=== PATIENT | female | born 1950 | race Caucasian/White ===

== ENCOUNTER → 2018-09-24 | Outpatient (CLI) | payer MEDICARE ==
--- NOTE | 2018-09-24 14:13 | XR ---
EXAMINATION TYPE: XR chest 2V DATE OF EXAM: 09/24/2018 COMPARISON: NONE HISTORY: Shortness of breath TECHNIQUE: Frontal and lateral views of the chest are obtained. FINDINGS: Scattered senescent parenchymal changes noted. Hyperinflation compatible with COPD. Patchy density within the region of the lingula may reflect underlying infiltrate. Correlate clinical ly and progress studies are recommended. Heart size is stable. Mediastinal structures are stable and grossly unremarkable. No evidence for hilar prominence. Degenerative changes dorsal spine. IMPRESSION: 1. Patchy density within the region of the lingula may reflect underlying infiltrate. Correlate clini kenan and progress studies are recommended.
== END | disposition home or self-care (01) ==
LOC: RADXRYALE 13:54
PROVIDERS: ATTEND Physician Assistant Medical
DX: J98.4 Other disorders of lung (principal)
CPT/HCPCS: 71046

== ENCOUNTER 2019-03-27 16:18 | Inpatient (IN) | payer MEDICARE ==
[2019-03-27] MEDS ORDERED: VANCOMYCIN IV PER PHARMACY 1 EACH MISC MISCELLANE PRN (16:27)
[2019-03-27] MEDS ORDERED: CEFEPIME 2 GM in SODIUM CHLORIDE 0.9% 100 ML IVPB STA (16:29)
[2019-03-27] MEDS ORDERED: IPRATROPIUM-ALBUTEROL 3 ML NEB INHALATION STA (16:31)
--- NOTE | 2019-03-27 16:35 | ED ---
General Adult HPI - General Chief complaint: Fever Stated complaint: sepsis Time Seen by Provider: 03/27/19 16:20 - History of Present Illness Initial comments: Patient is a 69-year-old female with a history of dementia who presents with a chief complaint of fever, weakness, and a fall at home. The patient is unable to offer history, history obtained by EMS. They stated that they were called after the patient had a fall while trying to get up from the commode. The patient did not fall completely to the floor as her family was there and caught her. They state that the patient has been gradually weaker over the last 3 day s. They cannot identify an inciting incident. There are no aggravating or alleviating factors. Patient currently is nonverbal, it is reported by EMS of the patient is DO NOT RESUSCITATE DO NOT INTUBATE. Per EMS, patient was febrile at 102.9 with an axillary temperature, 91% on room air, hypotensive initially but responsive to IV fluid. 6:08 PM Family bedside, they state that over the last 3 days, the patient has become weaker and less coherent. She has been frequently urinating, and they note a strong odor to the urine - Related Data Home Medications Medication Instructions Recorded Confirmed Multivitamins, Thera [Multivitamin 1 tab PO DAILY 11/21/15 03/27/19 (formulary)] Clopidogrel Bisulfate [Plavix] 75 mg PO DAILY 03/27/19 03/27/19 Donepezil [Aricept] 10 mg PO DAILY 03/27/19 03/27/19 Memantine [Namenda] 10 mg PO DAILY 03/27/19 03/27/19 risperiDONE [RisperDAL] 1 mg PO HS 03/27/19 03/27/19 traZODone HCL 150 mg PO HS 03/27/19 03/27/19 Previous Rx's Medication Instructions Recorded Acetaminophen Tab [Tylenol] 650 mg PO Q6HR PRN #0 tab 11/28/15 Aspirin EC [Ecotrin] 325 mg PO DAILY #0 tablet. 11/28/15 Atorvastatin [Lipitor] 80 mg PO HS #30 tab 11/28/15 Metoprolol Tartrate [Lopressor] 50 mg PO BID #60 tab 11/28/15 Nitroglycerin Sl Tabs [Nitrostat] 0.4 mg SUBLINGUAL Q5M PRN #30 tab 11/28/15 Allergies Allergy/AdvReac Type Severity Reaction Status Date / Time No Known Allergies Allergy Verified 04/14/16 11:50 Review of Systems ROS Statement: Those systems with pertinent positive or pertinent negative responses have been documented in the HPI. ROS Other: All systems not noted in ROS Statement are negative. Limitations: ROS unobtainable due to patients medical condition Past Medical History Past Medical History: Coronary Artery Disease (CAD), COPD, Hypertension History of Any Multi-Drug Resistant Organisms: None Reported Additional Past Surgical History / Comment(s): ANKLE SURGERY Past Anesthesia/Blood Transfusion Reactions: No Reported Reaction Additional Past Anesthesia/Blood Transfusion Reaction / Comment(s): NEVER RECEIVED BLOOD Past Psychological History: Anxiety, Depression Smoking Status: Current every day smoker Past Alcohol Use History: None Reported Past Drug Use History: None Reported - Past Family History Mother History Unknown: Yes Additional Family Medical History / Comment(s): PATIENT ADOPTED Father History Unknown: Yes Additional Family Medical History / Comment(s): PATIENT ADOPTED. General Exam Limitations: altered mental status, physical limitation General appearance: alert, in distress Head exam: Present: atraumatic, normocephalic Eye exam: Present: normal appearance ENT exam: Present: mucous membranes dry Neck exam: Present: normal inspection, other (No JVD) Respiratory exam: Present: respiratory distress, wheezes Cardiovascular Exam: Present: normal rhythm, tachycardia GI/Abdominal exam: Present: soft. Absent: distended, tenderness Rectal exam: Present: deferred External exam: Present: normal external exam Extremities exam: Present: other (Distal pulses are thready, kneecaps appear to be mildly mottled) Back exam: Present: normal inspection Neurological exam: Present: altered Psychiatric exam: Present: anxious Skin exam: Present: dry, intact, mottled Course Vital Signs 03/27/19 03/27/19 03/27/19 16:27 16:34 16:53 Temperature 103.0 F H Pulse Rate 120 H 114 H 120 H Pulse Rate [ Bilateral Radial] Respiratory 45 H 36 H 33 H Rate Blood Pressure 114/80 O2 Sat by Pulse 92 L Oximetry 03/27/19 03/27/19 03/27/19 17:30 18:30 19:51 Temperature Pulse Rate 108 H 105 H 114 H Pulse Rate [ Bilateral Radial] Respiratory 30 H 30 H 45 H Rate Blood Pressure 98/62 97/63 152/85 O2 Sat by Pulse 95 95 92 L Oximetry 03/27/19 03/27/19 03/27/19 20:04 20:07 20:48 Temperature 99.5 F 100.2 F H Pulse Rate 115 H Pulse Rate [ 116 H Bilateral Radial] Respiratory 32 H 24 Rate Blood Pressure 111/80 O2 Sat by Pulse 92 L Oximetry 03/27/19 20:52 Temperature Pulse Rate 120 H Pulse Rate [ Bilateral Radial] Respiratory 28 H Rate Blood Pressure 131/86 O2 Sat by Pulse 91 L Oximetry Procedures - Central Line Placement Right IJ Consent Obtained: verbal consent, written consent Patient Placed on Monitor/Pulse Ox: Yes Prep: mask, gown, gloves Central Line Prep: Chlorhexidine scrub Local Anesthesia Used: Lidocaine 1% Amount of Anesthesia Used (mls): 3 Ultrasound Used for Placement: Yes Central Line Lumen Inserted: triple Bloods Obtained for Lab: Yes Central Line Position: good blood return, all ports aspirated, flushed, capped, sutured in place with nylon Dressing Applied: Tegaderm Post Procedure X-Ray: tip of catheter in good position Patient Tolerated Procedure: well Complications: none Medical Decision Making - Medical Decision Making Patient presents with a chief complaint of weakness and fever. On initial evaluation, patient is febrile, hypoxic on room air, and hypotensive. She appears septic, at this time source unknown. 2 IVs established, patient given 30 mL per KG of IV fluid, cultures and lactic drawn. We'll get a straight cath urine. Patient started on vancomycin and cefepime empirically for sepsis. We'll evaluate with a chest x-ray, computed tomography scan of the abdomen and pelvis, computed tomography scan of the head. Patient left including cardiac enzymes and venous blood gas were obtained. 6:08 PM Vital evaluation of this patient shows white blood cells of 4.0, hemoglobin stable at 12.2. Like acid is 3.5, alk phos of 1.35. Urinalysis shows evidence of urinary tract infection. Culture sent. A multiple re-evaluations, patient's vital signs continue to improve. She is currently at computed tomography scan. We'll repeat lactic after fluid boluses. 7:[address] shows right sided hydronephrosis and a distal 5mm ureteral calculus. patient persistently hypotensive. I discussed the results with the family, they are agreeable to central line. Case discussed with Dr. Beltrán. family agreeable to urologic procedure if needed. Case discussed with Dr. Camejo who accepts admission. Page placed to Dr. Castillo for ICU admission. CXR shows slight worsening of lung infiltrates, will hold on further fluid boluses. line tip in SVC, ok to use. 8:50 PM Case discussed with Dr. Walker. He is aware of the patient. repeat lactic is 1.3, VBG shows a PH of 7.35. - Lab Data Result diagrams: 03/28/19 05:10 03/28/19 05:10 Lab Results 03/27/19 03/27/19 03/27/19 Range/Units 16:22 16:22 16:22 WBC 4.0 (3.8-10.6) k/uL RBC 4.70 (3.80-5.40) m/uL Hgb 12.2 (11.4-16.0) gm/dL Hct 38.8 (34.0-46.0) % MCV 82.6 (80.0-100.0) fL MCH 26.0 (25.0-35.0) pg MCHC 31.4 (31.0-37.0) g/dL RDW 17.1 H (11.5-15.5) % Plt Count 254 (150-450) k/uL Neutrophils % 91 % Lymphocytes % 3 % Monocytes % 1 % Eosinophils % 1 % Basophils % 1 % Neutrophils # 3.6 (1.3-7.7) k/uL Lymphocytes # 0.1 L (1.0-4.8) k/uL Monocytes # 0.1 (0-1.0) k/uL Eosinophils # 0.1 (0-0.7) k/uL Basophils # 0.0 (0-0.2) k/uL Manual Slide Review Performed Anisocytosis Slight PT (9.0-12.0) sec INR (<1.2) VBG pH (7.31-7.41) VBG pCO2 (37-51) mmHg VBG HCO3 (24-28) mmol/L Sodium 142 (137-145) mmol/L Potassium 3.5 (3.5-5.1) mmol/L Chloride 106 (98-107) mmol/L Carbon Dioxide 23 (22-30) mmol/L Anion Gap 13 mmol/L BUN 22 H (7-17) mg/dL Creatinine 0.71 (0.52-1.04) mg/dL Est GFR (CKD-EPI)AfAm >90 (>60 ml/min/1.73 sqM) Est GFR (CKD-EPI)NonAf 87 (>60 ml/min/1.73 sqM) Glucose 196 H (74-99) mg/dL Lactic Ac Sepsis Rflx Plasma Lactic Acid Duncan 3.5 H* (0.7-2.0) mmol/L Calcium 8.7 (8.4-10.2) mg/dL Total Bilirubin 0.4 (0.2-1.3) mg/dL AST 87 H (14-36) U/L ALT 26 (9-52) U/L Alkaline Phosphatase 135 H (38-126) U/L Troponin I (0.000-0.034) ng/mL Total Protein 6.6 (6.3-8.2) g/dL Albumin 3.3 L (3.5-5.0) g/dL Urine Color Urine Appearance (Clear) Urine pH (5.0-8.0) Ur Specific Cook (1.001-1.035) Urine Protein (Negative) Urine Glucose (UA) (Negative) Urine Ketones (Negative) Urine Blood (Negative) Urine Nitrite (Negative) Urine Bilirubin (Negative) Urine Urobilinogen (<2.0) mg/dL Ur Leukocyte Esterase (Negative) Urine RBC (0-5) /hpf Urine WBC (0-5) /hpf Urine WBC Clumps (None) /hpf Ur Squamous Epith Cells (0-4) /hpf Hyaline Casts (0-2) /lpf Urine Mucus (None) /hpf 03/27/19 03/27/19 03/27/19 Range/Units 16:22 16:22 16:22 WBC (3.8-10.6) k/uL RBC (3.80-5.40) m/uL Hgb (11.4-16.0) gm/dL Hct (34.0-46.0) % MCV (80.0-100.0) fL MCH (25.0-35.0) pg MCHC (31.0-37.0) g/dL RDW (11.5-15.5) % Plt Count (150-450) k/uL Neutrophils % % Lymphocytes % % Monocytes % % Eosinophils % % Basophils % % Neutrophils # (1.3-7.7) k/uL Lymphocytes # (1.0-4.8) k/uL Monocytes # (0-1.0) k/uL Eosinophils # (0-0.7) k/uL Basophils # (0-0.2) k/uL Manual Slide Review Anisocytosis PT 11.0 (9.0-12.0) sec INR 1.0 (<1.2) VBG pH (7.31-7.41) VBG pCO2 (37-51) mmHg VBG HCO3 (24-28) mmol/L Sodium (137-145) mmol/L Potassium (3.5-5.1) mmol/L Chloride (98-107) mmol/L Carbon Dioxide (22-30) mmol/L Anion Gap mmol/L BUN (7-17) mg/dL Creatinine (0.52-1.04) mg/dL Est GFR (CKD-EPI)AfAm (>60 ml/min/1.73 sqM) Est GFR (CKD-EPI)NonAf (>60 ml/min/1.73 sqM) Glucose (74-99) mg/dL Lactic Ac Sepsis Rflx Plasma Lactic Acid Duncan (0.7-2.0) mmol/L Calcium (8.4-10.2) mg/dL Total Bilirubin (0.2-1.3) mg/dL AST (14-36) U/L ALT (9-52) U/L Alkaline Phosphatase (38-126) U/L Troponin I 0.083 H* (0.000-0.034) ng/mL Total Protein (6.3-8.2) g/dL Albumin (3.5-5.0) g/dL Urine Color Yellow Urine Appearance Cloudy H (Clear) Urine pH 6.0 (5.0-8.0) Ur Specific Cook 1.011 (1.001-1.035) Urine Protein 1+ H (Negative) Urine Glucose (UA) Negative (Negative) Urine Ketones Negative (Negative) Urine Blood Small H (Negative) Urine Nitrite Negative (Negative) Urine Bilirubin Negative (Negative) Urine Urobilinogen <2.0 (<2.0) mg/dL Ur Leukocyte Esterase Large H (Negative) Urine RBC 5 (0-5) /hpf Urine WBC 168 H (0-5) /hpf Urine WBC Clumps Moderate H (None) /hpf Ur Squamous Epith Cells 1 (0-4) /hpf Hyaline Casts 13 H (0-2) /lpf Urine Mucus Rare H (None) /hpf 03/27/19 03/27/19 03/27/19 Range/Units 16:22 17:06 19:33 WBC (3.8-10.6) k/uL RBC (3.80-5.40) m/uL Hgb (11.4-16.0) gm/dL Hct (34.0-46.0) % MCV (80.0-100.0) fL MCH (25.0-35.0) pg MCHC (31.0-37.0) g/dL RDW (11.5-15.5) % Plt Count (150-450) k/uL Neutrophils % % Lymphocytes % % Monocytes % % Eosinophils % % Basophils % % Neutrophils # (1.3-7.7) k/uL Lymphocytes # (1.0-4.8) k/uL Monocytes # (0-1.0) k/uL Eosinophils # (0-0.7) k/uL Basophils # (0-0.2) k/uL Manual Slide Review Anisocytosis PT (9.0-12.0) sec INR (<1.2) VBG pH 7.35 (7.31-7.41) VBG pCO2 42 (37-51) mmHg VBG HCO3 23 L (24-28) mmol/L Sodium (137-145) mmol/L Potassium (3.5-5.1) mmol/L Chloride (98-107) mmol/L Carbon Dioxide (22-30) mmol/L Anion Gap mmol/L BUN (7-17) mg/dL Creatinine (0.52-1.04) mg/dL Est GFR (CKD-EPI)AfAm (>60 ml/min/1.73 sqM) Est GFR (CKD-EPI)NonAf (>60 ml/min/1.73 sqM) Glucose (74-99) mg/dL Lactic Ac Sepsis Rflx Y Plasma Lactic Acid Duncan 1.3 (0.7-2.0) mmol/L Calcium (8.4-10.2) mg/dL Total Bilirubin (0.2-1.3) mg/dL AST (14-36) U/L ALT (9-52) U/L Alkaline Phosphatase (38-126) U/L Troponin I (0.000-0.034) ng/mL Total Protein (6.3-8.2) g/dL Albumin (3.5-5.0) g/dL Urine Color Urine Appearance (Clear) Urine pH (5.0-8.0) Ur Specific Cook (1.001-1.035) Urine Protein (Negative) Urine Glucose (UA) (Negative) Urine Ketones (Negative) Urine Blood (Negative) Urine Nitrite (Negative) Urine Bilirubin (Negative) Urine Urobilinogen (<2.0) mg/dL Ur Leukocyte Esterase (Negative) Urine RBC (0-5) /hpf Urine WBC (0-5) /hpf Urine WBC Clumps (None) /hpf Ur Squamous Epith Cells (0-4) /hpf Hyaline Casts (0-2) /lpf Urine Mucus (None) /hpf Critical Care Time Critical Care Time: Yes Total Critical Care Time: 31 (minutes) Critical Care Time: Due to a high probability of clinically significant, life threatening deterioration, the patient required my highest level of preparedness to intervene emergently and I personally spent this critical care time directly and personally managing the patient. This critical care time included obtaining a history; examining the patient; pulse oximetry; ordering and review of studies; arranging urgent treatment with development of a management plan; evaluation of patient's response to treatment; frequent reassessment; and, discussions with other providers. Disposition Clinical Impression: Urinary tract infection, Sepsis, Altered mental status, Lactic acidosis, Respiratory failure, Ureteral stone, Pneumonia Disposition: ADMITTED IP TO THIS [facility] Condition: Critical Decision to Admit Reason: Admit from EC - Out of Hospital Transfer - Req. Specs Out of Hospital Transfer - Requested Specifics: Intensive Care Unit
[2019-03-27 16:46] LABS: Anisocytosis Slight; Basophils % (A) 1 %; Eosinophils # (A) 0.1 k/uL (0-0.7); Eosinophils % (A) 1 %; HCT 38.8 % (34.0-46.0); HGB 12.2 gm/dL (11.4-16.0); Lymphocytes # (A) 0.1 k/uL (1.0-4.8); Lymphocytes % (A) 3 %; MCHC 31.4 g/dL (31.0-37.0); MCV 82.6 fL (80.0-100.0); Mean Platelet Volume 7.3; Monocytes # (A) 0.1 k/uL (0-1.0); Monocytes % (A) 1 %; Neutrophils # (A) 3.6 k/uL (1.3-7.7); Neutrophils % (A) 91 %; Platelet Count 254 k/uL (150-450); RDW 17.1 % (11.5-15.5)
[2019-03-27 16:49] LABS: Appearance,Urine Cloudy (Clear); Bilirubin,Urine Negative (Negative); Blood,Urine Small (Negative); Color,Urine Yellow; Glucose,Urine (UA) Negative (Negative); Hyaline Casts,Urine 13 /lpf (0-2); Ketones,Urine Negative (Negative); Leukocyte Esterase,Urine Large (Negative); Mucus,Urine Rare /hpf; Nitrite,Urine Negative (Negative); Protein,Urine 1+ (Negative); RBC,Urine 5 /hpf (0-5); Specific Gravity,Urine 1.011 (1.001-1.035); Squamous Epithelial Cell,Urine 1 /hpf (0-4); Urobilinogen,Urine <2.0 mg/dL (<2.0); WBC,Urine 168 /hpf (0-5)
[2019-03-27] MEDS: SODIUM CHLORIDE 0.9% 500 ML 500 ML IV SCH ×2 (16:50→16:51)
[2019-03-27] MEDS ORDERED: VANCOMYCIN 1,500 MG in SODIUM CHLORIDE 0.9% 250 ML IVPB STA (16:54)
[2019-03-27 16:56] LABS: ALT 26 U/L (9-52); AST 87 U/L (14-36); African American GFR (CKD) >90 (>60 ml/min/1.73 sqM); Albumin 3.3 g/dL (3.5-5.0); Alkaline Phosphatase 135 U/L (38-126); Anion Gap 13 mmol/L; Blood Urea Nitrogen 22 mg/dL (7-17); Calcium 8.7 mg/dL (8.4-10.2); Carbon Dioxide 23 mmol/L (22-30); Chloride 106 mmol/L (98-107); Glucose 196 mg/dL (74-99); Potassium 3.5 mmol/L (3.5-5.1); Sodium 142 mmol/L (137-145); Total Bilirubin 0.4 mg/dL (0.2-1.3); Total Protein 6.6 g/dL (6.3-8.2)
--- NOTE | 2019-03-27 17:01 | XR ---
EXAMINATION TYPE: XR chest 1V portable DATE OF EXAM: 03/27/2019 COMPARISON: 09/24/2018 HISTORY: Altered mental status. Sepsis. Fever. TECHNIQUE: Single frontal view of the chest is obtained. FINDINGS: There is coarsening of the interstitial pulmonary markings. There is no gross heart failur e. Thoracic aorta is atheromatous. There is no pleural effusion. There are chest leads. IMPRESSION: Pulmonary interstitial fibrosis and COPD. No significant change. Normal heart.
--- NOTE | 2019-03-27 18:42 | CT ---
EXAMINATION TYPE: CT abdomen pelvis w con DATE OF EXAM: 03/27/2019 COMPARISON: None HISTORY: Fever. CT DLP: 579.9 mGycm Automated exposure control for dose reduction was used. TECHNIQUE: Helical acquisition of images was performed from the lung bases through the pelvis. CONTRAST: Performed without Oral Contrast and with IV Contrast, patient injected with 100ml mL of Isovue 300. FINDINGS: There is some patchy airspace infiltrate in both lower lobes and more on the right side. Heart size i s normal. There is no pericardial effusion. There is noncalcified 12 mm somewhat spiculated nodule in the lingula left upper lobe. Liver shows no focal defect. Gallbladder appears normal. There is no evidence of splenic mass. There is small hiatal hernia. Bile ducts are not dilated. There is no evidence of pancreatic mass. There is no adrenal mass. There are multiple large . calcifications in the right kidney. these measur e up to 1.6 cm. There is right-sided hydronephrosis and hydroureter. There is possible 5 mm calcul us in the distal right ureter. There is Stapleton catheter in the urinary bladder. There is retained fecal material in the large bowel. There is no free fluid in the abdomen and pelvis . There is no sign of free air. There is no mesenteric edema. There is small calcification in the left kidney that measure up to 4 mm that are probably vascular. The lumbar vertebra have normal alignment. There is 20% depression superior endplate of T11 vertebra. The bony pelvis is intact. IMPRESSION: MULTIPLE RENAL CALCULI AND MUCH LARGER ON THE RIGHT SIDE. OBSTRUCTION OF THE RIGHT UPPER COLLECTING S YSTEM PROBABLY DUE TO STONE IN THE DISTAL RIGHT URETER. NO DEFINITE OBSTRUCTION SEEN ON THE LEFT SIDE . HETEROGENEOUS CORTICAL ENHANCEMENT OF THE RIGHT KIDNEY COMPARED TO THE LEFT IS SUGGESTIVE OF PYELON EPHRITIS. BILATERAL LOWER LOBE PATCHY AIRSPACE PNEUMONIA THAT IS WORSE ON THE RIGHT SIDE. SPICULATED DENSITY LINGULA LEFT UPPER LOBE. FOLLOW-UP RECOMMENDED. THIS APPEARS NEW COMPARED TO OLD C HEST CT SCAN OF 11/21/2015. TUMOR IS POSSIBLE. LOWER LOBE PULMONARY INFILTRATES ALSO PRESENT ON OLD CT SCAN AND SLIGHTLY INCREASED.
--- NOTE | 2019-03-27 18:44 | CT ---
EXAMINATION TYPE: CT brain wo con DATE OF EXAM: 03/27/2019 COMPARISON: 11/25/2015 HISTORY: Fever. CT DLP: 1086.6 mGycm Automated exposure control for dose reduction was used. FINDINGS: There is cerebral cortical atrophy. There is no mass effect nor midline shift. There is no sign of in tracranial hemorrhage. The calvarium is intact. There is some debris in the external auditory canals bilaterally. IMPRESSION: CEREBRAL ATROPHY. NO ACUTE INTRACRANIAL ABNORMALITY. NO CHANGE.
[2019-03-27 19:05] LABS: VBG PH 7.35 (7.31-7.41)
[2019-03-27] MEDS ORDERED: NOREPINEPHRINE 4 MG in SODIUM CHLORIDE 0.9% 250 ML IV ONE (19:10)
--- NOTE | 2019-03-27 19:58 | XR ---
EXAMINATION TYPE: XR chest 1V DATE OF EXAM: 03/27/2019 COMPARISON: 03/27/2019 HISTORY: Central line placement TECHNIQUE: Single frontal view of the chest is obtained. FINDINGS: There is right jugular catheter with the tip in the superior vena cava. There is coarse in terstitial pulmonary edema. Thoracic aorta is atheromatous. There are chest leads. IMPRESSION: No pneumothorax. Pulmonary interstitial edema increased slightly compared to recent exam today. This could relate to acute heart failure.
[2019-03-27] MEDS ORDERED: NALOXONE 0.4 MG/ML 1 ML VIAL IV PRN (20:23)
[2019-03-27] MEDS ORDERED: MIDAZOLAM 2 MG/2 ML VIAL ONE (21:29)
[2019-03-27] MEDS ORDERED: PHENYLEPHRINE-0.9% NACL SYG 1 MG/10 ML SYRINGE ONE (21:29)
[2019-03-27] MEDS ORDERED: fentaNYL (PF) 50 MCG/ML 2 ML AMP ONE (21:29)
[2019-03-27] MEDS ORDERED: ROCURONIUM BROMIDE 10 MG/ML 10 ML VIAL IV ONE (21:29)
[2019-03-27] MEDS ORDERED: PROPOFOL 10 MG/ML 20 ML VIAL IV ONE (21:29)
[2019-03-27] MEDS ORDERED: SUCCINYLCHOLINE CHLORIDE 100 MG/5 ML SYR IV ONE (21:29)
--- NOTE | 2019-03-27 21:31 | P.GSCN ---
History of Present Illness Consult date: 03/27/19 Reason for Consult: UTI with sepsis Requesting physician: Yuni Camejo History of present illness: The patient is a 69-year-old white female with no prior history of urolithiasis. She awoke this morning feeling normal. However, in the late morning she experienced difficulty voiding and was noted to be very weak. She was brought to the emergency room, at which time she was noted to have a fever. She exhibited signs of sepsis. A computed tomography scan shows evidence of right hydroureteronephrosis due to a 5 mm right distal ureteral calculus. She also has multiple large right renal calculi, as well as a small left renal calculus. Review of Systems - Constitutional Reports fever, Reports weakness - Genitourinary Genitourinary: Reports kidney stones Past Medical History Past Medical History: Coronary Artery Disease (CAD), COPD, Hypertension History of Any Multi-Drug Resistant Organisms: None Reported Additional Past Surgical History / Comment(s): ANKLE SURGERY Past Anesthesia/Blood Transfusion Reactions: No Reported Reaction Additional Past Anesthesia/Blood Transfusion Reaction / Comm: NEVER RECEIVED BLOOD Past Psychological History: Anxiety, Depression Smoking Status: Current every day smoker Past Alcohol Use History: None Reported Past Drug Use History: None Reported - Past Family History Mother History Unknown: Yes Additional Family Medical History / Comment(s): PATIENT ADOPTED Father History Unknown: Yes Additional Family Medical History / Comment(s): PATIENT ADOPTED. Medications and Allergies Home Medications Medication Instructions Recorded Confirmed Type Multivitamins, Thera [Multivitamin 1 tab PO DAILY 11/21/15 03/27/19 History (formulary)] Acetaminophen Tab [Tylenol] 650 mg PO Q6HR PRN #0 tab 11/28/15 03/27/19 Rx Aspirin EC [Ecotrin] 325 mg PO DAILY #0 tablet. 11/28/15 03/27/19 Rx Atorvastatin [Lipitor] 80 mg PO HS #30 tab 11/28/15 03/27/19 Rx Metoprolol Tartrate [Lopressor] 50 mg PO BID #60 tab 11/28/15 03/27/19 Rx Nitroglycerin Sl Tabs [Nitrostat] 0.4 mg SUBLINGUAL Q5M PRN #30 tab 11/28/15 03/27/19 Rx Clopidogrel Bisulfate [Plavix] 75 mg PO DAILY 03/27/19 03/27/19 History Donepezil [Aricept] 10 mg PO DAILY 03/27/19 03/27/19 History Memantine [Namenda] 10 mg PO DAILY 03/27/19 03/27/19 History risperiDONE [RisperDAL] 1 mg PO HS 03/27/19 03/27/19 History traZODone HCL 150 mg PO HS 03/27/19 03/27/19 History Allergies Allergy/AdvReac Type Severity Reaction Status Date / Time No Known Allergies Allergy Verified 04/14/16 11:50 Surgical - Exam Vital Signs Temp Pulse Resp BP Pulse Ox 103.0 F H 120 H 40 H 114/80 92 L 03/27/19 16:27 03/27/19 16:27 03/27/19 16:27 03/27/19 16:27 03/27/19 16:27 - General well developed, well nourished, moderate distress - Abdomen Abdomen: soft, non tender, no guarding, no rigid, no rebound Results - Labs 03/27/19 16:22 03/27/19 16:22 Abnormal Lab Results - Last 24 Hours (Table) 03/27/19 03/27/19 03/27/19 Range/Units 16:22 16:22 16:22 RDW 17.1 H (11.5-15.5) % Lymphocytes # 0.1 L (1.0-4.8) k/uL VBG HCO3 (24-28) mmol/L BUN 22 H (7-17) mg/dL Glucose 196 H (74-99) mg/dL Plasma Lactic Acid Duncan 3.5 H* (0.7-2.0) mmol/L AST 87 H (14-36) U/L Alkaline Phosphatase 135 H (38-126) U/L Troponin I (0.000-0.034) ng/mL Albumin 3.3 L (3.5-5.0) g/dL Urine Appearance (Clear) Urine Protein (Negative) Urine Blood (Negative) Ur Leukocyte Esterase (Negative) Urine WBC (0-5) /hpf Urine WBC Clumps (None) /hpf Hyaline Casts (0-2) /lpf Urine Mucus (None) /hpf 03/27/19 03/27/19 03/27/19 Range/Units 16:22 16:22 16:22 RDW (11.5-15.5) % Lymphocytes # (1.0-4.8) k/uL VBG HCO3 23 L (24-28) mmol/L BUN (7-17) mg/dL Glucose (74-99) mg/dL Plasma Lactic Acid Duncan (0.7-2.0) mmol/L AST (14-36) U/L Alkaline Phosphatase (38-126) U/L Troponin I 0.083 H* (0.000-0.034) ng/mL Albumin (3.5-5.0) g/dL Urine Appearance Cloudy H (Clear) Urine Protein 1+ H (Negative) Urine Blood Small H (Negative) Ur Leukocyte Esterase Large H (Negative) Urine WBC 168 H (0-5) /hpf Urine WBC Clumps Moderate H (None) /hpf Hyaline Casts 13 H (0-2) /lpf Urine Mucus Rare H (None) /hpf Diabetes panel 03/27/19 Range/Units 16:22 Sodium 142 (137-145) mmol/L Potassium 3.5 (3.5-5.1) mmol/L Chloride 106 (98-107) mmol/L Carbon Dioxide 23 (22-30) mmol/L BUN 22 H (7-17) mg/dL Creatinine 0.71 (0.52-1.04) mg/dL Glucose 196 H (74-99) mg/dL Calcium 8.7 (8.4-10.2) mg/dL AST 87 H (14-36) U/L ALT 26 (9-52) U/L Alkaline Phosphatase 135 H (38-126) U/L Total Protein 6.6 (6.3-8.2) g/dL Albumin 3.3 L (3.5-5.0) g/dL Calcium panel 03/27/19 Range/Units 16:22 Calcium 8.7 (8.4-10.2) mg/dL Albumin 3.3 L (3.5-5.0) g/dL Pituitary panel 03/27/19 Range/Units 16:22 Sodium 142 (137-145) mmol/L Potassium 3.5 (3.5-5.1) mmol/L Chloride 106 (98-107) mmol/L Carbon Dioxide 23 (22-30) mmol/L BUN 22 H (7-17) mg/dL Creatinine 0.71 (0.52-1.04) mg/dL Glucose 196 H (74-99) mg/dL Calcium 8.7 (8.4-10.2) mg/dL Adrenal panel 03/27/19 Range/Units 16:22 Sodium 142 (137-145) mmol/L Potassium 3.5 (3.5-5.1) mmol/L Chloride 106 (98-107) mmol/L Carbon Dioxide 23 (22-30) mmol/L BUN 22 H (7-17) mg/dL Creatinine 0.71 (0.52-1.04) mg/dL Glucose 196 H (74-99) mg/dL Calcium 8.7 (8.4-10.2) mg/dL Total Bilirubin 0.4 (0.2-1.3) mg/dL AST 87 H (14-36) U/L ALT 26 (9-52) U/L Alkaline Phosphatase 135 H (38-126) U/L Total Protein 6.6 (6.3-8.2) g/dL Albumin 3.3 L (3.5-5.0) g/dL - Imaging CT scan - abdomen: report reviewed, image reviewed Assessment and Plan (1) Calculus of kidney Current Visit: Yes Status: Acute Code(s): N20.0 - CALCULUS OF KIDNEY SNOMED Code(s): 81945466 (2) Hydronephrosis with renal and ureteral calculous obstruction Current Visit: Yes Status: Acute Code(s): N13.2 - HYDRONEPHROSIS WITH RENAL AND URETERAL CALCULOUS OBSTRUCTION SNOMED Code(s): 914727153 (3) Ureteral stone Current Visit: Yes Status: Acute Code(s): N20.1 - CALCULUS OF URETER SNOMED Code(s): 04168086 (4) Acute pyelonephritis Current Visit: Yes Status: Acute Code(s): N10 - ACUTE PYELONEPHRITIS SNOME D Code(s): 94196490 Plan: The patient has received IV antibiotics. I have discussed her condition with her daughter. I have suggested she undergo cystoscopy with right ureteral stent insertion. The rationale for this was discussed. Also discussed were po tential risks, which include anesthesia, ureteral injury, and inability to successfully place a stent. The possible need for a nephrostomy tube was discussed. Also discussed was the fact that she will require definitive management of her urinary calculi after her infection has resolved. Time with Patient: Greater than 30
[2019-03-27] MEDS ORDERED: SODIUM CHLORIDE 0.9% 1,000 ML IV ONE (21:35)
[2019-03-27 22:44] LABS: Glucose,Whole Blood 224 mg/dL (75-99)
--- NOTE | 2019-03-27 22:45 | P.OP ---
Date of Procedure: 03/27/19 Preoperative Diagnosis: Acute right pyelonephritis, right hydronephrosis secondary to right ureteral calculus Postoperative Diagnosis: Same Procedure(s) Performed: Cystoscopy, right ureteral stent insertion Anesthesia: AMIRA Surgeon: Johnson Gaona Estimated Blood Loss (ml): 0 IV fluids (ml): 600 Pathology: none sent Condition: stable Disposition: PACU Indications for Procedure: The patient is a 69-year-old white female with no prior history of urolithiasis. She awoke this morning feeling normal. However, in the late morning she experienced difficulty voiding and was noted to be very weak. She was brought to the emergency room, at which time she was noted to have a fever. She exhibited signs of sepsis. A computed tomography scan shows evidence of right hydroureteronephrosis due to a 5 mm right distal ureteral calculus. She also has multiple large right renal calculi, as well as a small left renal calculus. She now comes for cystoscopy with right ureteral stent insertion. Operative Findings: Obstructing right distal ureteral calculus. Purulent urine drained from right kidney. Description of Procedure: The patient was taken to the operating room and placed in the dorsolithotomy pos ition, with legs supported in Cheng stirrups. The external genitalia was prepped and draped sterilely. The 30 lens was used to introduce the 22-Sammarinese Stortz cystoscopic sheath through the urethra and into the bladder under direct vision. The bladder was examined in its entirety. The left ureteral orifice appeared normal. The right ureteral orifice was edematous. No tumors or foreign bodies were seen. An angle-tip 0.035 inch Glidewire was passed through the cystoscope. The right ureteral orifice was cannulated, and the Glidewire was slowly advanced. Obstruction from the calculus was met. As the Glidewire removed the calculus, paste-like material drained from the right ureteral orifice. However, the Glidewire could not be advanced beyond the calculus. Contrast was seen within the ureter, which was noted to be dilated and tortuous. A 10-Sammarinese cone-tipped catheter was used to cannulate the right ureteral orifice, and normal saline was injected in a retrograde fashion to dislodge the calculus. The Glidewire once again was passed through the cystoscope, and into the right ureter. With some manipulation, it was possible to advance the Glidewire beyond the calculus and up to the right renal pelvis, where it coiled. It should be noted that the ureter appeared to be somewhat tortuous as the Glidewire was advanced. A 26 cm, 6-Sammarinese double-J ureteral stent was placed o josé miguel the wire. Proper stent positioning was verified fluoroscopically and endoscopically. Purulent urine drained through the stent. With the beak of the cystoscope immediately adjacent to the distal end of the stent, a specimen of urine was obtained and sent for culture and sensitivity. The cystoscope was removed, and a Stapleton catheter was inserted into the bladder. The patient tolerated the procedure well was transferred directly to the ICU.
[2019-03-27 23:21] LABS: ABG Base Excess -5.7 mmol/L; ABG HCO3 21 mmol/L (21-25); ABG Oxygen Saturation 99.3 % (94-97); ABG PCO2 46 mmHg (35-45); ABG PH 7.27 (7.35-7.45); ABG PO2 303 mmHg (83-108); ABG TCO2 23 mmol/L (19-24); Allen Test Performed? Yes
--- NOTE | 2019-03-27 23:45 | XR ---
EXAM: XR Chest, 1 View CLINICAL HISTORY: Endotracheal tube TECHNIQUE: Frontal view of the chest. COMPARISON: No relevant prior studies available. FINDINGS: Lungs: Diffuse airspace opacities which may represent pulmonary edema versus an infectious process. Pleural space: Unremarkable. No pneumothorax. Heart: Unremarkable. No cardiomegaly. Mediastinum: Unremarkable. Bones/joints: Degenerative changes of the osseous structures. Tubes, lines and devices: Endotracheal tube terminates 3 cm above the antonette. Right IJ central venous catheter with tip in the distal SVC. Enteric tube is seen with tip in the gastric body. Recommend advancement by 5 cm. IMPRESSION: 1. Endotracheal tube terminates 3 cm above the antonette. 2. Right IJ central venous catheter with tip in the distal SVC. 3. Enteric tube is seen with tip in the gastric body. Recommend advancement by 5 cm. 4. Diffuse airspace opacities which may represent pulmonary edema versus an infectious process.
[2019-03-28] MEDS: PANTOPRAZOLE 40 MG/10 ML VIAL IVP SCH ×2 (00:31→08:03)
[2019-03-28] MEDS: SODIUM CHLORIDE 0.9% 1,000 ML IV SCH ×2 (00:45→23:50)
[2019-03-28 01:28] LABS: Glucose,Whole Blood 219 mg/dL (75-99)
[2019-03-28] MEDS: PROPOFOL 1,000 MG in EMPTY BAG 1 BAG IV SCH ×3 (01:50→20:01)
[2019-03-28] MEDS: INSULIN ASPART (NovoLOG) 100 UNIT/ML VIAL SQ SCH ×4 (01:59→17:22)
[2019-03-28] MEDS: HEPARIN SODIUM,PORCINE 5,000 UNIT/ML 1 ML VIAL SQ SCH ×3 (02:00→15:14)
--- NOTE | 2019-03-28 03:21 | XR ---
EXAM: XR Chest, 1 View CLINICAL HISTORY: OG tube placement TECHNIQUE: Frontal view of the chest. COMPARISON: X-ray dated 03/27/2019 FINDINGS: Lungs: Diffuse airspace opacities. Pleural space: Probable bilateral pleural effusions, left greater than right. No pneumothorax. Heart: Unchanged. Mediastinum: Unremarkable. Bones/joints: Unchanged. Tubes, lines and devices: Enteric tube is seen coursing of the stomach with the tip not visualized. Right IJ central venous catheter tip at the cavoatrial junction. Endotracheal tube within the thoracic inlet terminating 2 cm above the antonette. IMPRESSION: 1. Enteric tube is seen coursing of the stomach with the tip not visualized. 2. Right IJ central venous catheter tip at the cavoatrial junction. 3. Endotracheal tube within the thoracic inlet terminating 2 cm above the antonette. 4. Diffuse airspace opacities. 5. Probable bilateral pleural effusions, left greater than right.
[2019-03-28] MEDS: NOREPINEPHRINE 8 MG in SODIUM CHLORIDE 0.9% 250 ML IV SCH ×2 (05:07→15:10)
[2019-03-28 05:13] LABS: Glucose,Whole Blood 197 mg/dL (75-99)
[2019-03-28] MEDS: VANCOMYCIN 1,250 MG in SODIUM CHLORIDE 0.9% 250 ML IVPB SCH ×2 (05:23→17:23)
[2019-03-28 05:48] LABS: ALT 30 U/L (9-52); AST 65 U/L (14-36); African American GFR (CKD) >90 (>60 ml/min/1.73 sqM); Albumin 2.7 g/dL (3.5-5.0); Alkaline Phosphatase 87 U/L (38-126); Anion Gap 8 mmol/L; Blood Urea Nitrogen 14 mg/dL (7-17); Calcium 7.3 mg/dL (8.4-10.2); Carbon Dioxide 24 mmol/L (22-30); Chloride 111 mmol/L (98-107); Glucose 190 mg/dL (74-99); Magnesium 1.2 mg/dL (1.6-2.3); Phosphorus 3.9 mg/dL (2.5-4.5); Potassium 3.1 mmol/L (3.5-5.1); Sodium 143 mmol/L (137-145); Total Bilirubin 0.6 mg/dL (0.2-1.3); Total Protein 5.8 g/dL (6.3-8.2)
[2019-03-28 05:57] LABS: Anisocytosis Slight; HCT 32.8 % (34.0-46.0); HGB 10.4 gm/dL (11.4-16.0); Hypochromasia Moderate; MCHC 31.7 g/dL (31.0-37.0); MCV 85.2 fL (80.0-100.0); Mean Platelet Volume 7.1; Platelet Count 225 k/uL (150-450); RBC 3.85 m/uL (3.80-5.40); RDW 16.8 % (11.5-15.5); WBC 20.2 k/uL (3.8-10.6)
--- NOTE | 2019-03-28 06:10 | FL ---
FLUOROSCOPY 60 seconds of fluoroscopy time were utilized during placement of a right ureteral stent. 2 images doc ument the procedure.
[2019-03-28] MEDS ORDERED: Potassium Replacement Protocol 1 EACH MISC MISCELLANE PRN (06:26)
[2019-03-28] MEDS ORDERED: Magnesium Replacement Protocol 1 EACH MISC MISCELLANE PRN (06:26)
[2019-03-28] MEDS: MAGNESIUM SULFATE-D5W PMX 1 GM in DEXTROSE/WATER 1 100ML.BAG IVPB SCH ×3 (06:50→10:40)
[2019-03-28] MEDS: POTASSIUM BICARBONATE/CIT AC 20 MEQ TABLET.EFF NG-TUBE SCH ×2 (06:50→07:13)
[2019-03-28 06:52] LABS: ABG HCO3 24 mmol/L (21-25); ABG Oxygen Saturation 97.7 % (94-97); ABG PCO2 48 mmHg (35-45); ABG PO2 111 mmHg (83-108); ABG TCO2 25 mmol/L (19-24)
[2019-03-28 06:54] LABS: Band Neutrophils % 39 %; Metamyelocytes % 2 %; Neutrophils % (M) 55 %; Nucleated Red Blood Cells 0 /100 WBC (0-0); Total Cells Counted 100
[2019-03-28] MEDS: IPRATROPIUM-ALBUTEROL 3 ML NEB INHALATION PRN ×4 (07:39→19:12)
[2019-03-28] MEDS: CEFEPIME 2 GM in SODIUM CHLORIDE 0.9% 100 ML IVPB SCH ×3 (08:03→23:50)
--- NOTE | 2019-03-28 11:19 | P.CNPUL ---
History of Present Illness Consult date: 03/28/19 Reason for consult: other (septic shock) Chief complaint: difficulty voiding, weakness, and fever. History of present illness: this is a 69-year-old female with history of multiple medical problems including dementia,coronary artery disease, chronic obstructive pulmonary disease, hypertension, depression, generalized anxiety disorder,patient presented to the ER mostly with 1 day history of weakness, fever, and apparently falling at home. Upon arrival to the ER, patient was confused, and she had altered mental stat us. Family has been noticing generalized weakness for the last 3 days. And upon arrival she had a temp of 102.9. And her O2 saturations was 91% on room air. Her blood pressure was noted to be low upon presentation.patient was also complaining of difficulty voiding, her urinalysiswas consistent with urinary tract infection,lactic acid was 3.5, hence the patient was felt to be septic. Responded initially to fluid boluses, however she was later placed on norepinephrine, and a central line was placed.CT of the abdomen and pelvis showed right-sided hydronephrosis and hydroureter. Also raise the possibility of a 5 mm calculus in the distal right ureter.but also raised the possibility of a spiculated density in the lingula left upper lobe, was not present on a previous CT of the chest from 2016, and the radiologist raised the possibility of malignancy involving the left lung. Patchy basilar infiltrates were noted. Patient was seen by urology on consultation,she underwent cystoscopy, right ureteral stent insertion, this was done under general anesthesia, patient came back on mechanical ventilation, and on norepinephrine presently at 0.15 mcg/kg/m. Patient also received 2 L of fluid boluses prior to norepinephrine. Patient is now in the ICU, he is mechanically ventilated, sedated, and her vent settings are assist control rate of 18 tidal volume of 455-45% PEEP of 5. She is also on propofol at 55 mcg/kg/m.today's labs showed improvement in her lactic acid down to 1.3 WBC count is 20.2 hemoglobin is 10.4.ABG showed a pO2 of 111 pCO2 of 48 pH of 7.30 hence her rate was increased from 16-18.chest x-ray showed adequate placement of the endotracheal tube, it also showed right IJ central line in place, and diffuse airspace opacities with small bilateral pleural effusions left greater than right.blood cultures are showing gram-negative bacilli. Final report is pending. Review of Systems ROS unobtainable: due to endotracheal tube Past Medical History Past Medical History: Coronary Artery Disease (CAD), COPD, Hypertension History of Any Multi-Drug Resistant Organisms: None Reported Additional Past Surgical History / Comment(s): ANKLE SURGERY Past Anesthesia/Blood Transfusion Reactions: No Reported Reaction Additional Past Anesthesia/Blood Transfusion Reaction / Comment(s): NEVER RECEIVED BLOOD Past Psychological History: Anxiety, Depression Smoking Status: Current every day smoker Past Alcohol Use History: None Reported Past Drug Use History: None Reported - Past Family History Mother History Unknown: Yes Additional Family Medical History / Comment(s): PATIENT ADOPTED Father History Unknown: Yes Additional Family Medical History / Comment(s): PATIENT ADOPTED. Medications and Allergies Home Medications Medication Instructions Recorded Confirmed Type Multivitamins, Thera [Multivitamin 1 tab PO DAILY 11/21/15 03/27/19 History (formulary)] Acetaminophen Tab [Tylenol] 650 mg PO Q6HR PRN #0 tab 11/28/15 03/27/19 Rx Aspirin EC [Ecotrin] 325 mg PO DAILY #0 tablet. 11/28/15 03/27/19 Rx Atorvastatin [Lipitor] 80 mg PO HS #30 tab 11/28/15 03/27/19 Rx Metoprolol Tartrate [Lopressor] 50 mg PO BID #60 tab 11/28/15 03/27/19 Rx Nitroglycerin Sl Tabs [Nitrostat] 0.4 mg SUBLINGUAL Q5M PRN #30 tab 11/28/15 03/27/19 Rx Clopidogrel Bisulfate [Plavix] 75 mg PO DAILY 03/27/19 03/27/19 History Donepezil [Aricept] 10 mg PO DAILY 03/27/19 03/27/19 History Memantine [Namenda] 10 mg PO DAILY 03/27/19 03/27/19 History risperiDONE [RisperDAL] 1 mg PO HS 03/27/19 03/27/19 History traZODone HCL 150 mg PO HS 03/27/19 03/27/19 History Allergies Allergy/AdvReac Type Severity Reaction Status Date / Time No Known Allergies Allergy Verified 04/14/16 11:50 Physical Exam Vitals: Vital Signs Temp Pulse Pulse Resp BP Pulse Ox 03/28/19 07:57 76 16 06/23/19 07:39 71 16 03/28/19 06:00 73 16 93 L 03/28/19 05:45 73 16 93 L 03/28/19 05:30 74 16 93 L 03/28/19 05:15 67 22 93 L 03/28/19 05:00 70 19 93 L 03/28/19 04:45 79 30 H 92 L 03/28/19 04:30 77 27 H 92 L 03/28/19 04:15 80 35 H 92 L 03/28/19 04:00 98.4 F 79 24 91 L 03/28/19 03:45 80 17 95 03/28/19 03:30 80 17 94 L 03/28/19 03:15 85 17 94 L 03/28/19 03:00 88 18 94 L 03/28/19 02:45 97 18 92 L 03/28/19 02:30 84 27 H 92 L 03/28/19 02:15 87 27 H 93 L 03/28/19 02:00 85 21 92 L 03/28/19 01:45 94 25 H 87 L 03/28/19 01:30 96 20 90 L 03/28/19 01:15 97 21 88 L 03/28/19 01:00 94 32 H 91 L 03/28/19 00:45 93 20 96 03/28/19 00:30 95 15 96 03/28/19 00:26 96 19 96 03/28/19 00:15 98 19 96 03/28/19 00:00 104 H 17 92/65 96 03/27/19 23:45 112 H 17 96 03/27/19 23:30 116 H 28 H 96 03/27/19 23:15 116 H 16 97 03/27/19 23:00 112 H 45 H 98 03/27/19 22:45 112 H 30 H 97 03/27/19 20:52 120 H 28 H 131/86 91 L 03/27/19 20:48 100.2 F H 116 H 24 03/27/19 20:07 99.5 F 03/27/19 20:04 115 H 32 H 111/80 92 L 03/27/19 19:51 114 H 45 H 152/85 92 L 03/27/19 18:30 105 H 30 H 97/63 95 03/27/19 17:30 108 H 30 H 98/62 95 03/27/19 16:53 120 H 33 H 03/27/19 16:34 114 H 36 H 03/27/19 16:27 103.0 F H 120 H 45 H 114/80 92 L Intake and Output 03/27/19 03/28/19 03/28/19 22:59 06:59 14:59 Intake Total 600 310.133 Output Total 0 935 Balance 600 -624.867 Intake: IV 600 245 Sodium Chloride 0.9% 1, 120 000 ml @ 20 mls/hr IV . Q24H [facility] Rx#:[id number] Vancomycin 1,250 mg In 125 Sodium Chloride 0.9% 250 ml @ 125 mls/hr IVPB Q12H [facility] Rx#:[id number] Intake, IV Titration 65.133 Amount Norepinephrine 4 mg In 31.323 Sodium Chloride 0.9% 250 ml @ 0.05 MCG/KG/MIN 12. 961 mls/hr IV .[id number] [facility] Rx#:[id number] Propofol 1,000 mg In 33.810 Empty Bag 1 bag @ Titrate IV .Q0M [facility] Rx#: [id number] Output: Urine 935 Estimated Blood Loss 0 Other: Voiding Method Indwelling Catheter Weight 68.039 kg 58.8 kg ABP, PAP, CO, CI - Last 8 Hours Arterial Blood Pressure 107/56 Arterial Blood Pressure 99/55 Arterial Blood Pressure 110/57 Arterial Blood Pressure 93/47 Arterial Blood Pressure 140/66 Arterial Blood Pressure 93/55 Arterial Blood Pressure 105/56 Arterial Blood Pressure 109/58 Arterial Blood Pressure 96/52 Arterial Blood Pressure 112/57 Arterial Blood Pressure 106/58 Arterial Blood Pressure 99/54 Arterial Blood Pressure 95/54 Physical Exam: Revealed a 69-year-old female in no distress, on mechanical ventilation. Head: Atraumatic normocephalic, endotracheal tube is intact. Orogastric tube is intact. HEENT:[Neck is supple.] [No neck masses.] [No thyromegaly.] [No JVD.]dry mucous membranes be Chest: [minimal fine crackles at the bases bilaterally, no rhonchi no wheezes..] Cardiac Exam: [Normal S1 and S2, no S3 gallop, no murmur.] Abdomen: [Soft, nontender, no megaly, no rebound, no guarding, normal bowel sounds.] Extremities: [No clubbing, no edema, no cyanosis.] Neurological Exam: cannot be assessed, patient is sedated, presently on propofol. Psychiatric: Cannot be assessed. Lymphatics: No lymphadenopathy. Skin: No rashes.slightly mottled lower extremities noted. Skin is dry. Results - Laboratory Findings CBC and BMP: 03/28/19 05:10 03/28/19 05:10 ABG ABG pH 7.30 (7.35-7.45) L 03/28/19 06:48 ABG pCO2 48 mmHg (35-45) H 03/28/19 06:48 ABG pO2 111 mmHg (83-108) H 03/28/19 06:48 ABG O2 Saturation 97.7 % (94-97) H 03/28/19 06:48 PT/INR, D-dimer PT 11.0 sec (9.0-12.0) 03/27/19 16:22 INR 1.0 (<1.2) 03/27/19 16:22 Abnormal lab findings: Abnormal Labs 03/27/19 03/27/19 03/27/19 16:22 16:22 16:22 WBC Hgb Hct RDW 17.1 H Neutrophils # (Manual) Lymphocytes # 0.1 L Lymphocytes # (Manual) Metamyelocytes # (Man) ABG pH ABG pCO2 ABG pO2 ABG Total CO2 ABG O2 Saturation VBG HCO3 Potassium Chloride BUN 22 H Glucose 196 H POC Glucose (mg/dL) Plasma Lactic Acid Duncan 3.5 H* Calcium Magnesium AST 87 H Alkaline Phosphatase 135 H Troponin I Total Protein Albumin 3.3 L Urine Appearance Urine Protein Urine Blood Ur Leukocyte Esterase Urine WBC Urine WBC Clumps Hyaline Casts Urine Mucus 03/27/19 03/27/19 03/27/19 16:22 16:22 16:22 WBC Hgb Hct RDW Neutrophils # (Manual) Lymphocytes # Lymphocytes # (Manual) Metamyelocytes # (Man) ABG pH ABG pCO2 ABG pO2 ABG Total CO2 ABG O2 Saturation VBG HCO3 23 L Potassium Chloride BUN Glucose POC Glucose (mg/dL) Plasma Lactic Acid Duncan Calcium Magnesium AST Alkaline Phosphatase Troponin I 0.083 H* Total Protein Albumin Urine Appearance Cloudy H Urine Protein 1+ H Urine Blood Small H Ur Leukocyte Esterase Large H Urine WBC 168 H Urine WBC Clumps Moderate H Hyaline Casts 13 H Urine Mucus Rare H 03/27/19 03/27/19 03/28/19 22:42 23:16 01:27 WBC Hgb Hct RDW Neutrophils # (Manual) Lymphocytes # Lymphocytes # (Manual) Metamyelocytes # (Man) ABG pH 7.27 L ABG pCO2 46 H ABG pO2 303 H ABG Total CO2 ABG O2 Saturation 99.3 H VBG HCO3 Potassium Chloride BUN Glucose POC Glucose (mg/dL) 224 H 219 H Plasma Lactic Acid Duncan Calcium Magnesium AST Alkaline Phosphatase Troponin I Total Protein Albumin Urine Appearance Urine Protein Urine Blood Ur Leukocyte Esterase Urine WBC Urine WBC Clumps Hyaline Casts Urine Mucus 03/28/19 03/28/19 03/28/19 05:10 05:10 05:11 WBC 20.2 H Hgb 10.4 L Hct 32.8 L RDW 16.8 H Neutrophils # (Manual) 18.90 H Lymphocytes # Lymphocytes # (Manual) 0.40 L Metamyelocytes # (Man) 0.40 H ABG pH ABG pCO2 ABG pO2 ABG Total CO2 ABG O2 Saturation VBG HCO3 Potassium 3.1 L Chloride 111 H BUN Glucose 190 H POC Glucose (mg/dL) 197 H Plasma Lactic Acid Duncan Calcium 7.3 L Magnesium 1.2 L AST 65 H Alkaline Phosphatase Troponin I Total Protein 5.8 L Albumin 2.7 L Urine Appearance Urine Protein Urine Blood Ur Leukocyte Esterase Urine WBC Urine WBC Clumps Hyaline Casts Urine Mucus 03/28/19 06:48 WBC Hgb Hct RDW Neutrophils # (Manual) Lymphocytes # Lymphocytes # (Manual) Metamyelocytes # (Man) ABG pH 7.30 L ABG pCO2 48 H ABG pO2 111 H ABG Total CO2 25 H ABG O2 Saturation 97.7 H VBG HCO3 Potassium Chloride BUN Glucose POC Glucose (mg/dL) Plasma Lactic Acid Duncan Calcium Magnesium AST Alkaline Phosphatase Troponin I Total Protein Albumin Urine Appearance Urine Protein Urine Blood Ur Leukocyte Esterase Urine WBC Urine WBC Clumps Hyaline Casts Urine Mucus - Diagnostic Findings Chest x-ray: image reviewed (as noted in HPI.) Additional studies: CT of abdomen and pelvis as noted in HPI. Assessment and Plan Assessment: impression: 1 acute hypoxic respiratory failure secondary to gram-negative sepsis and septic shock. 2 acute urinary tract infection and hydronephrosis secondary to ureterolithiasis status post cystoscopy and stent placement. 3 acute gram-negative bacteremia, source is the urine unless for otherwise. 4 suspect some component of mild interstitial edema noted on the chest x-ray, possibility of evolving ARDS is not entirely ruled out.the findings could be related to the fluid boluses that the patient was given. 5 spiculated the left hilar nodule, will eventually need outpatient follow-up and dedicated CT of the chest which could be done on outpatient basis, however obviously the patient is not the greatest candidate for any pulmonary surgical intervention. 6 multiple comorbidities including history of dementia, hypertension, degenerative joint disease,coronary artery disease,dyslipidemia,previous evaluation for CABG, however the patient was felt to be a poor candidate for myocardial revascularization, and she was managed conservatively. Recommendation: Continue ventilatory support, nutritional support, GI and DVT pr ophylaxis, antibiotics, bronchodilators, patient is not ready for any form of weaning at this point, plan to keep the patient on mechanical ventilation, continue norepinephrine,/hemodynamic support, adjust antibiotics accordingly after the final culture and sensitivity is available, blood cultures are showing preliminary gram-negative bacilli, and again the most likely source is the urine. We will continue to follow. Prognosis is relatively guarded. Patient is critically ill, we will follow closely. Time with Patient: Greater than 30
[2019-03-28 11:24] LABS: Glucose,Whole Blood 202 mg/dL (75-99)
--- NOTE | 2019-03-28 14:42 | P.PN ---
Progress Note - Text Progress Note Date: 03/28/19 The patient remains on the ventilator for respiratory failure. She is also requiring the use of vasopressors. The Stapleton catheter is draining clear yellow urine. Her cultures of shown Proteus species, which strongly suggests not only a urinary tract source but that her stones are likely infected. In view of this, she will likely be advised to undergo an elective right percutaneous nephrolithotomy at some point in the future. For now, would continue Stapleton catheter drainage and broad-spectrum antibiotics.
[2019-03-28 17:18] LABS: Glucose,Whole Blood 177 mg/dL (75-99)
--- NOTE | 2019-03-28 18:34 | P.HPIM ---
History of Present Illness H&P Date: 03/28/19 Chief Complaint: Fever, weakness and fall at home Mr. Patiño is a 69-year-old female with a past medical history of dementia, coronary artery disease, COPD, hypertension brought in via EMS for having a fall at home while trying to get up from the commode. Patient is intubated and in the ICU currently. So most of the history is obtained from the ED notes and nursing staff report. The patient has been weak and was not herself for the past 3 days, family thought that this was because of her dementia. But she became gradually weaker to the extent that she had a fall while trying to get up from the commode. Family reported that she has been having increased frequency of urination and also strong odor to the urine. At the time of admission patient was suppressed hypoxic and hypotensive. Patient was given 2 L of IV normal saline bolus and started on maintenance f luids. She also received a dose of vancomycin and cefepime empirically. Urine analysis was positive for large leukocyte esterase. CAT scan of the abdomen and pelvis was showing right-sided hydronephrosis and the distal 5 mm ureteral calculus. Urology Dr. Salgado was consulted. Last night patient had removal of the stone and a ureteral stent was placed. Patient's blood cultures were positive for Proteus. So vancomycin has been discontinued and cefepime is continued. Patient has history of COPD, so after the procedure the patient could not be extubated. Patient's medications have been reviewed. Active Medications Albuterol/Ipratropium (Duoneb 0.5 Mg-3 Mg/3 Ml Soln) 3 ml INHALATION RT-Q4H PRN PRN Reason: Shortness Of Breath Or Wheezing Last Admin: 03/28/19 15:26 Dose: 3 ml Documented by: Heparin Sodium (Porcine) (Heparin) 5,000 unit SQ Q8HR CHELITA Last Admin: 03/28/19 15:14 Dose: 5,000 unit Documented by: Vancomycin HCl 1,250 mg/ (Sodium Chloride) 250 mls @ 125 mls/hr IVPB Q12H CHELITA Last Admin: 03/28/19 17:23 Dose: 125 mls/hr Documented by: Sodium Chloride (Saline 0.9%) 1,000 mls @ 20 mls/hr IV .Q24H CHELITA Last Admin: 03/28/19 00:45 Dose: 20 mls/hr Documented by: Propofol 1,000 mg/ IV Solution 100 mls @ 0 mls/hr IV .Q0M [facility]; Protocol Last Admin: 03/28/19 04:00 Dose: 55 mcg/kg/min, 19.404 mls/hr Documented by: Norepinephrine Bitartrate 8 mg (/ Sodium Chloride) 258 mls @ 5.689 mls/hr IV .Q24H [facility]; Protocol Last Admin: 03/28/19 05:07 Dose: 0.35 mcg/kg/min, 39.822 mls/hr Documented by: Cefepime HCl 2 gm/ Sodium (Chloride) 100 mls @ 200 mls/hr IVPB Q8HR [facility] Last Admin: 03/28/19 15:14 Dose: 200 mls/hr Documented by: Insulin Aspart (Novolog) 0 unit SQ 0000,0600,1200,1800 [facility]; Protocol Last Admin: 03/28/19 17:22 Dose: 2 unit Documented by: Miscellaneous Information (Magnesium Per Protocol) 1 each MISCELLANE DAILY PRN; Protocol PRN Reason: Per Protocol Miscellaneous Information (Potassium Per Protocol) 1 each MISCELLANE DAILY PRN; Protocol PRN Reason: Per Protocol Morphine Sulfate (Morphine Sulfate (Inj)) 2 mg IV Q2HR PRN PRN Reason: Pain Scale 4 to 5 Naloxone HCl (Narcan) 0.2 mg IV Q2M PRN PRN Reason: Opioid Reversal Pantoprazole Sodium (Protonix) 40 mg IVP DAILY [facility] Last Admin: 03/28/19 08:03 Dose: 40 mg Documented by: Review of Systems Review of systems could not be done as the patient is intubated and sedated Past Medical History Past Medical History: Coronary Artery Disease (CAD), COPD, Hypertension History of Any Multi-Drug Resistant Organisms: None Reported Additional Past Surgical History / Comment(s): ANKLE SURGERY Past Anesthesia/Blood Transfusion Reactions: No Reported Reaction Additional Past Anesthesia/Blood Transfusion Reaction / Comment(s): NEVER RECEIVED BLOOD Past Psychological History: Anxiety, Depression Smoking Status: Current every day smoker Past Alcohol Use History: None Reported Past Drug Use History: None Reported - Past Family History Mother History Unknown: Yes Additional Family Medical History / Comment(s): PATIENT ADOPTED Father History Unknown: Yes Additional Family Medical History / Comment(s): PATIENT ADOPTED. Medications and Allergies Home Medications Medication Instructions Recorded Confirmed Type Multivitamins, Thera [Multivitamin 1 tab PO DAILY 11/21/15 03/27/19 History (formulary)] Acetaminophen Tab [Tylenol] 650 mg PO Q6HR PRN #0 tab 11/28/15 03/27/19 Rx Aspirin EC [Ecotrin] 325 mg PO DAILY #0 tablet. 11/28/15 03/27/19 Rx Atorvastatin [Lipitor] 80 mg PO HS #30 tab 11/28/15 03/27/19 Rx Metoprolol Tartrate [Lopressor] 50 mg PO BID #60 tab 11/28/15 03/27/19 Rx Nitroglycerin Sl Tabs [Nitrostat] 0.4 mg SUBLINGUAL Q5M PRN #30 tab 11/28/15 03/27/19 Rx Clopidogrel Bisulfate [Plavix] 75 mg PO DAILY 03/27/19 03/27/19 History Donepezil [Aricept] 10 mg PO DAILY 03/27/19 03/27/19 History Memantine [Namenda] 10 mg PO DAILY 03/27/19 03/27/19 History risperiDONE [RisperDAL] 1 mg PO HS 03/27/19 03/27/19 History traZODone HCL 150 mg PO HS 03/27/19 03/27/19 History Allergies Allergy/AdvReac Type Severity Reaction Status Date / Time No Known Allergies Allergy Verified 04/14/16 11:50 Physical Exam Vitals: Vital Signs Temp Pulse Pulse Resp BP Pulse Ox 03/28/19 17:15 90 25 H 82/61 92 L 03/28/19 17:00 83 21 82/61 91 L 03/28/19 16:45 87 22 82/61 92 L 03/28/19 16:30 75 18 82/61 92 L 03/28/19 16:15 82 18 82/61 89 L 03/28/19 16:00 98.5 F 84 20 82/61 91 L 03/28/19 15:45 82 14 82/61 91 L 03/28/19 15:39 84 03/28/19 15:30 85 18 82/61 87 L 03/28/19 15:26 84 03/28/19 15:15 73 18 82/61 94 L 03/28/19 15:00 80 18 82/61 92 L 03/28/19 14:45 82 22 82/61 93 L 03/28/19 14:30 77 18 82/61 92 L 03/28/19 14:15 79 18 82/61 93 L 03/28/19 14:00 79 18 82/61 92 L 03/28/19 13:45 80 18 82/61 92 L 03/28/19 13:30 79 18 82/61 94 L 03/28/19 13:15 82 22 82/61 95 03/28/19 13:00 77 14 82/61 94 L 03/28/19 12:45 77 18 82/61 95 03/28/19 12:30 75 18 95 03/28/19 12:15 69 18 82/61 94 L 03/28/19 12:00 97.5 F L 68 18 82/61 94 L 03/28/19 11:49 62 18 03/28/19 11:45 69 18 82/61 94 L 03/28/19 11:30 58 L 18 82/61 95 03/28/19 11:15 71 18 82/61 95 03/28/19 11:13 73 23 03/28/19 11:00 74 18 82/61 94 L 03/28/19 10:45 71 18 82/61 96 03/28/19 10:30 72 18 82/61 96 03/28/19 10:15 75 18 82/61 96 03/28/19 10:00 76 18 82/61 94 L 03/28/19 09:45 75 18 82/61 94 L 03/28/19 09:30 88 18 92/65 94 L 03/28/19 09:15 90 16 93 L 03/28/19 09:00 89 16 95 03/28/19 08:45 86 16 92/65 94 L 03/28/19 08:30 95 16 92/65 95 03/28/19 08:15 72 16 92/65 95 03/28/19 08:00 97.9 F 76 16 92/65 93 L 03/28/19 07:57 76 16 03/28/19 07:45 66 16 92/65 94 L 03/28/19 07:39 71 16 03/28/19 07:30 73 16 92/65 93 L 03/28/19 07:15 73 16 92/65 93 L 03/28/19 07:00 70 16 92/65 93 L 03/28/19 06:00 73 16 93 L 03/28/19 05:45 73 16 93 L 03/28/19 05:30 74 16 93 L 03/28/19 05:15 67 22 93 L 03/28/19 05:00 70 19 93 L 03/28/19 04:45 79 30 H 92 L 03/28/19 04:30 77 27 H 92 L 03/28/19 04:15 80 35 H 92 L 03/28/19 04:00 98.4 F 79 24 91 L 03/28/19 03:45 80 17 95 03/28/19 03:30 80 17 94 L 03/28/19 03:15 85 17 94 L 03/28/19 03:00 88 18 94 L 03/28/19 02:45 97 18 92 L 03/28/19 02:30 84 27 H 92 L 03/28/19 02:15 87 27 H 93 L 03/28/19 02:00 85 21 92 L 03/28/19 01:45 94 25 H 87 L 03/28/19 01:30 96 20 90 L 03/28/19 01:15 97 21 88 L 03/28/19 01:00 94 32 H 91 L 03/28/19 00:45 93 20 96 03/28/19 00:30 95 15 96 03/28/19 00:26 96 19 96 03/28/19 00:15 98 19 96 03/28/19 00:00 104 H 17 92/65 96 03/27/19 23:45 112 H 17 96 03/27/19 23:30 116 H 28 H 96 03/27/19 23:15 116 H 16 97 03/27/19 23:00 112 H 45 H 98 03/27/19 22:45 112 H 30 H 97 03/27/19 20:52 120 H 28 H 131/86 91 L 03/27/19 20:48 100.2 F H 116 H 24 03/27/19 20:07 99.5 F 03/27/19 20:04 115 H 32 H 111/80 92 L 03/27/19 19:51 114 H 45 H 152/85 92 L 03/27/19 18:30 105 H 30 H 97/63 95 Intake and Output 03/28/19 03/28/19 03/28/19 06:59 14:59 22:59 Intake Total 310.133 335 140 Output Total 935 605 380 Balance -624.867 -270 -240 Intake: IV 245 275 80 Sodium Chloride 0.9% 1, 120 150 80 000 ml @ 20 mls/hr IV . Q24H [facility] Rx#:[id number] Vancomycin 1,250 mg In 125 125 Sodium Chloride 0.9% 250 ml @ 125 mls/hr IVPB Q12H [facility] Rx#:[id number] Intake, IV Titration 65.133 Amount Norepinephrine 4 mg In 31.323 Sodium Chloride 0.9% 250 ml @ 0.05 MCG/KG/MIN 12. 961 mls/hr IV .[id number] [facility] Rx#:[id number] Propofol 1,000 mg In 33.810 Empty Bag 1 bag @ Titrate IV .Q0M [facility] Rx#: [id number] Tube Feeding 30 60 Other 30 Output: Urine 935 605 380 Uretheral (Stapleton) 90 40 Other: Voiding Method Indwelling Catheter Indwelling Catheter Indwelling Catheter # Bowel Movements 1 Weight 58.8 kg 58.8 kg ABP, PAP, CO, CI - Last 8 Hours Arterial Blood Pressure 113/54 Arterial Blood Pressure 103/51 Arterial Blood Pressure 101/52 Arterial Blood Pressure 103/50 Arterial Blood Pressure 105/52 Arterial Blood Pressure 105/52 Arterial Blood Pressure 99/48 Arterial Blood Pressure 99/52 Arterial Blood Pressure 99/49 Arterial Blood Pressure 103/51 Arterial Blood Pressure 105/52 Arterial Blood Pressure 105/52 Arterial Blood Pressure 93/52 Arterial Blood Pressure 92/50 Arterial Blood Pressure 94/49 Arterial Blood Pressure 98/49 Arterial Blood Pressure 104/54 Arterial Blood Pressure 98/50 Arterial Blood Pressure 100/51 Arterial Blood Pressure 104/51 Arterial Blood Pressure 102/50 Arterial Blood Pressure 107/51 Arterial Blood Pressure 130/62 Arterial Blood Pressure 112/52 Arterial Blood Pressure 111/55 Arterial Blood Pressure 123/59 Arterial Blood Pressure 105/53 Arterial Blood Pressure 111/57 Arterial Blood Pressure 101/52 GEN. APPEARANCE: Patient is mechanically ventilated and sedated HEAD EXAM: atraumatic, normocephalic, normal inspection. ENT EXAM: OG-tube in place NECK EXAM: No masses felt RESPIRATORY EXAM: Coarse breath sounds positive. Dry crackles at the lower lung bases. No wheezes CARDIOVASCULAR EXAM: S1-S2 heard no additional sounds GI/ABDOMINAL EXAM: soft, normal bowel sounds. EXTREMITIES EXAM: No pedal edema. BACK EXAM: normal inspection NEUROLOGICAL EXAM: sedated SKIN EXAM: warm, dry, intact, normal color. Absent: rash Results CBC & Chem 7: 03/28/19 05:10 03/28/19 05:10 Labs: Abnormal Lab Results - Last 24 Hours (Table) 03/27/19 03/27/19 03/27/19 Range/Units 16:22 16:22 22:42 WBC (3.8-10.6) k/uL Hgb (11.4-16.0) gm/dL Hct (34.0-46.0) % RDW (11.5-15.5) % Neutrophils # (Manual) (1.3-7.7) k/uL Lymphocytes # (Manual) (1.0-4.8) k/uL Metamyelocytes # (Man) (0) k/uL ABG pH (7.35-7.45) ABG pCO2 (35-45) mmHg ABG pO2 (83-108) mmHg ABG Total CO2 (19-24) mmol/L ABG O2 Saturation (94-97) % VBG HCO3 23 L (24-28) mmol/L Potassium (3.5-5.1) mmol/L Chloride (98-107) mmol/L Glucose (74-99) mg/dL POC Glucose (mg/dL) 224 H (75-99) mg/dL Calcium (8.4-10.2) mg/dL Magnesium (1.6-2.3) mg/dL AST (14-36) U/L Troponin I 0.083 H* (0.000-0.034) ng/mL Total Protein (6.3-8.2) g/dL Albumin (3.5-5.0) g/dL 03/27/19 03/28/19 03/28/19 Range/Units 23:16 01:27 05:10 WBC 20.2 H (3.8-10.6) k/uL Hgb 10.4 L (11.4-16.0) gm/dL Hct 32.8 L (34.0-46.0) % RDW 16.8 H (11.5-15.5) % Neutrophils # (Manual) 18.90 H (1.3-7.7) k/uL Lymphocytes # (Manual) 0.40 L (1.0-4.8) k/uL Metamyelocytes # (Man) 0.40 H (0) k/uL ABG pH 7.27 L (7.35-7.45) ABG pCO2 46 H (35-45) mmHg ABG pO2 303 H (83-108) mmHg ABG Total CO2 (19-24) mmol/L ABG O2 Saturation 99.3 H (94-97) % VBG HCO3 (24-28) mmol/L Potassium (3.5-5.1) mmol/L Chloride (98-107) mmol/L Glucose (74-99) mg/dL POC Glucose (mg/dL) 219 H (75-99) mg/dL Calcium (8.4-10.2) mg/dL Magnesium (1.6-2.3) mg/dL AST (14-36) U/L Troponin I (0.000-0.034) ng/mL Total Protein (6.3-8.2) g/dL Albumin (3.5-5.0) g/dL 03/28/19 03/28/19 03/28/19 Range/Units 05:10 05:11 06:48 WBC (3.8-10.6) k/uL Hgb (11.4-16.0) gm/dL Hct (34.0-46.0) % RDW (11.5-15.5) % Neutrophils # (Manual) (1.3-7.7) k/uL Lymphocytes # (Manual) (1.0-4.8) k/uL Metamyelocytes # (Man) (0) k/uL ABG pH 7.30 L (7.35-7.45) ABG pCO2 48 H (35-45) mmHg ABG pO2 111 H (83-108) mmHg ABG Total CO2 25 H (19-24) mmol/L ABG O2 Saturation 97.7 H (94-97) % VBG HCO3 (24-28) mmol/L Potassium 3.1 L (3.5-5.1) mmol/L Chloride 111 H (98-107) mmol/L Glucose 190 H (74-99) mg/dL POC Glucose (mg/dL) 197 H (75-99) mg/dL Calcium 7.3 L (8.4-10.2) mg/dL Magnesium 1.2 L (1.6-2.3) mg/dL AST 65 H (14-36) U/L Troponin I (0.000-0.034) ng/mL Total Protein 5.8 L (6.3-8.2) g/dL Albumin 2.7 L (3.5-5.0) g/dL 03/28/19 03/28/19 Range/Units 11:12 17:16 WBC (3.8-10.6) k/uL Hgb (11.4-16.0) gm/dL Hct (34.0-46.0) % RDW (11.5-15.5) % Neutrophils # (Manual) (1.3-7.7) k/uL Lymphocytes # (Manual) (1.0-4.8) k/uL Metamyelocytes # (Man) (0) k/uL ABG pH (7.35-7.45) ABG pCO2 (35-45) mmHg ABG pO2 (83-108) mmHg ABG Total CO2 (19-24) mmol/L ABG O2 Saturation (94-97) % VBG HCO3 (24-28) mmol/L Potassium (3.5-5.1) mmol/L Chloride (98-107) mmol/L Glucose (74-99) mg/dL POC Glucose (mg/dL) 202 H 177 H (75-99) mg/dL Calcium (8.4-10.2) mg/dL Magnesium (1.6-2.3) mg/dL AST (14-36) U/L Troponin I (0.000-0.034) ng/mL Total Protein (6.3-8.2) g/dL Albumin (3.5-5.0) g/dL Microbiology - Last 24 Hours (Table) 03/28/19 01:15 Gram Stain - Preliminary Sputum Sputum Culture - Preliminary 03/27/19 16:22 Blood Culture Gram Stain - Preliminary Blood Blood Culture - Preliminary Proteus spec 03/27/19 22:24 Urine Culture - Preliminary Urine,Ureter 03/27/19 16:22 Blood Culture - Final Blood 03/27/19 16:22 Urine Culture - Preliminary Urine,Catheterized Thrombosis Risk Factor Assmnt - Choose All That Apply Each Factor Represents 1 point: Medical pt on bed rest, Sepsis (< 1month) Each Risk Factor Represents 2 Points: Age 61-74 years, Central venous access, Patient confined to bed Thrombosis Risk Factor Assessment Total Risk Factor Score: 8 Thrombosis Risk Factor Assessment Level: High Risk Assessment and Plan Assessment: ASSESSMENT Acute hypoxic respiratory failure Septic shock - gram-negative sepsis - secondary to UTI Complicated urinary tract infection - right renal calculi causing obstruction Spiculated left hilar nodule - finding on the CAT scan of the chest Hypertension Dementia COPD Coronary artery disease Dyslipidemia PLAN: Patient is on mechanical ventilation. Continue with pressor support to hold them map above 65. She is on cefepime for her gram-negative sepsis secondary to her UTI. Patient had cystoscopy and removal of the right renal calculi and had ureteral stent placement. Blood cultures and urine cultures will be followed. Patient has history of coronary artery disease and was evaluated for CABG but was deemed to be a poor candidate for so being managed medically. Overall prognosis is poor. Urology and Data [employer] Operator following the patient. Further recommendations depending on the progress of the patient.
[2019-03-28 23:30] LABS: Glucose,Whole Blood 205 mg/dL (75-99)
[2019-03-29] MEDS: NOREPINEPHRINE 8 MG in SODIUM CHLORIDE 0.9% 250 ML IV SCH ×4 (00:14→17:26)
[2019-03-29] MEDS: HEPARIN SODIUM,PORCINE 5,000 UNIT/ML 1 ML VIAL SQ SCH ×3 (00:17→14:54)
[2019-03-29] MEDS: INSULIN ASPART (NovoLOG) 100 UNIT/ML VIAL SQ SCH ×4 (00:22→18:07)
[2019-03-29] MEDS: PROPOFOL 1,000 MG in EMPTY BAG 1 BAG IV SCH ×6 (02:37→20:06)
[2019-03-29 04:28] LABS: ABG Base Excess -0.9 mmol/L; ABG HCO3 25 mmol/L (21-25); ABG Oxygen Saturation 97.7 % (94-97); ABG PCO2 47 mmHg (35-45); ABG PH 7.33 (7.35-7.45); ABG PO2 109 mmHg (83-108); ABG TCO2 26 mmol/L (19-24); Allen Test Performed? Yes
[2019-03-29 05:25] LABS: Anisocytosis Slight; Basophils # (A) 0.1 k/uL (0-0.2); Basophils % (A) 1 %; Eosinophils # (A) 0.3 k/uL (0-0.7); Eosinophils % (A) 2 %; HCT 32.2 % (34.0-46.0); HGB 10.5 gm/dL (11.4-16.0); Hypochromasia Moderate; Lymphocytes # (A) 0.6 k/uL (1.0-4.8); Lymphocytes % (A) 5 %; MCH 27.5 pg (25.0-35.0); MCHC 32.5 g/dL (31.0-37.0); MCV 84.5 fL (80.0-100.0); Mean Platelet Volume 7.5; Monocytes # (A) 0.3 k/uL (0-1.0); Monocytes % (A) 2 %; Neutrophils # (A) 11.1 k/uL (1.3-7.7); Neutrophils % (A) 89 %; Platelet Count 183 k/uL (150-450); RBC 3.81 m/uL (3.80-5.40); RDW 16.8 % (11.5-15.5); WBC 12.5 k/uL (3.8-10.6)
[2019-03-29 05:26] LABS: African American GFR (CKD) >90 (>60 ml/min/1.73 sqM); Anion Gap 7 mmol/L; Blood Urea Nitrogen 12 mg/dL (7-17); Calcium 7.6 mg/dL (8.4-10.2); Carbon Dioxide 25 mmol/L (22-30); Chloride 111 mmol/L (98-107); Glucose 211 mg/dL (74-99); Magnesium 1.7 mg/dL (1.6-2.3); Potassium 3.1 mmol/L (3.5-5.1); Sodium 143 mmol/L (137-145)
[2019-03-29 05:34] LABS: Glucose,Whole Blood 228 mg/dL (75-99)
[2019-03-29] MEDS ORDERED: Magnesium Replacement Protocol 1 EACH MISC MISCELLANE PRN (05:40)
[2019-03-29] MEDS ORDERED: Potassium Replacement Protocol 1 EACH MISC MISCELLANE PRN (05:40)
[2019-03-29] MEDS: VANCOMYCIN 1,250 MG in SODIUM CHLORIDE 0.9% 250 ML IVPB SCH (06:22)
[2019-03-29] MEDS: MAGNESIUM SULFATE-D5W PMX 1 GM in DEXTROSE/WATER 1 100ML.BAG IVPB SCH ×2 (06:23→07:51)
[2019-03-29] MEDS: POTASSIUM BICARBONATE/CIT AC 20 MEQ TABLET.EFF NG-TUBE SCH ×4 (06:23→14:44)
[2019-03-29] MEDS: IPRATROPIUM-ALBUTEROL 3 ML NEB INHALATION PRN ×2 (07:06→10:47)
--- NOTE | 2019-03-29 07:38 | XR ---
EXAMINATION TYPE: XR chest 1V DATE OF EXAM: 03/29/2019 COMPARISON: 03/28/2019 HISTORY: Pneumonia TECHNIQUE: Single frontal view of the chest is obtained. FINDINGS: Right hemidiaphragm elevation is seen with a new trace right pleural effusion. Enteric tub e and endotracheal tube are satisfactorily placed. Patient is rotated shifting the mediastinum slight ly to the left, previously to the right. No pneumothorax is appreciated. Reticular opacities are seen at the lung bases emanating from the wanda. Underlying COPD is present as there is biapical lucency. Diffuse osseous demineralization is present. Cardiomediastinal silhouette is stable but mildly enlarg ed. IMPRESSION: Bibasilar opacities may represent multifocal pneumonia or less likely atelectasis. New t race right pleural effusion is present.
[2019-03-29] MEDS: CEFEPIME 2 GM in SODIUM CHLORIDE 0.9% 100 ML IVPB SCH ×2 (07:48→14:53)
[2019-03-29] MEDS: PANTOPRAZOLE 40 MG/10 ML VIAL IVP SCH (07:50)
[2019-03-29] MEDS: CHLORHEXIDINE GLUCONATE 15 ML CUP MUCOUS MEM SCH ×2 (07:50→20:56)
--- NOTE | 2019-03-29 08:17 | P.PN ---
Progress Note - Text Progress Note Date: 03/29/19 Mrs. Morfin remains intubated, as attempts to extubate have been unsuccessful. Her renal function is normal, and the Stapleton catheter continues to drain well. Will continue IV antibiotics, pending the final culture results.
[2019-03-29] MEDS ORDERED: HYDROmorphone 0.5 MG/0.5 ML SYRINGE IVP STA (08:27)
--- NOTE | 2019-03-29 09:50 | PN ---
PROGRESS NOTE DATE OF SERVICE: 03/29/2019. PULMONARY/CRITICAL CARE PROGRESS NOTE: Critical care time is 35 minutes. This is a 69-year-old female who was admitted on March 27 for urosepsis, pyelonephritis and kidney stones. She went from the emergency room to the operating room and then into the ICU. She apparently had a cystoscopy performed by Dr. Gaona and a 5 mm right ureter stone was removed. The patient was admitted with a diagnosis of acute hypoxemic respiratory failure secondary to gram-negative sepsis and septic shock. In addition to the cystoscopy, for hydronephrosis and ureterolithiasis, she had a stent placement as well. The patient also apparently has a spiculated left hilar nodule which will eventually need outpatient evaluation. Other medical problems included dementia, hypertension, DJD, CAD, hyperlipidemia, and previous evaluation for CABG, although the patient was considered to be a poor candidate for myocardial revascularization. Currently, the patient remains on the volume assist-control mode. Rate is 18, tidal volume 450, FiO2 of 45%, PEEP of 5. Blood gases show PO2 of 109, pCO2 of 47, and pH of 7.33. The vent was changed a bit. The rate was increased to 28, tidal volume is dropped from 453 to 350 and the FiO2 was dropped from 45% to 40%. The patient remains on norepinephrine at 23 mcg/minute, propofol at 75 mcg/kg per minute, 0.9 at 20 mL an hour and Vital at 30 with a goal of 45 mL/hour. Apparently, the patient becomes very agitated when her propofol is reduced. Likewise, when the Levophed runs out, she becomes hypotensive. The patient apparently is a DNR according to family. She would not apparently benefit according to them to CPR. If extubated, she was not to be reintubated. Her gram-negative sepsis reveals evidence of gram-negative bacilli in the urine and Proteus species in the blood from 03/27. Current vital signs are reviewed. Temperature is 98.5, heart rate 80, respiratory rate 28, blood pressure 103/53, mean is 70, saturations are 90% on 40% and 5 of PEEP. Appears in no acute distress. Currently sedated. HEENT: Examination is grossly unremarkable. There is no orally placed endotracheal tube and NG tube. NECK: Supple. Full range of motion. No adenopathy. CARDIOVASCULAR: Examination reveals regular rhythm and rate. Heart rate 80. S1, S2. No murmur. LUNGS: Reveal coarse rhonchi. Breath sounds are diminished. No crackles. No wheezes. ABDOMEN: Soft. Bowel sounds are heard. EXTREMITIES: Intact. Minimal edema. SKIN: Without rash. NEUROLOGIC: Examination is difficult to assess because the patient is sedated. Microbiology as mentioned before shows gram-negative bacilli in the urine from March 27 and Proteus species in the blood from the same day. CHEST X-RAY: Done today shows some bibasilar infiltrates, right greater than left. There is probable is a small effusions, right greater than left. The rest of the chest x-ray looks pretty reasonable. Tubes and lines seem to be in good position. LAB DATA: Reviewed. White count 12.5, hemoglobin 10.5, hematocrit 32.2, platelet count 183,000, sodium 143, potassium 3.1, chloride 111, CO2 is 25, anion gap is 7. BUN and creatinine were 12 and 0.39. Medications are reviewed. Problem list and labs and x-rays are all reviewed. ASSESSMENT: 1. Acute hypoxemic respiratory failure secondary to gram-negative sepsis, presumably secondary to Proteus and septic shock. 2. Acute urinary tract infection with hydronephrosis secondary to ureterolithiasis, status post cystoscopy and stent placement. 3. Acute gram-negative bacteremia. 4. Mild interstitial edema and possible mild acute respiratory distress syndrome. 5. Spiculated left hilar nodule. 6. History of dementia. 7. History of hypertension. 8. Degenerative joint disease. 9. Coronary artery disease. 10.Hyperlipidemia. PLAN: The patient remains on norepinephrine at 23 mcg/minute. She also remains on propofol at 75 mcg/kg per minute. Will attempt to wean her propofol a bit. The vent was changed to a rate of 28, tidal volume 350, FiO2 40%. Medications are reviewed. Problem list reviewed. Additional recommendations and suggestions are forthcoming. Prognosis is guarded. She does not appear to be a very healthy individual. Unnecessary medications will be discontinued. CRITICAL CARE TIME: 35 minutes. NIKI / PRABHAKAR: [id number] /
[2019-03-29 11:26] LABS: Glucose,Whole Blood 152 mg/dL (75-99)
[2019-03-29 18:04] LABS: Glucose,Whole Blood 224 mg/dL (75-99)
[2019-03-29] MEDS: MORPHINE SULFATE 2 MG/ML SYRINGE IV PRN (18:08)
--- NOTE | 2019-03-29 18:11 | P.PN ---
Subjective Mr. Patiño is a 69-year-old female with a past medical history of dementia, coronary artery disease, COPD, hypertension brought in via EMS for having a fall at home while trying to get up from the commode. Patient is intubated and in the ICU currently. So most of the history is obtained from the ED notes and nursing staff report. The patient has been weak and was not herself for the past 3 days, family thought that this was because of her dementia. But she became gradually weaker to the extent that she had a fall while trying to get up from the commode. Family reported that she has been having increased frequency of urination and also strong odor to the urine. At the time of admission patient was suppressed hypoxic and hypotensive. Patient was given 2 L of IV normal saline bolus and started on maintenance fluids. She also received a dose of vancomycin and cefepime empirically. Urine analysis was positive for large leukocyte esterase. CAT scan of the abdomen and pelvis was showing right-sided hydronephrosis and the distal 5 mm ureteral calculus. Urology Dr. Salgado was consulted. Last night patient had removal of the stone and a ureteral stent was placed. Patient's blood cultures were positive for Proteus. So vancomycin has been discontinued and cefepime is continued. Patient has history of COPD, so after the procedure the patient could not be extubated. 03/29/2019 pt is 69 yo F with pmh of HTN, HLP, Dementia, Coronary art disease found poor candidate for revascularization procedure, who presents with progressive weakness over 3 days and fall , pt remains intubated and sedated in ICU for septic shock , hydronephrosis with 5 mm kid stone s/p surgical removal and stent placement , she is been followed closely by critical care team , and urology . labs showing improving leukocytosis 20 down to 12.5 K , rest of cbc is stable, sugar controlled. UC: gram negative bacilli. pt is DNR. home medication were reconciled and adjusted per family who considered transferring pt. replace asa ,and plavix if ok with surgery for her h/o cad. Objective - Vital Signs Vital signs: Vital Signs Temp 98.8 F 03/29/19 16:00 Pulse 82 03/29/19 17:00 Resp 28 H 03/29/19 17:00 BP 130/81 03/29/19 17:00 Pulse Ox 93 L 03/29/19 17:00 Intake & Output 03/28/19 03/29/19 03/29/19 18:59 06:59 18:59 Intake Total 9939.455 1939.161 2068.626 Output Total 1035 855 675 Balance -8.944 888.187 1117.626 Weight 58.8 kg 58.2 kg Intake: IV 375 610 860 Cefepime 2 gm In Sodium 100 200 Chloride 0.9% 100 ml @ 200 mls/hr IVPB Q8HR [facility] Rx#:[id number] Magnesium Sulfate-D5w Pmx 100 1 gm In Dextrose/Water 1 100ml.bag @ 100 mls/hr IVPB Q1H [facility] Rx#: [id number] Pressure bag 30 Sodium Chloride 0.9% 1, 250 260 280 000 ml @ 20 mls/hr IV . Q24H [facility] Rx#:[id number] Vancomycin 1,250 mg In 125 250 250 Sodium Chloride 0.9% 250 ml @ 125 mls/hr IVPB Q12H [facility] Rx#:[id number] Intake, IV Titration 501.056 577.161 668.626 Amount Norepinephrine 8 mg In 401.056 388.873 425.224 Sodium Chloride 0.9% 250 ml @ 0.05 MCG/KG/MIN 5. 689 mls/hr IV .Q24H [facility] Rx#:[id number] Propofol 1,000 mg In 100 188.288 243.402 Empty Bag 1 bag @ Titrate IV .Q0M [facility] Rx#: [id number] Tube Feeding 120 60 450 Other 30 90 Output: Urine 1035 855 675 Uretheral ([place]) 130 Other: Voiding Method Indwelling Catheter Indwelling Catheter Indwelling Catheter # Bowel Movements 1 ABP, PAP, CO, CI - Last Documented Arterial Blood Pressure 154/70 - Exam -GEN. APPEARANCE: Patient is mechanically ventilated and sedated HEAD EXAM: atraumatic, normocephalic, normal inspection. -ENT EXAM: OG-tube in place -RESPIRATORY EXAM: Coarse breath sounds positive with crackles. No wheezes CARDIOVASCULAR EXAM: S1-S2 heard no additional sounds GI/ABDOMINAL EXAM: soft, normal bowel sounds. EXTREMITIES EXAM: No pedal edema. BACK EXAM: normal inspection -NEUROLOGICAL EXAM: sedated SKIN EXAM: warm, dry, intact, normal color. Absent: rash - Labs CBC & Chem 7: 03/29/19 04:40 03/29/19 11:14 Labs: Abnormal Lab Results - Last 24 Hours (Table) 03/28/19 03/29/19 03/29/19 Range/Units 23:29 04:25 04:40 WBC (3.8-10.6) k/uL Hgb (11.4-16.0) gm/dL Hct (34.0-46.0) % RDW (11.5-15.5) % Neutrophils # (1.3-7.7) k/uL Lymphocytes # (1.0-4.8) k/uL ABG pH 7.33 L (7.35-7.45) ABG pCO2 47 H (35-45) mmHg ABG pO2 109 H (83-108) mmHg ABG Total CO2 26 H (19-24) mmol/L ABG O2 Saturation 97.7 H (94-97) % Potassium 3.1 L (3.5-5.1) mmol/L Chloride 111 H (98-107) mmol/L Creatinine 0.39 L (0.52-1.04) mg/dL Glucose 211 H (74-99) mg/dL POC Glucose (mg/dL) 205 H (75-99) mg/dL Calcium 7.6 L (8.4-10.2) mg/dL 03/29/19 03/29/19 03/29/19 Range/Units 04:40 05:33 11:13 WBC 12.5 H (3.8-10.6) k/uL Hgb 10.5 L (11.4-16.0) gm/dL Hct 32.2 L (34.0-46.0) % RDW 16.8 H (11.5-15.5) % Neutrophils # 11.1 H (1.3-7.7) k/uL Lymphocytes # 0.6 L (1.0-4.8) k/uL ABG pH (7.35-7.45) ABG pCO2 (35-45) mmHg ABG pO2 (83-108) mmHg ABG Total CO2 (19-24) mmol/L ABG O2 Saturation (94-97) % Potassium (3.5-5.1) mmol/L Chloride (98-107) mmol/L Creatinine (0.52-1.04) mg/dL Glucose (74-99) mg/dL POC Glucose (mg/dL) 228 H 152 H (75-99) mg/dL Calcium (8.4-10.2) mg/dL 03/29/19 Range/Units 11:14 WBC (3.8-10.6) k/uL Hgb (11.4-16.0) gm/dL Hct (34.0-46.0) % RDW (11.5-15.5) % Neutrophils # (1.3-7.7) k/uL Lymphocytes # (1.0-4.8) k/uL ABG pH (7.35-7.45) ABG pCO2 (35-45) mmHg ABG pO2 (83-108) mmHg ABG Total CO2 (19-24) mmol/L ABG O2 Saturation (94-97) % Potassium 3.4 L (3.5-5.1) mmol/L Chloride (98-107) mmol/L Creatinine (0.52-1.04) mg/dL Glucose (74-99) mg/dL POC Glucose (mg/dL) (75-99) mg/dL Calcium (8.4-10.2) mg/dL Microbiology - Last 24 Hours (Table) 03/27/19 22:24 Urine Culture - Preliminary Urine,Ureter Gram Neg Bacilli 03/27/19 16:22 Blood Culture Gram Stain - Preliminary Blood Blood Culture - Preliminary Proteus spec 03/27/19 16:22 Urine Culture - Preliminary Urine,Catheterized Gram Neg Bacilli Assessment and Plan Assessment: Septic shock - gram-negative sepsis - secondary to UTI Acute hypoxic respiratory failure Complicated urinary tract infection - right renal calculi causing obstruction hydronephrosis. Spiculated left hilar nodule - finding on the CAT scan of the chest Hypertension Dementia COPD Coronary artery disease Dyslipidemia Plan: Patient is on mechanical ventilation. Continue with pressor support to hold them map above 65. She is on cefepime for her gram-negative sepsis secondary to her UTI. Patient had cystoscopy and removal of the right renal calculi and had ureteral stent placement. Blood cultures and urine cultures will be followed. continue with current antibiotic. Patient has history of coronary artery disease and was evaluated for CABG but was deemed to be a poor candidate for so being managed medically. Overall prognosis is poor. Urology and Roll Scale Worker following the patient. Further recommendations depending on the progress of the patient.
[2019-03-29] MEDS: ASPIRIN 325 MG TAB OG-TUBE SCH (18:58)
[2019-03-29] MEDS: CLOPIDOGREL 75 MG TAB OG-TUBE SCH (18:58)
[2019-03-29] MEDS: DONEPEZIL 10 MG TAB OG-TUBE SCH (20:04)
[2019-03-29] MEDS: ATORVASTATIN 80 MG TAB OG-TUBE SCH (20:56)
[2019-03-29 23:49] LABS: Glucose,Whole Blood 200 mg/dL (75-99)
[2019-03-30] MEDS: CEFEPIME 2 GM in SODIUM CHLORIDE 0.9% 100 ML IVPB SCH ×4 (00:44→22:35)
[2019-03-30] MEDS: HEPARIN SODIUM,PORCINE 5,000 UNIT/ML 1 ML VIAL SQ SCH ×4 (00:45→22:35)
[2019-03-30] MEDS: INSULIN ASPART (NovoLOG) 100 UNIT/ML VIAL SQ SCH ×5 (00:45→22:38)
[2019-03-30] MEDS: SODIUM CHLORIDE 0.9% 1,000 ML IV SCH (00:52)
[2019-03-30] MEDS: MORPHINE SULFATE 2 MG/ML SYRINGE IV PRN ×6 (03:26→22:47)
[2019-03-30] MEDS: PROPOFOL 1,000 MG in EMPTY BAG 1 BAG IV SCH ×6 (03:31→20:50)
[2019-03-30] MEDS: NOREPINEPHRINE 8 MG in SODIUM CHLORIDE 0.9% 250 ML IV SCH ×2 (03:34→18:14)
[2019-03-30 04:22] LABS: ABG Base Excess 4.2 mmol/L; ABG HCO3 30 mmol/L (21-25); ABG Oxygen Saturation 95.5 % (94-97); ABG PCO2 53 mmHg (35-45); ABG PH 7.36 (7.35-7.45); ABG PO2 79 mmHg (83-108); ABG TCO2 31 mmol/L (19-24); Allen Test Performed? Yes
[2019-03-30 05:03] LABS: Anisocytosis Slight; Basophils % (A) 0 %; Eosinophils # (A) 0.3 k/uL (0-0.7); Eosinophils % (A) 3 %; HCT 31.3 % (34.0-46.0); HGB 9.9 gm/dL (11.4-16.0); Hypochromasia Slight; Lymphocytes # (A) 0.7 k/uL (1.0-4.8); Lymphocytes % (A) 8 %; MCH 26.7 pg (25.0-35.0); MCHC 31.6 g/dL (31.0-37.0); MCV 84.7 fL (80.0-100.0); Mean Platelet Volume 7.1; Monocytes # (A) 0.2 k/uL (0-1.0); Monocytes % (A) 2 %; Neutrophils # (A) 7.8 k/uL (1.3-7.7); Neutrophils % (A) 86 %; Platelet Count 155 k/uL (150-450); WBC 9.2 k/uL (3.8-10.6)
[2019-03-30 05:13] LABS: African American GFR (CKD) >90 (>60 ml/min/1.73 sqM); Anion Gap 4 mmol/L; Blood Urea Nitrogen 9 mg/dL (7-17); Calcium 7.8 mg/dL (8.4-10.2); Carbon Dioxide 30 mmol/L (22-30); Chloride 108 mmol/L (98-107); Glucose 127 mg/dL (74-99); Magnesium 1.5 mg/dL (1.6-2.3); Potassium 3.2 mmol/L (3.5-5.1); Sodium 142 mmol/L (137-145)
[2019-03-30 05:27] LABS: Glucose,Whole Blood 121 mg/dL (75-99)
[2019-03-30 06:07] LABS: Ovalocytes Present
[2019-03-30] MEDS ORDERED: Magnesium Replacement Protocol 1 EACH MISC MISCELLANE PRN (06:10)
[2019-03-30] MEDS ORDERED: Potassium Replacement Protocol 1 EACH MISC MISCELLANE PRN (06:10)
[2019-03-30] MEDS: MAGNESIUM SULFATE-D5W PMX 1 GM in DEXTROSE/WATER 1 100ML.BAG IVPB SCH ×4 (07:14→22:03)
[2019-03-30] MEDS: POTASSIUM BICARBONATE/CIT AC 20 MEQ TABLET.EFF NG-TUBE SCH ×4 (07:15→17:11)
[2019-03-30] MEDS: IPRATROPIUM-ALBUTEROL 3 ML NEB INHALATION PRN (07:16)
[2019-03-30] MEDS: DONEPEZIL 10 MG TAB OG-TUBE SCH (08:20)
[2019-03-30] MEDS: ASPIRIN 325 MG TAB OG-TUBE SCH (08:20)
[2019-03-30] MEDS: CLOPIDOGREL 75 MG TAB OG-TUBE SCH (08:20)
[2019-03-30] MEDS: CHLORHEXIDINE GLUCONATE 15 ML CUP MUCOUS MEM SCH ×2 (08:20→20:50)
[2019-03-30] MEDS: PANTOPRAZOLE 40 MG/10 ML VIAL IVP SCH (08:20)
[2019-03-30] MEDS: IPRATROPIUM-ALBUTEROL 3 ML NEB INHALATION SCH ×5 (09:07→23:02)
--- NOTE | 2019-03-30 09:20 | PN ---
PROGRESS NOTE PULMONARY/CRITICAL CARE PROGRESS NOTE: DATE OF SERVICE: 03/30/2019 CRITICAL CARE TIME: 35 minutes. This is a 69-year-old female who was admitted back on March 27 for urosepsis and pyelonephritis and nephrolithiasis. She apparently went from the emergency room to the operating room and then the ICU. She had a cystoscopy performed by Dr. Gaona and a 5 mm right ureter stone was removed. The patient was admitted with a diagnosis of acute hypoxemic respiratory failure secondary to gram-negative sepsis and septic shock. In addition to the cystoscopy for hydronephrosis and ureterolithiasis, she had a stent placement as well. She also has a history of a spiculated left hilar nodule which would eventually need to be evaluated in the outpatient setting. Other medical problems include dementia, which is chronic and long-term, hypertension, DJD, CAD, hyperlipidemia, and previous evaluation for CABG, although she was thought to be a poor candidate. Currently, the patient remains on the volume assist-control mode rate of 28, tidal volume 350, FiO2 of 40%, PEEP of 5. Blood gases are reasonable with a pO2 of 79, pCO2 of 36, pH 7.36. She is currently on Diprivan at 75 mcg/kg per minute, Levophed at 16.5 mcg/minute, Vital 1.2 at 45 with a goal of 45 and 0.9 at 20 mL an hour. We did do a daily interruption of sedation today. She became extremely agitated and a respiratory rate went up to 50. She was opening eyes but not following any commands. She also appeared to be diaphoretic, hypertensive and tachycardic. She was re-sedated. I did have a long conversation with the daughter yesterday. I think the daughter is somewhat unrealistic as to the likelihood of this patient recovering. I think she will need long-term mechanical ventilation and eventually a tracheostomy and PEG tube. The patient is apparently a DNR according to the family, but I did talk about comfort measures. They are not ready as yet to make those decisions. The daughter was going to gather together with other family members and discuss it. She, the daughter, does not believe that the mother would want to be on life support. PHYSICAL EXAMINATION: VITAL SIGNS: Current vital signs are reviewed. Temperature is 98.8, heart rate 86, respiratory rate 29, blood pressure 103/72 with mean 82, saturations are 93% on 40% and 5 of PEEP. Appears in no acute distress, currently re-sedated. HEENT: Examination is grossly unremarkable. There is an orally placed endotracheal tube and NG tube. NECK: Supple. Full range of motion. No adenopathy, thyromegaly or neck vein distention. CARDIOVASCULAR: Examination reveals regular rhythm and rate. Heart rate in mid 70s. S1, S2 normal. Heart sounds are somewhat distant. LUNGS: Reveal mostly clear breath sounds. A few scattered rhonchi. No wheezes or crackles. ABDOMEN: Soft. Bowel sounds are heard. EXTREMITIES: Are intact without cyanosis, clubbing, or significant edema. SKIN: Without rash. NEUROLOGIC: Examination is difficult to assess because she is currently sedated. When sedation was held, the patient did open her eyes, but did not follow any commands. She was breathing over the ventilator. She became very agitated with the respiratory rate near 50. LABORATORY DATA: Laboratory data includes a white count 9.2, hemoglobin 9.9, hematocrit 31.3, platelet count 155,000. Sodium 142, potassium 3.2, chloride 108, CO2 of 30, anion gap 4. BUN and creatinine were 9 and 0.33. Microbiology is showing positive urine and blood cultures for Proteus mirabilis. It is sensitive to just about everything. The chest x-ray from today shows a well placed endotracheal tube. There is bibasilar airspace disease or atelectasis. There may be small effusions. MEDICATIONS: Medications are reviewed. They appear appropriate. In terms of antibiotics she is on Maxipime/cefepime. ASSESSMENT: 1. Acute hypoxemic respiratory failure secondary to gram-negative sepsis secondary to Proteus mirabilis, with associated septic shock, requiring intubation and mechanical ventilation on the day of her admission which was March 27. 2. Acute urinary tract infection with hydronephrosis secondary to ureterolithiasis, status post cystoscopy, stent placement and right sided stone removed. 3. Acute gram-negative bacteremia. 4. Mild interstitial edema. 5. Spiculated left hilar nodule. 6. History of dementia, chronic. 7. History of hypertension. 8. Degenerative joint disease. 9. Coronary artery disease. 10.Hyperlipidemia. PLAN: I did have a long conversation with the family yesterday. They understand I think now that this patient is in bad shape. Overall health is poor. She is suffering from gram- negative bacteremia and urinary tract infection secondary to Proteus mirabilis. She is on appropriate antibiotics. We did do a daily interruption of sedation, unfortunately she failed. She became very agitated. She opened her eyes without following any commands. Her respiratory rate went up to 50. Her heart rate went up above 120 and her blood pressure became about 180 systolic. She appeared diaphoretic. She was re-sedated. She continues on nutrition. Additional recommendations and suggestions are forthcoming. Her norepinephrine is a 16.5 mcg/minute. Prognosis is poor. CRITICAL CARE TIME: 35 minutes. MMODL / IJN: [id number] / DILIP
--- NOTE | 2019-03-30 11:27 | P.PN ---
Subjective Mr. Patiño is a 69-year-old female with a past medical history of dementia, coronary artery disease, COPD, hypertension brought in via EMS for having a fall at home while trying to get up from the commode. Patient is intubated and in the ICU currently. So most of the history is obtained from the ED notes and nursing staff report. The patient has been weak and was not herself for the past 3 days, family thought that this was because of her dementia. But she became gradually weaker to the extent that she had a fall while trying to get up from the commode. Family reported that she has been having increased frequency of urination and also strong odor to the urine. At the time of admission patient was suppressed hypoxic and hypotensive. Patient was given 2 L of IV normal saline bolus and started on maintenance fluids. She also received a dose of vancomycin and cefepime empirically. Urine analysis was positive for large leukocyte esterase. CAT scan of the abdomen and pelvis was showing right-sided hydronephrosis and the distal 5 mm ureteral calculus. Urology Dr. Salgado was consulted. Last night patient had removal of the stone and a ureteral stent was placed. Patient's blood cultures were positive for Proteus. So vancomycin has been discontinued and cefepime is continued. Patient has history of COPD, so after the procedure the patient could not be extubated. 03/29/2019 pt is 69 yo F with pmh of HTN, HLP, Dementia, Coronary art disease found poor candidate for revascularization procedure, who presents with progressive weakness over 3 days and fall , pt remains intubated and sedated in ICU for septic shock , hydronephrosis with 5 mm kid stone s/p surgical removal and stent placement , she is been followed closely by critical care team , and urology . labs showing improving leukocytosis 20 down to 12.5 K , rest of cbc is stable, sugar controlled. UC: gram negative bacilli. pt is DNR. home medication were reconciled and adjusted per family who considered transferring pt. replace asa ,and plavix if ok with surgery team for her h/o cad. 03/30/2019 Patient remains in the ICU sedated and intubated. Patient felt a sedation holiday today as she got agitated breathing very fast and 50s. Patient placed back to sedation With propofol. Patient remains on cefepime for her UTI and sepsis. Her urine cultures came back positive for Proteus. Blood pressure 110/57. Labs are noted, electrolytes replaced. Aspirin and Plavix were restarted. Patient is on Aricept. Repeat EKG showing normal sinus rhythm at 85 with QTC not prolonged at 392 Objective - Vital Signs Vital signs: Vital Signs Temp 98.8 F 03/30/19 07:00 Pulse 82 03/30/19 11:00 Resp 28 H 03/30/19 11:00 BP 115/72 03/30/19 11:00 Pulse Ox 90 L 03/30/19 11:00 Intake & Output 03/29/19 03/30/19 03/30/19 18:59 06:59 18:59 Intake Total 2091.821 1128.334 334.684 Output Total 750 660 275 Balance 1341.821 468.334 59.684 Weight 60.1 kg Intake: IV 893 286 315 Cefepime 2 gm In Sodium 200 Chloride 0.9% 100 ml @ 200 mls/hr IVPB Q8HR [facility] Rx#:[id number] Magnesium Sulfate-D5w Pmx 100 1 gm In Dextrose/Water 1 100ml.bag @ 100 mls/hr IVPB Q1H [facility] Rx#: [id number] Magnesium Sulfate-D5w Pmx 200 1 gm In Dextrose/Water 1 100ml.bag @ 100 mls/hr IVPB Q1H [facility] Rx#: [id number] Pressure bag 33 36 15 Sodium Chloride 0.9% 1, 310 250 100 000 ml @ 20 mls/hr IV . Q24H [facility] Rx#:[id number] Vancomycin 1,250 mg In 250 Sodium Chloride 0.9% 250 ml @ 125 mls/hr IVPB Q12H [facility] Rx#:[id number] Intake, IV Titration 703.821 707.334 19.684 Amount Norepinephrine 8 mg In 460.419 334.916 Sodium Chloride 0.9% 250 ml @ 0.05 MCG/KG/MIN 5. 689 mls/hr IV .Q24H [facility] Rx#:[id number] Propofol 1,000 mg In 243.402 372.418 19.684 Empty Bag 1 bag @ Titrate IV .Q0M [facility] Rx#: [id number] Tube Feeding 405 135 Other 90 Output: Urine 750 660 275 Other: Voiding Method Indwelling Catheter Indwelling Catheter ABP, PAP, CO, CI - Last Documented Arterial Blood Pressure 110/57 - Exam -GEN. APPEARANCE: Patient is mechanically ventilated and sedated HEAD EXAM: atraumatic, normocephalic, normal inspection. -ENT EXAM: OG-tube in place -RESPIRATORY EXAM: Coarse breath sounds positive with crackles. No wheezes CARDIOVASCULAR EXAM: S1-S2 heard no additional sounds GI/ABDOMINAL EXAM: soft, normal bowel sounds. EXTREMITIES EXAM: No pedal edema. BACK EXAM: normal inspection -NEUROLOGICAL EXAM: sedated SKIN EXAM: warm, dry, intact, normal color. Absent: rash - Labs CBC & Chem 7: 03/30/19 04:40 03/30/19 04:40 Labs: Abnormal Lab Results - Last 24 Hours (Table) 03/29/19 03/29/19 03/29/19 Range/Units 11:13 11:14 18:01 RBC (3.80-5.40) m/uL Hgb (11.4-16.0) gm/dL Hct (34.0-46.0) % RDW (11.5-15.5) % Neutrophils # (1.3-7.7) k/uL Lymphocytes # (1.0-4.8) k/uL ABG pCO2 (35-45) mmHg ABG pO2 (83-108) mmHg ABG HCO3 (21-25) mmol/L ABG Total CO2 (19-24) mmol/L Potassium 3.4 L (3.5-5.1) mmol/L Chloride (98-107) mmol/L Creatinine (0.52-1.04) mg/dL Glucose (74-99) mg/dL POC Glucose (mg/dL) 152 H 224 H (75-99) mg/dL Calcium (8.4-10.2) mg/dL Magnesium (1.6-2.3) mg/dL 03/29/19 03/30/19 03/30/19 Range/Units 23:47 04:20 04:40 RBC (3.80-5.40) m/uL Hgb (11.4-16.0) gm/dL Hct (34.0-46.0) % RDW (11.5-15.5) % Neutrophils # (1.3-7.7) k/uL Lymphocytes # (1.0-4.8) k/uL ABG pCO2 53 H (35-45) mmHg ABG pO2 79 L (83-108) mmHg ABG HCO3 30 H (21-25) mmol/L ABG Total CO2 31 H (19-24) mmol/L Potassium 3.2 L (3.5-5.1) mmol/L Chloride 108 H (98-107) mmol/L Creatinine 0.33 L (0.52-1.04) mg/dL Glucose 127 H (74-99) mg/dL POC Glucose (mg/dL) 200 H (75-99) mg/dL Calcium 7.8 L (8.4-10.2) mg/dL Magnesium 1.5 L (1.6-2.3) mg/dL 03/30/19 03/30/19 Range/Units 04:40 05:26 RBC 3.70 L (3.80-5.40) m/uL Hgb 9.9 L (11.4-16.0) gm/dL Hct 31.3 L (34.0-46.0) % RDW 17.0 H (11.5-15.5) % Neutrophils # 7.8 H (1.3-7.7) k/uL Lymphocytes # 0.7 L (1.0-4.8) k/uL ABG pCO2 (35-45) mmHg ABG pO2 (83-108) mmHg ABG HCO3 (21-25) mmol/L ABG Total CO2 (19-24) mmol/L Potassium (3.5-5.1) mmol/L Chloride (98-107) mmol/L Creatinine (0.52-1.04) mg/dL Glucose (74-99) mg/dL POC Glucose (mg/dL) 121 H (75-99) mg/dL Calcium (8.4-10.2) mg/dL Magnesium (1.6-2.3) mg/dL Microbiology - Last 24 Hours (Table) 03/28/19 01:15 Gram Stain - Final Sputum Sputum Culture - Final Mckenzie albicans 03/27/19 22:24 Urine Culture - Final Urine,Ureter Proteus mirabilis 03/27/19 16:22 Blood Culture Gram Stain - Final Blood Blood Culture - Final Proteus mirabilis 03/27/19 16:22 Urine Culture - Final Urine,Catheterized Proteus mirabilis Assessment and Plan Assessment: Septic shock - gram-negative sepsis - secondary to UTI with Proteus Acute hypoxic respiratory failure. Status post intubated Complicated urinary tract infection - right renal calculi causing obstruction. Status post stent placement hydronephrosis. Spiculated left hilar nodule - finding on the CAT scan of the chest Hypertension Dementia COPD Coronary artery disease Dyslipidemia Plan: Patient is on mechanical ventilation. Continue with pressor support to hold them map above 65. She is on cefepime for her gram-negative sepsis secondary to her UTI with Proteus. Patient had cystoscopy and removal of the right renal calculi and had ureteral stent placement. Blood cultures and urine cultures will be followed. continue with current antibiotic. Patient has history of coronary artery disease and was evaluated for CABG but was deemed to be a poor candidate for so being managed medically. Overall prognosis is poor. Urology and Fish Hatchery Worker following the patient. Further recommendations depending on the progress of the patient.
[2019-03-30] MEDS: MEMANTINE 10 MG TAB PO SCH (12:06)
[2019-03-30 12:14] LABS: Glucose,Whole Blood 179 mg/dL (75-99)
--- NOTE | 2019-03-30 13:22 | XR ---
EXAMINATION TYPE: XR chest 1V portable DATE OF EXAM: 03/30/2019 COMPARISON: 03/29/2019 HISTORY: Pneumonia. Acute respiratory failure TECHNIQUE: Single frontal view of the chest is obtained. FINDINGS: Enteric and endotracheal tubes are satisfactorily positioned. There is similar appearance of the trace right pleural effusion and right basilar airspace disease with increasing confluence of the left basilar airspace disease. Chronic interstitial prominence is seen. No new focal consolidatio n. Cardiomediastinal silhouette is stable. Diffuse osseous demineralization is present. No sizable pn eumothorax. IMPRESSION: Similar-appearing trace right pleural effusion and right basilar airspace disease with i ncreasing confluence of the left basilar airspace disease.
[2019-03-30 17:36] LABS: Glucose,Whole Blood 158 mg/dL (75-99)
[2019-03-30 20:33] LABS: Magnesium 1.6 mg/dL (1.6-2.3); Potassium 3.9 mmol/L (3.5-5.1)
[2019-03-30] MEDS: risperiDONE 1 MG TAB PO SCH (20:50)
[2019-03-30] MEDS: ATORVASTATIN 80 MG TAB OG-TUBE SCH (20:50)
[2019-03-30] MEDS: traZODone HCL 50 MG TAB PO SCH (20:51)
[2019-03-30] MEDS ORDERED: POTASSIUM BICARBONATE/CIT AC 20 MEQ TABLET.EFF NG-TUBE SCH (21:00)
[2019-03-31] MEDS ORDERED: IPRATROPIUM-ALBUTEROL 3 ML NEB ONE ×2
[2019-03-31 03:47] LABS: Glucose,Whole Blood 163 mg/dL (75-99)
[2019-03-31 03:47] LABS: Glucose,Whole Blood 204 mg/dL (75-99)
[2019-03-31 04:43] LABS: Anisocytosis Slight; Basophils % (A) 0 %; Eosinophils # (A) 0.2 k/uL (0-0.7); Eosinophils % (A) 2 %; HCT 34.3 % (34.0-46.0); HGB 10.5 gm/dL (11.4-16.0); Hypochromasia Slight; Lymphocytes # (A) 0.5 k/uL (1.0-4.8); Lymphocytes % (A) 8 %; MCH 26.3 pg (25.0-35.0); MCHC 30.8 g/dL (31.0-37.0); MCV 85.4 fL (80.0-100.0); Mean Platelet Volume 7.4; Monocytes # (A) 0.2 k/uL (0-1.0); Monocytes % (A) 2 %; Neutrophils # (A) 6.1 k/uL (1.3-7.7); Neutrophils % (A) 86 %; Platelet Count 123 k/uL (150-450); RBC 4.01 m/uL (3.80-5.40); RDW 17.1 % (11.5-15.5); WBC 7.1 k/uL (3.8-10.6)
[2019-03-31] MEDS: IPRATROPIUM-ALBUTEROL 3 ML NEB INHALATION SCH ×6 (05:00→23:38)
[2019-03-31] MEDS: NOREPINEPHRINE 8 MG in SODIUM CHLORIDE 0.9% 250 ML IV SCH ×2 (05:02→14:15)
[2019-03-31 05:03] LABS: Magnesium 1.9 mg/dL (1.6-2.3)
[2019-03-31] MEDS: SODIUM CHLORIDE 0.9% 1,000 ML IV SCH (05:04)
[2019-03-31] MEDS: INSULIN ASPART (NovoLOG) 100 UNIT/ML VIAL SQ SCH ×4 (05:52→23:10)
[2019-03-31 05:59] LABS: Glucose,Whole Blood 196 mg/dL (75-99)
[2019-03-31 06:12] LABS: Glucose,Whole Blood 205 mg/dL (75-99)
[2019-03-31] MEDS: PROPOFOL 1,000 MG in EMPTY BAG 1 BAG IV SCH ×6 (06:34→22:43)
[2019-03-31] MEDS: MORPHINE SULFATE 2 MG/ML SYRINGE IV PRN ×3 (06:34→20:01)
[2019-03-31 06:49] LABS: African American GFR (CKD) >90 (>60 ml/min/1.73 sqM); Anion Gap 4 mmol/L; Blood Urea Nitrogen 9 mg/dL (7-17); Calcium 7.8 mg/dL (8.4-10.2); Carbon Dioxide 33 mmol/L (22-30); Chloride 104 mmol/L (98-107); Glucose 182 mg/dL (74-99); Sodium 141 mmol/L (137-145)
[2019-03-31] MEDS: MAGNESIUM SULFATE-D5W PMX 1 GM in DEXTROSE/WATER 1 100ML.BAG IVPB SCH ×2 (07:03→08:48)
--- NOTE | 2019-03-31 07:16 | XR ---
EXAMINATION TYPE: XR chest 1V portable DATE OF EXAM: 03/31/2019 Comparison: 03/30/2019 Clinical History: 69 year-old female acute renal failure Findings: ET tube is satisfactory. NG tube courses below the diaphragm. Right IJ CVC tip at the lower SVC level . Heart mildly enlarged. Hyperinflation. Extensive overlying lines and tubes. Old healed left-sided r ib fracture deformity. Elongated/ectatic thoracic aorta. Diffuse interstitial densities persist, grea ter in the lower lungs. Difficult to exclude small effusions. Left greater than right basilar opacit ies. Possible nodule peripheral left upper lobe versus external artifact. Impression: 1. Multiple overlying lines and tubes limit the assessment. Unable to exclude a left upper lobe pulmo nary nodule. As it was not seen previously, external artifact is possible. Attention on follow-up. 2. COPD with superimposed CHF and interstitial pulmonary edema, overall unchanged. 3. Small effusions with adjacent left greater than right bibasilar atelectasis and/or consolidation.
[2019-03-31 07:29] LABS: ABG Base Excess 9.7 mmol/L; ABG HCO3 34 mmol/L (21-25); ABG Oxygen Saturation 96.3 % (94-97); ABG PCO2 55 mmHg (35-45); ABG PH 7.41 (7.35-7.45); ABG PO2 80 mmHg (83-108); ABG TCO2 36 mmol/L (19-24)
[2019-03-31 07:43] LABS: Allen Test Performed? no
[2019-03-31] MEDS: PANTOPRAZOLE 40 MG/10 ML VIAL IVP SCH (08:47)
[2019-03-31] MEDS: CHLORHEXIDINE GLUCONATE 15 ML CUP MUCOUS MEM SCH ×2 (08:47→20:06)
[2019-03-31] MEDS: ASPIRIN 325 MG TAB OG-TUBE SCH (08:48)
[2019-03-31] MEDS: CLOPIDOGREL 75 MG TAB OG-TUBE SCH (08:48)
[2019-03-31] MEDS: HEPARIN SODIUM,PORCINE 5,000 UNIT/ML 1 ML VIAL SQ SCH ×3 (08:48→23:05)
[2019-03-31] MEDS: CEFEPIME 2 GM in SODIUM CHLORIDE 0.9% 100 ML IVPB SCH ×3 (08:48→23:05)
[2019-03-31] MEDS: MEMANTINE 10 MG TAB PO SCH (08:48)
[2019-03-31] MEDS: DONEPEZIL 10 MG TAB OG-TUBE SCH (08:49)
--- NOTE | 2019-03-31 09:35 | PN ---
PROGRESS NOTE DATE OF SERVICE: 03/31/2009 CRITICAL CARE TIME: 34 minutes. This 69-year-old female admitted back on March 27 for an episode of Proteus mirabilis urosepsis with pyelonephritis and nephrolithiasis. She went from the emergency room to the operating room and then to the ICU. She had a cystoscopy performed by Dr. Gaona and a 5 mm right ureter stone was removed. The patient was admitted with a diagnosis of acute hypoxemic respiratory failure secondary to gram-negative sepsis and septic shock. In addition to the cystoscopy for hydronephrosis and ureterolithiasis, she had a stent placement as well. She also has a spiculated left hilar nodule, which will eventually need to be evaluated in the outpatient setting. Other medical problems included dementia, hypertension, DJD, CAD, hyperlipidemia, and some other minor medical problems. She remains on the ventilator. Yesterday, we did a daily interruption of sedation. Unfortunately, she became very agitated. Her heart rate, respiratory rate and blood pressure all went up. She appeared diaphoretic and begin to have or show signs of dyssynchrony with the ventilator. Hence, she was re-sedated. Will attempt another DIS today, which means daily interruption of sedation. Anyway, other than that, she had a pretty uneventful night. She remains on the ventilator, on the volume assist-control mode with a rate of 28, tidal volume 350, FiO2 50%, PEEP of 5. Blood gases show pO2 of 80, pCO2 of 55, and a pH 7.41. She is currently on propofol at 75 mcg/kg per minute, norepinephrine at 14 mcg/minute, saline at 20 mL an hour and Vital AF with a rate at 45 and a goal of 45 mL an hour. PHYSICAL EXAMINATION: VITAL SIGNS: Current vital signs good temperature 99.7, heart rate 91, respiratory rate 30, blood pressure 96/65, mean 75 and saturations in mid 90s on 50% and 5 of PEEP. HEENT: Examination is grossly unremarkable. There is no orally placed endotracheal tube and NG tube. NECK: Supple. Full range of motion. No adenopathy. CARDIOVASCULAR: Examination reveals a regular rhythm and rate. Heart rate about 90 beats per minute. S1, S2 normal. No distinct murmur noted. Heart sounds are distant. LUNGS: Reveal diffuse coarse rhonchi. Breath sounds are diminished. No wheezes or crackles. ABDOMEN: Soft. Bowel sounds are heard. EXTREMITIES: Are intact. No cyanosis, clubbing, or significant edema. SKIN: Without rash. NEUROLOGIC: Examination is brief but nonfocal. MICROBIOLOGIC: Microbiologic study show Proteus mirabilis in urine and blood. LAB DATA: Lab data includes a white count of 7.1, hemoglobin 10.5, hematocrit 34.3, platelet count 123,000. Sodium, potassium, chloride normal. CO2 of 33. BUN and creatinine were 9 and 0.39. X-RAY: Chest x-ray is done. Chest x-ray is consistent with mild interstitial edema. There is small effusions. MEDICATIONS: Medications are reviewed. She remains on Maxipime for the Proteus mirabilis sepsis. The other medications are reviewed and seem appropriate. ASSESSMENT: 1. Acute hypoxemic respiratory failure secondary to gram-negative sepsis secondary to Proteus mirabilis with associated septic shock and subsequent intubation and mechanical ventilation on March 27. 2. Acute urinary tract infection with hydronephrosis secondary to ureterolithiasis, status post cystoscopy, stent placement and right-sided stone removal. 3. Acute gram-negative bacteremia. 4. Mild interstitial edema. 5. Spiculated left mid lung lesion. 6. History of dementia. 7. History of hypertension. 8. Degenerative joint disease. 9. Coronary artery disease. 10.Hyperlipidemia. PLAN: The patient did have a daily interruption of sedation yesterday. When her sedation was off, she was very agitated. She did open her eyes, but she had no purposeful movements. Her heart rate, respiratory rate and blood pressure all went up significantly and she was re-sedated. Will attempt another DIS today. The patient is on appropriate medications. She remains on the Levophed for blood pressure support. Her Diprivan dose is currently 75 mcg/kg per minute. She is getting nourished. She was also noted to have a significant difference between peak and plateau pressures suggesting obstruction. That is currently being treated with breathing treatments. Additional recommendations and suggestions are forthcoming. Labs, x-rays, medications and problem list are all reviewed. CRITICAL CARE TIME: 34 minutes. NIKI / PRABHAKAR: [id number] /
[2019-03-31 11:43] LABS: Glucose,Whole Blood 168 mg/dL (75-99)
[2019-03-31 17:31] LABS: Glucose,Whole Blood 157 mg/dL (75-99)
[2019-03-31] MEDS: risperiDONE 1 MG TAB PO SCH (20:06)
[2019-03-31] MEDS: ATORVASTATIN 80 MG TAB OG-TUBE SCH (20:06)
[2019-03-31] MEDS: traZODone HCL 50 MG TAB PO SCH (20:06)
--- NOTE | 2019-03-31 23:13 | P.PN ---
Subjective Mr. Patiño is a 69-year-old female with a past medical history of dementia, coronary artery disease, COPD, hypertension brought in via EMS for having a fall at home while trying to get up from the commode. Patient is intubated and in the ICU currently. So most of the history is obtained from the ED notes and nursing staff report. The patient has been weak and was not herself for the past 3 days, family thought that this was because of her dementia. But she became gradually weaker to the extent that she had a fall while trying to get up from the commode. Family reported that she has been having increased frequency of urination and also strong odor to the urine. At the time of admission patient was suppressed hypoxic and hypotensive. Patient was given 2 L of IV normal saline bolus and started on maintenance fluids. She also received a dose of vancomycin and cefepime empirically. Urine analysis was positive for large leukocyte esterase. CAT scan of the abdomen and pelvis was showing right-sided hydronephrosis and the distal 5 mm ureteral calculus. Urology Dr. Salgado was consulted. Last night patient had removal of the stone and a ureteral stent was placed. Patient's blood cultures were positive for Proteus. So vancomycin has been discontinued and cefepime is continued. Patient has history of COPD, so after the procedure the patient could not be extubated. 03/29/2019 pt is 69 yo F with pmh of HTN, HLP, Dementia, Coronary art disease found poor candidate for revascularization procedure, who presents with progressive weakness over 3 days and fall , pt remains intubated and sedated in ICU for septic shock , hydronephrosis with 5 mm kid stone s/p surgical removal and stent placement , she is been followed closely by critical care team , and urology . labs showing improving leukocytosis 20 down to 12.5 K , rest of cbc is stable, sugar controlled. UC: gram negative bacilli. pt is DNR. home medication were reconciled and adjusted per family who considered transferring pt. replace asa ,and plavix if ok with surgery team for her h/o cad. 03/30/2019 Patient remains in the ICU sedated and intubated. Patient felt a sedation holiday today as she got agitated breathing very fast and 50s. Patient placed back to sedation With propofol. Patient remains on cefepime for her UTI and sepsis. Her urine cultures came back positive for Proteus. Blood pressure 110/57. Labs are noted, electrolytes replaced. Aspirin and Plavix were restarted. Patient is on Aricept. Repeat EKG showing normal sinus rhythm at 85 with QTC not prolonged at 392 03/31/2019 Pt remains in the ICU in critical condition , she is intubated and sedated ,failed sedation holiday yesterday, she remains on cefepime and levophed for her septic shock. critical care team and following the case closely Objective - Vital Signs Vital signs: Vital Signs Temp 99.2 F 03/31/19 16:00 Pulse 87 03/31/19 19:00 Resp 28 H 03/31/19 19:00 BP 114/72 03/31/19 19:00 Pulse Ox 95 03/31/19 19:00 Intake & Output 03/31/19 03/31/19 04/01/19 06:59 18:59 06:59 Intake Total 5745.852 2159.558 165.249 Output Total 855 919 73 Balance 923.228 383.558 92.249 Weight 62.7 kg 62.7 kg Intake: IV 499 453 23 Cefepime 2 gm In Sodium 200 Chloride 0.9% 100 ml @ 200 mls/hr IVPB Q8HR [facility] Rx#:[id number] Magnesium Sulfate-D5w Pmx 200 1 gm In Dextrose/Water 1 100ml.bag @ 100 mls/hr IVPB Q1H [facility] Rx#: [id number] Pressure bag 39 33 3 Sodium Chloride 0.9% 1, 260 220 20 000 ml @ 20 mls/hr IV . Q24H [facility] Rx#:[id number] Intake, IV Titration 424.228 627.558 142.249 Amount Magnesium Sulfate-D5w Pmx 100 1 gm In Dextrose/Water 1 100ml.bag @ 100 mls/hr IVPB Q1H [facility] Rx#: [id number] Norepinephrine 8 mg In 234.078 305.763 63.717 Sodium Chloride 0.9% 250 ml @ 0.05 MCG/KG/MIN 5. 689 mls/hr IV .Q24H [facility] Rx#:[id number] Propofol 1,000 mg In 190.15 221.795 78.532 Empty Bag 1 bag @ Titrate IV .Q0M [facility] Rx#: [id number] Tube Feeding 765 222 Other 90 Output: Urine 855 919 73 Other: Voiding Method Indwelling Catheter Indwelling Catheter ABP, PAP, CO, CI - Last Documented Arterial Blood Pressure 135/56 - Exam -GEN. APPEARANCE: Patient is mechanically ventilated and sedated HEAD EXAM: atraumatic, normocephalic, normal inspection. -ENT EXAM: OG-tube in place -RESPIRATORY EXAM: Coarse breath sounds positive with crackles. No wheezes CARDIOVASCULAR EXAM: S1-S2 heard no additional sounds GI/ABDOMINAL EXAM: soft, normal bowel sounds. EXTREMITIES EXAM: No pedal edema. BACK EXAM: normal inspection -NEUROLOGICAL EXAM: sedated SKIN EXAM: warm, dry, intact, normal color. Absent: rash - Labs CBC & Chem 7: 03/31/19 04:00 03/31/19 04:00 Labs: Abnormal Lab Results - Last 24 Hours (Table) 03/30/19 03/30/19 03/31/19 Range/Units 22:36 23:39 04:00 Hgb 10.5 L (11.4-16.0) gm/dL MCHC 30.8 L (31.0-37.0) g/dL RDW 17.1 H (11.5-15.5) % Plt Count 123 L (150-450) k/uL Lymphocytes # 0.5 L (1.0-4.8) k/uL ABG pCO2 (35-45) mmHg ABG pO2 (83-108) mmHg ABG HCO3 (21-25) mmol/L ABG Total CO2 (19-24) mmol/L Carbon Dioxide (22-30) mmol/L Creatinine (0.52-1.04) mg/dL Glucose (74-99) mg/dL POC Glucose (mg/dL) 204 H 163 H (75-99) mg/dL Calcium (8.4-10.2) mg/dL 03/31/19 03/31/19 03/31/19 Range/Units 04:00 04:55 05:47 Hgb (11.4-16.0) gm/dL MCHC (31.0-37.0) g/dL RDW (11.5-15.5) % Plt Count (150-450) k/uL Lymphocytes # (1.0-4.8) k/uL ABG pCO2 55 H (35-45) mmHg ABG pO2 80 L (83-108) mmHg ABG HCO3 34 H (21-25) mmol/L ABG Total CO2 36 H (19-24) mmol/L Carbon Dioxide 33 H (22-30) mmol/L Creatinine 0.39 L (0.52-1.04) mg/dL Glucose 182 H (74-99) mg/dL POC Glucose (mg/dL) 196 H (75-99) mg/dL Calcium 7.8 L (8.4-10.2) mg/dL 03/31/19 03/31/19 03/31/19 Range/Units 06:00 11:31 17:19 Hgb (11.4-16.0) gm/dL MCHC (31.0-37.0) g/dL RDW (11.5-15.5) % Plt Count (150-450) k/uL Lymphocytes # (1.0-4.8) k/uL ABG pCO2 (35-45) mmHg ABG pO2 (83-108) mmHg ABG HCO3 (21-25) mmol/L ABG Total CO2 (19-24) mmol/L Carbon Dioxide (22-30) mmol/L Creatinine (0.52-1.04) mg/dL Glucose (74-99) mg/dL POC Glucose (mg/dL) 205 H 168 H 157 H (75-99) mg/dL Calcium (8.4-10.2) mg/dL Microbiology - Last 24 Hours (Table) 03/29/19 12:16 Blood Culture - Preliminary Blood No Growth after 48 hours Assessment and Plan Assessment: Septic shock - gram-negative sepsis - secondary to UTI with Proteus Acute hypoxic respiratory failure. Status post intubated Complicated urinary tract infection - right renal calculi causing obstruction. Status post stent placement hydronephrosis. Spiculated left hilar nodule - finding on the CAT scan of the chest Hypertension Dementia COPD Coronary artery disease Dyslipidemia Plan: Patient is on mechanical ventilation. Continue with pressor support to hold them map above 65. She is on cefepime for her gram-negative sepsis secondary to her UTI with Proteus. Patient had cystoscopy and removal of the right renal calculi and had ureteral stent placement. Blood cultures and urine cultures are reviewed. continue with current antibiotic. Patient has history of coronary artery disease and was evaluated for CABG but was deemed to be a poor candidate for so being managed medically. Overall prognosis is poor. Urology and [employer] Technician following the patient. Further recommendations depending on the pr ogress of the patient.
[2019-03-31 23:15] LABS: Glucose,Whole Blood 167 mg/dL (75-99)
[2019-04-01] MEDS: NOREPINEPHRINE 8 MG in SODIUM CHLORIDE 0.9% 250 ML IV SCH ×2 (01:00→12:28)
[2019-04-01] MEDS: SODIUM CHLORIDE 0.9% 1,000 ML IV SCH (01:01)
[2019-04-01] MEDS: PROPOFOL 1,000 MG in EMPTY BAG 1 BAG IV SCH ×7 (02:06→23:26)
[2019-04-01] MEDS: IPRATROPIUM-ALBUTEROL 3 ML NEB INHALATION SCH ×6 (03:33→23:00)
[2019-04-01 04:19] LABS: Anisocytosis Slight; Basophils % (A) 0 %; Eosinophils # (A) 0.2 k/uL (0-0.7); Eosinophils % (A) 2 %; HCT 29.3 % (34.0-46.0); HGB 9.2 gm/dL (11.4-16.0); Hypochromasia Slight; Lymphocytes # (A) 0.7 k/uL (1.0-4.8); Lymphocytes % (A) 7 %; MCH 26.9 pg (25.0-35.0); MCHC 31.4 g/dL (31.0-37.0); MCV 85.7 fL (80.0-100.0); Mean Platelet Volume 7.6; Monocytes # (A) 0.3 k/uL (0-1.0); Monocytes % (A) 3 %; Neutrophils % (A) 86 %; Platelet Count 125 k/uL (150-450); RBC 3.42 m/uL (3.80-5.40); RDW 17.2 % (11.5-15.5); WBC 10.4 k/uL (3.8-10.6)
[2019-04-01 04:52] LABS: African American GFR (CKD) >90 (>60 ml/min/1.73 sqM); Anion Gap 3 mmol/L; Blood Urea Nitrogen 8 mg/dL (7-17); Calcium 7.8 mg/dL (8.4-10.2); Carbon Dioxide 35 mmol/L (22-30); Chloride 103 mmol/L (98-107); Glucose 173 mg/dL (74-99); Potassium 3.3 mmol/L (3.5-5.1); Sodium 141 mmol/L (137-145)
[2019-04-01 04:58] LABS: ABG Base Excess 11.8 mmol/L; ABG HCO3 37 mmol/L (21-25); ABG Oxygen Saturation 89.6 % (94-97); ABG PCO2 57 mmHg (35-45); ABG PH 7.41 (7.35-7.45); ABG TCO2 38 mmol/L (19-24); Allen Test Performed? Yes
[2019-04-01 05:00] LABS: ABG PO2 57 mmHg (83-108)
[2019-04-01] MEDS: POTASSIUM CHLORIDE 20 MEQ in WATER FOR INJECTION 1 100ML.BAG IVPB SCH ×2 (05:11→09:10)
[2019-04-01 05:39] LABS: Glucose,Whole Blood 198 mg/dL (75-99)
[2019-04-01] MEDS: MORPHINE SULFATE 2 MG/ML SYRINGE IV PRN (05:57)
[2019-04-01] MEDS: INSULIN ASPART (NovoLOG) 100 UNIT/ML VIAL SQ SCH ×3 (05:57→19:10)
--- NOTE | 2019-04-01 07:55 | XR ---
EXAMINATION TYPE: XR chest 1V portable DATE OF EXAM: 04/01/2019 COMPARISON: 03/31/2019 HISTORY: Acute respiratory failure TECHNIQUE: Single frontal view of the chest is obtained. FINDINGS: Enteric tube and endotracheal tube are similar in position as is the right internal jugula r central venous catheter, all appearing appropriately placed. The left upper lung nodular density on the prior exam is not well visualized on today's exam given overlying lines and tubes. Continued inc reasing confluence of the left basilar airspace disease is seen. Underlying COPD and interstitial ret icular pattern is again noted. Trace right and small left pleural effusion are present. No sizable pn eumothorax. Diffuse osseous demineralization. IMPRESSION: 1. Left upper lung possible pulmonary nodules not well-visualized however continued attention on foll ow-up exams or CT will exclude pulmonary nodule. 2. Continued increasing left basilar airspace disease, suspicious for pneumonia with small parapneumo adali effusion. Trace right pleural effusion and interstitial pulmonary edema of underlying cardiogenic or noncardiogenic fluid overload are similar.
[2019-04-01] MEDS: DONEPEZIL 10 MG TAB OG-TUBE SCH (09:11)
[2019-04-01] MEDS: CHLORHEXIDINE GLUCONATE 15 ML CUP MUCOUS MEM SCH ×2 (09:11→20:22)
[2019-04-01] MEDS: ASPIRIN 325 MG TAB OG-TUBE SCH (09:11)
[2019-04-01] MEDS: CEFEPIME 2 GM in SODIUM CHLORIDE 0.9% 100 ML IVPB SCH ×3 (09:11→23:28)
[2019-04-01] MEDS: PANTOPRAZOLE 40 MG/10 ML VIAL IVP SCH (09:11)
[2019-04-01] MEDS: CLOPIDOGREL 75 MG TAB OG-TUBE SCH (09:11)
[2019-04-01] MEDS: HEPARIN SODIUM,PORCINE 5,000 UNIT/ML 1 ML VIAL SQ SCH ×3 (09:11→23:28)
[2019-04-01] MEDS: MEMANTINE 10 MG TAB PO SCH (09:11)
--- NOTE | 2019-04-01 09:43 | P.PN ---
Progress Note - Text Progress Note Date: 04/01/19 Mrs. Morfin remains on the ventilator. Her Stapleton catheter is draining clear yellow urine. She is afebrile. Her serum creatinine level is normal. Urine and blood cultures have shown Proteus mirabilis, sensitive to most antibiotics tested. She is currently receiving Cefepime. From a urologic standpoint, no changes in her management are required at this time.
--- NOTE | 2019-04-01 11:12 | P.GSCN ---
<Aisha Bishop Jerzy - Last Filed: 04/01/19 11:05> History of Present Illness Consult date: 04/01/19 Reason for Consult: trach and peg Requesting physician: Errol Hernandez History of present illness: CHIEF COMPLAINT: Trach and PEG HISTORY OF PRESENT ILLNESS: 69-year-old female who is intubated on mechanical ventilation in the intensive care unit. Patient has been unable to wean. She has been intubated since March 27. General surgery was consulted for trach and PEG placement. PAST MEDICAL HISTORY: See list. PAST SURGICAL HISTORY: See list. SOCIAL HISTORY: No illicit drug use. REVIEW OF SYSTEMS: Unable to obtain secondary to sedation and mechanical ventilation PHYSICAL EXAM: VITAL SIGNS: Reviewed. GENERAL: Well-developed in no acute distress-sedated on mechanical ventilation. HEENT: No sclera icterus. Extraocular movements grossly intact. Moist buccal mucosa. Head is atraumatic, normocephalic. ABDOMEN: Soft. Nondistended. Positive bowel sounds. NEUROLOGIC: Sedated on mechanical ventilation ASSESSMENT: 1. Acute hypoxic respiratory failure requiring intubation and mechanical ventilation PLAN: No family present at bedside to discuss trach and peg Hold ASA and plavix if okay with medicine team for trach/peg Continue tube feeding as tolerated Trach/PEG to be performed in near future. Timing of procedure per Dr. Lane who will evaluate patient this afternoon. Nurse practitioner note has been reviewed by physician. Signing provider agrees with the documented findings, assessment, and plan of care. Past Medical History Past Medical History: Coronary Artery Disease (CAD), COPD, Hypertension History of Any Multi-Drug Resistant Organisms: None Reported Additional Past Surgical History / Comment(s): ANKLE SURGERY Past Anesthesia/Blood Transfusion Reactions: No Reported Reaction Additional Past Anesthesia/Blood Transfusion Reaction / Comm: NEVER RECEIVED BLOOD Past Psychological History: Anxiety, Depression Smoking Status: Current every day smoker Past Alcohol Use History: None Reported Past Drug Use History: None Reported - Past Family History Mother History Unknown: Yes Additional Family Medical History / Comment(s): PATIENT ADOPTED Father History Unknown: Yes Additional Family Medical History / Comment(s): PATIENT ADOPTED. Medications and Allergies Home Medications Medication Instructions Recorded Confirmed Type Multivitamins, Thera [Multivitamin 1 tab PO DAILY 11/21/15 03/27/19 History (formulary)] Acetaminophen Tab [Tylenol] 650 mg PO Q6HR PRN #0 tab 11/28/15 03/27/19 Rx Aspirin EC [Ecotrin] 325 mg PO DAILY #0 tablet.dr 11/28/15 03/27/19 Rx Atorvastatin [Lipitor] 80 mg PO HS #30 tab 11/28/15 03/27/19 Rx Metoprolol Tartrate [Lopressor] 50 mg PO BID #60 tab 11/28/15 03/27/19 Rx Nitroglycerin Sl Tabs [Nitrostat] 0.4 mg SUBLINGUAL Q5M PRN #30 tab 11/28/15 03/27/19 Rx Clopidogrel Bisulfate [Plavix] 75 mg PO DAILY 03/27/19 03/27/19 History Donepezil [Aricept] 10 mg PO DAILY 03/27/19 03/27/19 History Memantine [Namenda] 10 mg PO DAILY 03/27/19 03/27/19 History risperiDONE [RisperDAL] 1 mg PO HS 03/27/19 03/27/19 History traZODone HCL 150 mg PO HS 03/27/19 03/27/19 History Allergies Allergy/AdvReac Type Severity Reaction Status Date / Time No Known Allergies Allergy Verified 04/14/16 11:50 Surgical - Exam Vital Signs Temp Pulse Resp BP Pulse Ox 103.0 F H 120 H 40 H 114/80 92 L 03/27/19 16:27 03/27/19 16:27 03/27/19 16:27 03/27/19 16:27 03/27/19 16:27 Results - Labs 04/01/19 04:09 04/01/19 04:09 Abnormal Lab Results - Last 24 Hours (Table) 03/31/19 03/31/19 03/31/19 Range/Units 11:31 17:19 23:03 RBC (3.80-5.40) m/uL Hgb (11.4-16.0) gm/dL Hct (34.0-46.0) % RDW (11.5-15.5) % Plt Count (150-450) k/uL Neutrophils # (1.3-7.7) k/uL Lymphocytes # (1.0-4.8) k/uL ABG pCO2 (35-45) mmHg ABG pO2 (83-108) mmHg ABG HCO3 (21-25) mmol/L ABG Total CO2 (19-24) mmol/L ABG O2 Saturation (94-97) % Potassium (3.5-5.1) mmol/L Carbon Dioxide (22-30) mmol/L Creatinine (0.52-1.04) mg/dL Glucose (74-99) mg/dL POC Glucose (mg/dL) 168 H 157 H 167 H (75-99) mg/dL Calcium (8.4-10.2) mg/dL 04/01/19 04/01/19 04/01/19 Range/Units 04:09 04:09 04:53 RBC 3.42 L (3.80-5.40) m/uL Hgb 9.2 L (11.4-16.0) gm/dL Hct 29.3 L (34.0-46.0) % RDW 17.2 H (11.5-15.5) % Plt Count 125 L (150-450) k/uL Neutrophils # 9.0 H (1.3-7.7) k/uL Lymphocytes # 0.7 L (1.0-4.8) k/uL ABG pCO2 57 H (35-45) mmHg ABG pO2 57 L* (83-108) mmHg ABG HCO3 37 H (21-25) mmol/L ABG Total CO2 38 H (19-24) mmol/L ABG O2 Saturation 89.6 L (94-97) % Potassium 3.3 L (3.5-5.1) mmol/L Carbon Dioxide 35 H (22-30) mmol/L Creatinine 0.26 L (0.52-1.04) mg/dL Glucose 173 H (74-99) mg/dL POC Glucose (mg/dL) (75-99) mg/dL Calcium 7.8 L (8.4-10.2) mg/dL 04/01/19 Range/Units 05:28 RBC (3.80-5.40) m/uL Hgb (11.4-16.0) gm/dL Hct (34.0-46.0) % RDW (11.5-15.5) % Plt Count (150-450) k/uL Neutrophils # (1.3-7.7) k/uL Lymphocytes # (1.0-4.8) k/uL ABG pCO2 (35-45) mmHg ABG pO2 (83-108) mmHg ABG HCO3 (21-25) mmol/L ABG Total CO2 (19-24) mmol/L ABG O2 Saturation (94-97) % Potassium (3.5-5.1) mmol/L Carbon Dioxide (22-30) mmol/L Creatinine (0.52-1.04) mg/dL Glucose (74-99) mg/dL POC Glucose (mg/dL) 198 H (75-99) mg/dL Calcium (8.4-10.2) mg/dL Microbiology - Last 24 Hours (Table) 03/29/19 12:16 Blood Culture - Preliminary Blood No Growth after 48 hours Diabetes panel 04/01/19 Range/Units 04:09 Sodium 141 (137-145) mmol/L Potassium 3.3 L (3.5-5.1) mmol/L Chloride 103 (98-107) mmol/L Carbon Dioxide 35 H (22-30) mmol/L BUN 8 (7-17) mg/dL Creatinine 0.26 L (0.52-1.04) mg/dL Glucose 173 H (74-99) mg/dL Calcium 7.8 L (8.4-10.2) mg/dL Calcium panel 04/01/19 Range/Units 04:09 Calcium 7.8 L (8.4-10.2) mg/dL Pituitary panel 04/01/19 Range/Units 04:09 Sodium 141 (137-145) mmol/L Potassium 3.3 L (3.5-5.1) mmol/L Chloride 103 (98-107) mmol/L Carbon Dioxide 35 H (22-30) mmol/L BUN 8 (7-17) mg/dL Creatinine 0.26 L (0.52-1.04) mg/dL Glucose 173 H (74-99) mg/dL Calcium 7.8 L (8.4-10.2) mg/dL Adrenal panel 04/01/19 Range/Units 04:09 Sodium 141 (137-145) mmol/L Potassium 3.3 L (3.5-5.1) mmol/L Chloride 103 (98-107) mmol/L Carbon Dioxide 35 H (22-30) mmol/L BUN 8 (7-17) mg/dL Creatinine 0.26 L (0.52-1.04) mg/dL Glucose 173 H (74-99) mg/dL Calcium 7.8 L (8.4-10.2) mg/dL <Korey Lane - Last Filed: 04/01/19 15:26> History of Present Illness History of present illness: As above. Discussed case with pulmonary. Patient requires tracheostomy and PEG tube placement. We'll schedule for tomorrow. We'll discuss with family preoperatively. Hold aspirin and Plavix for now. Surgical - Exam Vital Signs Temp Pulse Resp BP Pulse Ox 103.0 F H 120 H 40 H 114/80 92 L 03/27/19 16:27 03/27/19 16:27 03/27/19 16:27 03/27/19 16:27 03/27/19 16:27 Results - Labs 04/01/19 04:09 04/01/19 13:40 Abnormal Lab Results - Last 24 Hours (Table) 03/31/19 03/31/19 04/01/19 Range/Units 17:19 23:03 04:09 RBC 3.42 L (3.80-5.40) m/uL Hgb 9.2 L (11.4-16.0) gm/dL Hct 29.3 L (34.0-46.0) % RDW 17.2 H (11.5-15.5) % Plt Count 125 L (150-450) k/uL Neutrophils # 9.0 H (1.3-7.7) k/uL Lymphocytes # 0.7 L (1.0-4.8) k/uL ABG pCO2 (35-45) mmHg ABG pO2 (83-108) mmHg ABG HCO3 (21-25) mmol/L ABG Total CO2 (19-24) mmol/L ABG O2 Saturation (94-97) % Potassium (3.5-5.1) mmol/L Carbon Dioxide (22-30) mmol/L Creatinine (0.52-1.04) mg/dL Glucose (74-99) mg/dL POC Glucose (mg/dL) 157 H 167 H (75-99) mg/dL Calcium (8.4-10.2) mg/dL 04/01/19 04/01/19 04/01/19 Range/Units 04:09 04:53 05:28 RBC (3.80-5.40) m/uL Hgb (11.4-16.0) gm/dL Hct (34.0-46.0) % RDW (11.5-15.5) % Plt Count (150-450) k/uL Neutrophils # (1.3-7.7) k/uL Lymphocytes # (1.0-4.8) k/uL ABG pCO2 57 H (35-45) mmHg ABG pO2 57 L* (83-108) mmHg ABG HCO3 37 H (21-25) mmol/L ABG Total CO2 38 H (19-24) mmol/L ABG O2 Saturation 89.6 L (94-97) % Potassium 3.3 L (3.5-5.1) mmol/L Carbon Dioxide 35 H (22-30) mmol/L Creatinine 0.26 L (0.52-1.04) mg/dL Glucose 173 H (74-99) mg/dL POC Glucose (mg/dL) 198 H (75-99) mg/dL Calcium 7.8 L (8.4-10.2) mg/dL 04/01/19 Range/Units 11:51 RBC (3.80-5.40) m/uL Hgb (11.4-16.0) gm/dL Hct (34.0-46.0) % RDW (11.5-15.5) % Plt Count (150-450) k/uL Neutrophils # (1.3-7.7) k/uL Lymphocytes # (1.0-4.8) k/uL ABG pCO2 (35-45) mmHg ABG pO2 (83-108) mmHg ABG HCO3 (21-25) mmol/L ABG Total CO2 (19-24) mmol/L ABG O2 Saturation (94-97) % Potassium (3.5-5.1) mmol/L Carbon Dioxide (22-30) mmol/L Creatinine (0.52-1.04) mg/dL Glucose (74-99) mg/dL POC Glucose (mg/dL) 130 H (75-99) mg/dL Calcium (8.4-10.2) mg/dL Microbiology - Last 24 Hours (Table) 03/29/19 12:16 Blood Culture - Preliminary Blood No Growth after 72 hours Diabetes panel 04/01/19 04/01/19 Range/Units 04:09 13:40 Sodium 141 (137-145) mmol/L Potassium 3.3 L 3.9 (3.5-5.1) mmol/L Chloride 103 (98-107) mmol/L Carbon Dioxide 35 H (22-30) mmol/L BUN 8 (7-17) mg/dL Creatinine 0.26 L (0.52-1.04) mg/dL Glucose 173 H (74-99) mg/dL Calcium 7.8 L (8.4-10.2) mg/dL Calcium panel 04/01/19 Range/Units 04:09 Calcium 7.8 L (8.4-10.2) mg/dL Pituitary panel 04/01/19 04/01/19 Range/Units 04:09 13:40 Sodium 141 (137-145) mmol/L Potassium 3.3 L 3.9 (3.5-5.1) mmol/L Chloride 103 (98-107) mmol/L Carbon Dioxide 35 H (22-30) mmol/L BUN 8 (7-17) mg/dL Creatinine 0.26 L (0.52-1.04) mg/dL Glucose 173 H (74-99) mg/dL Calcium 7.8 L (8.4-10.2) mg/dL Adrenal panel 04/01/19 04/01/19 Range/Units 04:09 13:40 Sodium 141 (137-145) mmol/L Potassium 3.3 L 3.9 (3.5-5.1) mmol/L Chloride 103 (98-107) mmol/L Carbon Dioxide 35 H (22-30) mmol/L BUN 8 (7-17) mg/dL Creatinine 0.26 L (0.52-1.04) mg/dL Glucose 173 H (74-99) mg/dL Calcium 7.8 L (8.4-10.2) mg/dL
--- NOTE | 2019-04-01 11:17 | PN ---
PROGRESS NOTE DATE OF SERVICE: 04/01/2019 CRITICAL CARE TIME: 35 minutes. This is a 69-year-old female admitted back on March 27 for an episode of Proteus mirabilis urosepsis with pyelonephritis and nephrolithiasis. She was seen initially in the emergency room, went to the emergency room to the operating room where Dr. Gaona did a cystoscopy and removed a 5 mm right stone in the right ureter. The patient was admitted with a diagnosis of acute hypoxemic respiratory failure secondary to gram- negative sepsis and septic shock. In addition to the cystoscopy and removal of the stone, a stent was placed. The patient has a history of multiple medical problems including dementia, hypertension, DJD, CAD, hyperlipidemia, as well as some other medical problems. She remains on mechanical ventilator. Yesterday we did another daily interruption of sedation, hoping for improvements in her mental status. She becomes very agitated, starts breathing at 40-50 times a minute with increases of her heart rate and blood pressure. For that reason, she was re-sedated. In addition, yesterday she was a DNR. Apparently, the family has now made her a FULL CODE. I think it would be very appropriate at this point to move on to tracheostomy and PEG tube placement. I think that would give her the best chance of improving. We are going to increase the PEEP from 5 to 8 based on her blood gases. She is currently on the volume assist-control mode, rate of 28, tidal volume 350, FiO2 of 60%, PEEP of 5. Blood gases show a pO2 of 57, pCO2 of 57, pH of 7.4. She is getting Diprivan at 75 mcg/kg per minute, Levophed at 10 mcg/minute, 0.9 at 10 mL an hour and Vital high-protein at 33 with a goal of 33 mL an hour. Currently, her condition is basically unchanged. \ Current vital signs are reviewed. Temperature is 98.7, heart rate 79, respiratory rate 28, blood pressure 109/54, saturations are 92%, that is on 60% and PEEP of 8. Appears in no acute distress. Currently sedated. HEENT: Examination is grossly unremarkable. There is an orally placed endotracheal tube and NG tube. NECK: Supple. Full range of motion. No adenopathy, thyromegaly or neck vein distention. CARDIOVASCULAR: Examination reveals regular rhythm and rate. Heart rate in the 80s. Heart sounds are distant. No distinct murmur noted. LUNGS: Reveal coarse inspiratory and expiratory rhonchi. No crackles. No wheezes. There are some crackles bilaterally. ABDOMEN: Soft. Bowel sounds are heard. EXTREMITIES: Intact. No cyanosis, clubbing, or significant edema. Skin: Without rash. NEUROLOGIC: Examination could not be adequately assessed. The patient's chest. x-ray is reviewed. It shows diffuse interstitial changes, which could be either interstitial pneumonia, heart failure, or ARDS. There is some left basilar airspace disease suspicious for pneumonia and trace right pleural effusion. Microbiologic study show evidence of Proteus mirabilis and urine in blood. LABORATORY DATA: Includes a white count 10.4, hemoglobin 9.2, hematocrit 29.3, and platelet count 125,000. Blood gases have been noted already. Sodium 141, potassium 3.3, chloride 103 CO2 of 35. BUN and creatinine were 8 and 0.26. Medications are reviewed. She remains on Maxipime as an antibiotic. ASSESSMENT: 1. Acute hypoxemic respiratory failure secondary to gram-negative sepsis, caused by Proteus mirabilis urinary tract infection and proteus mirabilis bacteremia with septic shock and subsequent intubation, mechanical ventilation on March 27. 2. Acute urinary tract infection with hydronephrosis secondary to ureterolithiasis, status post cystoscopy and stent placement with right-sided stone removed. 3. Acute gram-negative bacteremia. 4. Mild interstitial edema. 5. Spiculated left mid lung lesion. 6. History of dementia. 7. History of hypertension. 8. Degenerative joint disease. 9. Coronary artery disease. 10.Hyperlipidemia. PLAN: The patient should have a tracheostomy and PEG tube placement. She has not really made any progress. She has had multiple days of daily interruption of sedation and she becomes very agitated. Her oxygenation has worsened. PEEP is increased to 8. Will continue tube feeds. She remains on norepinephrine for blood pressure support. She is now a FULL CODE. Additional recommendations and suggestions are forthcoming. Prognosis is poor. CRITICAL CARE TIME: 35 minutes. NIKI / PRABHAKAR: [id number] /
[2019-04-01 12:02] LABS: Glucose,Whole Blood 130 mg/dL (75-99)
[2019-04-01 17:38] LABS: Glucose,Whole Blood 184 mg/dL (75-99)
--- NOTE | 2019-04-01 18:08 | P.PN ---
Subjective Mr. Patiño is a 69-year-old female with a past medical history of dementia, coronary artery disease, COPD, hypertension brought in via EMS for having a fall at home while trying to get up from the commode. Patient is intubated and in the ICU currently. So most of the history is obtained from the ED notes and nursing staff report. The patient has been weak and was not herself for the past 3 days, family thought that this was because of her dementia. But she became gradually weaker to the extent that she had a fall while trying to get up from the commode. Family reported that she has been having increased frequency of urination and also strong odor to the urine. At the time of admission patient was suppressed hypoxic and hypotensive. Patient was given 2 L of IV normal saline bolus and started on maintenance fluids. She also received a dose of vancomycin and cefepime empirically. Urine analysis was positive for large leukocyte esterase. CAT scan of the abdomen and pelvis was showing right-sided hydronephrosis and the distal 5 mm ureteral calculus. Urology Dr. Salgado was consulted. Last night patient had removal of the stone and a ureteral stent was placed. Patient's blood cultures were positive for Proteus. So vancomycin has been discontinued and cefepime is continued. Patient has history of COPD, so after the procedure the patient could not be extubated. 03/29/2019 pt is 69 yo F with pmh of HTN, HLP, Dementia, Coronary art disease found poor candidate for revascularization procedure, who presents with progressive weakness over 3 days and fall , pt remains intubated and sedated in ICU for septic shock , hydronephrosis with 5 mm kid stone s/p surgical removal and stent placement , she is been followed closely by critical care team , and urology . labs showing improving leukocytosis 20 down to 12.5 K , rest of cbc is stable, sugar controlled. UC: gram negative bacilli. pt is DNR. home medication were reconciled and adjusted per family who considered transferring pt. replace asa ,and plavix if ok with surgery team for her h/o cad. 03/30/2019 Patient remains in the ICU sedated and intubated. Patient felt a sedation holiday today as she got agitated breathing very fast and 50s. Patient placed back to sedation With propofol. Patient remains on cefepime for her UTI and sepsis. Her urine cultures came back positive for Proteus. Blood pressure 110/57. Labs are noted, electrolytes replaced. Aspirin and Plavix were restarted. Patient is on Aricept. Repeat EKG showing normal sinus rhythm at 85 with QTC not prolonged at 392 03/31/2019 Pt remains in the ICU in critical condition , she is intubated and sedated ,failed sedation holiday yesterday, she remains on cefepime and levophed for her septic shock. critical care team and following the case closely 04/01/2019 pt is in the ICU intubated and sedated . pt still needs levophed and she is on cefepime urologist recommended to c/w same management , while critical care team are planing for PEG and tracheostomy , surgical consult is called . Objective - Vital Signs Vital signs: Vital Signs Temp 98.4 F 04/01/19 08:00 Pulse 81 04/01/19 15:28 Resp 28 H 04/01/19 15:28 BP 89/55 04/01/19 11:00 Pulse Ox 91 L 04/01/19 11:00 Intake & Output 03/31/19 04/01/19 04/01/19 18:59 06:59 18:59 Intake Total 2194.376 7937.117 568.946 Output Total 919 1038 130 Balance 383.558 583.117 438.946 Weight 62.7 kg 65.4 kg Intake: IV 453 476 23 Cefepime 2 gm In Sodium 200 200 Chloride 0.9% 100 ml @ 200 mls/hr IVPB Q8HR [facility] Rx#:[id number] Pressure bag 33 36 3 Sodium Chloride 0.9% 1, 220 240 20 000 ml @ 20 mls/hr IV . Q24H [facility] Rx#:[id number] Intake, IV Titration 627.558 560.117 512.946 Amount Magnesium Sulfate-D5w Pmx 100 1 gm In Dextrose/Water 1 100ml.bag @ 100 mls/hr IVPB Q1H [facility] Rx#: [id number] Norepinephrine 8 mg In 305.763 198.657 252.614 Sodium Chloride 0.9% 250 ml @ 0.05 MCG/KG/MIN 5. 689 mls/hr IV .Q24H [facility] Rx#:[id number] Propofol 1,000 mg In 221.795 361.460 260.332 Empty Bag 1 bag @ Titrate IV .Q0M [facility] Rx#: [id number] Tube Feeding 222 495 33 Other 90 Output: Urine 919 1038 130 Other: Voiding Method Indwelling Catheter Indwelling Catheter Indwelling Catheter ABP, PAP, CO, CI - Last Documented Arterial Blood Pressure 82/47 - Exam -GEN. APPEARANCE: Patient is mechanically ventilated and sedated HEAD EXAM: atraumatic, normocephalic, normal inspection. -ENT EXAM: OG-tube in place -RESPIRATORY EXAM: Coarse breath sounds positive with crackles. No wheezes CARDIOVASCULAR EXAM: S1-S2 heard no additional sounds GI/ABDOMINAL EXAM: soft, normal bowel sounds. EXTREMITIES EXAM: No pedal edema. BACK EXAM: normal inspection -NEUROLOGICAL EXAM: sedated SKIN EXAM: warm, dry, intact, normal color. Absent: rash - Labs CBC & Chem 7: 04/01/19 04:09 04/01/19 13:40 Labs: Abnormal Lab Results - Last 24 Hours (Table) 03/31/19 04/01/19 04/01/19 Range/Units 23:03 04:09 04:09 RBC 3.42 L (3.80-5.40) m/uL Hgb 9.2 L (11.4-16.0) gm/dL Hct 29.3 L (34.0-46.0) % RDW 17.2 H (11.5-15.5) % Plt Count 125 L (150-450) k/uL Neutrophils # 9.0 H (1.3-7.7) k/uL Lymphocytes # 0.7 L (1.0-4.8) k/uL ABG pCO2 (35-45) mmHg ABG pO2 (83-108) mmHg ABG HCO3 (21-25) mmol/L ABG Total CO2 (19-24) mmol/L ABG O2 Saturation (94-97) % Potassium 3.3 L (3.5-5.1) mmol/L Carbon Dioxide 35 H (22-30) mmol/L Creatinine 0.26 L (0.52-1.04) mg/dL Glucose 173 H (74-99) mg/dL POC Glucose (mg/dL) 167 H (75-99) mg/dL Calcium 7.8 L (8.4-10.2) mg/dL 04/01/19 04/01/19 04/01/19 Range/Units 04:53 05:28 11:51 RBC (3.80-5.40) m/uL Hgb (11.4-16.0) gm/dL Hct (34.0-46.0) % RDW (11.5-15.5) % Plt Count (150-450) k/uL Neutrophils # (1.3-7.7) k/uL Lymphocytes # (1.0-4.8) k/uL ABG pCO2 57 H (35-45) mmHg ABG pO2 57 L* (83-108) mmHg ABG HCO3 37 H (21-25) mmol/L ABG Total CO2 38 H (19-24) mmol/L ABG O2 Saturation 89.6 L (94-97) % Potassium (3.5-5.1) mmol/L Carbon Dioxide (22-30) mmol/L Creatinine (0.52-1.04) mg/dL Glucose (74-99) mg/dL POC Glucose (mg/dL) 198 H 130 H (75-99) mg/dL Calcium (8.4-10.2) mg/dL 04/01/19 Range/Units 17:37 RBC (3.80-5.40) m/uL Hgb (11.4-16.0) gm/dL Hct (34.0-46.0) % RDW (11.5-15.5) % Plt Count (150-450) k/uL Neutrophils # (1.3-7.7) k/uL Lymphocytes # (1.0-4.8) k/uL ABG pCO2 (35-45) mmHg ABG pO2 (83-108) mmHg ABG HCO3 (21-25) mmol/L ABG Total CO2 (19-24) mmol/L ABG O2 Saturation (94-97) % Potassium (3.5-5.1) mmol/L Carbon Dioxide (22-30) mmol/L Creatinine (0.52-1.04) mg/dL Glucose (74-99) mg/dL POC Glucose (mg/dL) 184 H (75-99) mg/dL Calcium (8.4-10.2) mg/dL Microbiology - Last 24 Hours (Table) 03/29/19 12:16 Blood Culture - Preliminary Blood No Growth after 72 hours Assessment and Plan Assessment: Septic shock - gram-negative sepsis - secondary to UTI with Proteus Acute hypoxic respiratory failure. Status post intubated Complicated urinary tract infection - right renal calculi causing obstruction. Status post stent placement hydronephrosis. Spiculated left hilar nodule - finding on the CAT scan of the chest Hypertension Dementia COPD Coronary artery disease Dyslipidemia Plan: Patient is on mechanical ventilation. Continue with pressor support to hold them map above 65. She is on cefepime for her gram-negative sepsis secondary to her UTI with Proteus. Patient had cystoscopy and removal of the right renal calculi and had ureteral stent placement. Blood cultures and urine cultures are reviewed. continue with current antibiotic. Patient has history of coronary artery disease and was evaluated for CABG but was deemed to be a poor candidate for so being managed medically. Overall prognosis is poor. Urology and [employer] Member following the patient. Further recommendations depending on the progress of the patient. plan for PEG and tracheostomy
[2019-04-01 19:04] LABS: Glucose,Whole Blood 183 mg/dL (75-99)
[2019-04-01] MEDS: ATORVASTATIN 80 MG TAB OG-TUBE SCH (20:22)
[2019-04-01] MEDS: risperiDONE 1 MG TAB PO SCH (20:23)
[2019-04-01] MEDS: traZODone HCL 50 MG TAB PO SCH (20:23)
[2019-04-02 00:14] LABS: Glucose,Whole Blood 156 mg/dL (75-99)
[2019-04-02] MEDS: NOREPINEPHRINE 8 MG in SODIUM CHLORIDE 0.9% 250 ML IV SCH ×2 (01:00→09:56)
[2019-04-02] MEDS: INSULIN ASPART (NovoLOG) 100 UNIT/ML VIAL SQ SCH ×4 (01:40→18:58)
[2019-04-02] MEDS: SODIUM CHLORIDE 0.9% 1,000 ML IV SCH (01:41)
[2019-04-02] MEDS: PROPOFOL 1,000 MG in EMPTY BAG 1 BAG IV SCH ×5 (02:50→23:45)
[2019-04-02] MEDS: IPRATROPIUM-ALBUTEROL 3 ML NEB INHALATION SCH ×6 (02:56→23:16)
[2019-04-02 04:30] LABS: ABG Base Excess 11.9 mmol/L; ABG HCO3 36 mmol/L (21-25); ABG Oxygen Saturation 94.7 % (94-97); ABG PCO2 57 mmHg (35-45); ABG PH 7.41 (7.35-7.45); ABG PO2 73 mmHg (83-108); ABG TCO2 38 mmol/L (19-24)
[2019-04-02 04:41] LABS: Allen Test Performed? no
[2019-04-02 04:48] LABS: Anisocytosis Slight; Basophils % (A) 0 %; Eosinophils # (A) 0.1 k/uL (0-0.7); Eosinophils % (A) 2 %; HCT 28.7 % (34.0-46.0); HGB 8.8 gm/dL (11.4-16.0); Hypochromasia Slight; Lymphocytes # (A) 0.6 k/uL (1.0-4.8); Lymphocytes % (A) 9 %; MCH 26.4 pg (25.0-35.0); MCHC 30.7 g/dL (31.0-37.0); MCV 85.9 fL (80.0-100.0); Mean Platelet Volume 7.7; Monocytes # (A) 0.3 k/uL (0-1.0); Monocytes % (A) 4 %; Neutrophils # (A) 6.3 k/uL (1.3-7.7); Neutrophils % (A) 83 %; Platelet Count 133 k/uL (150-450); RBC 3.34 m/uL (3.80-5.40); RDW 17.3 % (11.5-15.5); WBC 7.6 k/uL (3.8-10.6)
[2019-04-02 05:42] LABS: African American GFR (CKD) >90 (>60 ml/min/1.73 sqM); Anion Gap 1 mmol/L; Blood Urea Nitrogen 11 mg/dL (7-17); Carbon Dioxide 36 mmol/L (22-30); Chloride 105 mmol/L (98-107); Glucose 178 mg/dL (74-99); Potassium 3.5 mmol/L (3.5-5.1); Sodium 142 mmol/L (137-145)
[2019-04-02 05:52] LABS: Glucose,Whole Blood 167 mg/dL (75-99)
[2019-04-02] MEDS: POTASSIUM BICARBONATE/CIT AC 20 MEQ TABLET.EFF NG-TUBE SCH ×2 (07:14→09:12)
--- NOTE | 2019-04-02 07:29 | XR ---
EXAMINATION TYPE: XR chest 1V portable DATE OF EXAM: 04/02/2019 Comparison: 04/01/2019 Clinical History: 69 year-old female to management Findings: ET and NG tubes are satisfactory. Multiple EKG lines overlie the chest. Right IJ CVC tip in the mid S VC. Heart upper limits of normal in size. Hyperinflation. Diffuse interstitial and vascular prominenc e show some improvement from prior exam. Patchy left greater than right bibasilar opacities persist. Impression: 1. COPD with superimposed interstitial pulmonary edema. Slight improvement from prior exam. 2. Continued left greater than right bibasilar infiltrates and/or pulmonary edema and possible small effusions.
[2019-04-02] MEDS: CEFEPIME 2 GM in SODIUM CHLORIDE 0.9% 100 ML IVPB SCH ×2 (09:12→17:11)
[2019-04-02] MEDS: PANTOPRAZOLE 40 MG/10 ML VIAL IVP SCH (09:13)
[2019-04-02] MEDS: CHLORHEXIDINE GLUCONATE 15 ML CUP MUCOUS MEM SCH ×2 (09:13→21:18)
[2019-04-02] MEDS: DONEPEZIL 10 MG TAB OG-TUBE SCH (09:13)
[2019-04-02] MEDS: MEMANTINE 10 MG TAB PO SCH (09:13)
[2019-04-02] MEDS: HEPARIN SODIUM,PORCINE 5,000 UNIT/ML 1 ML VIAL SQ SCH ×2 (09:13→17:11)
[2019-04-02] MEDS: CLOPIDOGREL 75 MG TAB OG-TUBE SCH (09:14)
[2019-04-02] MEDS: ASPIRIN 325 MG TAB OG-TUBE SCH (09:14)
--- NOTE | 2019-04-02 09:50 | P.PN ---
<BishopAisha Jerzy - Last Filed: 04/02/19 09:48> Subjective Progress Note Date: 04/02/19 CHIEF COMPLAINT: Trach and PEG HISTORY OF PRESENT ILLNESS: 69-year-old female who is intubated on mechanical ventilation in the intensive care unit. Patient has been unable to wean. She has been intubated since March 27. Trach and PEG placement was sc heduled for today. However patient's family has decided they would like to cancel procedure today and see how the patient does over the next few days. PHYSICAL EXAM: VITAL SIGNS: Reviewed. GENERAL: Well-developed in no acute distress-sedated on mechanical ventilation. HEENT: No sclera icterus. Extraocular movements grossly intact. Moist buccal mucosa. Head is atraumatic, normocephalic. ABDOMEN: Soft. Nondistended. Positive bowel sounds. NEUROLOGIC: Sedated on mechanical ventilation ASSESSMENT: 1. Acute hypoxic respiratory failure requiring intubation and mechanical ventilation PLAN: Continue tube feeding as tolerated Continue to hold aspirin and Plavix in the event that family changes their mind and would like to proceed with trach and PEG Nurse practitioner note has been reviewed by physician. Signing provider agrees with the documented findings, assessment, and plan of care. Objective - Vital Signs Vital signs: Vital Signs Temp 97.5 F L 04/02/19 00:00 Pulse 84 04/02/19 07:28 Resp 28 H 04/02/19 07:00 BP 91/63 04/02/19 07:00 Pulse Ox 95 04/02/19 07:00 Intake & Output 04/01/19 04/02/19 04/02/19 18:59 06:59 18:59 Intake Total 2411.800 6210.839 23 Output Total 593 565 50 Balance 1078.946 492.839 -27 Weight 67.9 kg 67.9 kg Intake: IV 473 376 23 Cefepime 2 gm In Sodium 200 100 Chloride 0.9% 100 ml @ 200 mls/hr IVPB Q8HR [facility] Rx#:[id number] Pressure bag 33 36 3 Sodium Chloride 0.9% 1, 240 240 20 000 ml @ 20 mls/hr IV . Q24H [facility] Rx#:[id number] Intake, IV Titration 712.946 549.839 Amount Cefepime 2 gm In Sodium 100 Chloride 0.9% 100 ml @ 200 mls/hr IVPB Q8HR [facility] Rx#:[id number] Norepinephrine 8 mg In 252.614 378.226 Sodium Chloride 0.9% 250 ml @ 0.05 MCG/KG/MIN 5. 689 mls/hr IV .Q24H [facility] Rx#:[id number] Potassium Chloride 20 meq 100 In Water For Injection 1 100ml.bag @ 50 mls/hr IVPB Q2H [facility] Rx#: [id number] Propofol 1,000 mg In 260.332 171.613 Empty Bag 1 bag @ Titrate IV .Q0M [facility] Rx#: [id number] Tube Feeding 396 132 Other 90 Output: Urine 593 565 50 Other: Voiding Method Indwelling Catheter Indwelling Catheter Indwelling Catheter ABP, PAP, CO, CI - Last Documented Arterial Blood Pressure 94/52 - Labs CBC & Chem 7: 04/02/19 04:30 04/02/19 04:30 Labs: Abnormal Lab Results - Last 24 Hours (Table) 04/01/19 04/01/19 04/01/19 Range/Units 11:51 17:37 18:48 RBC (3.80-5.40) m/uL Hgb (11.4-16.0) gm/dL Hct (34.0-46.0) % MCHC (31.0-37.0) g/dL RDW (11.5-15.5) % Plt Count (150-450) k/uL Lymphocytes # (1.0-4.8) k/uL ABG pCO2 (35-45) mmHg ABG pO2 (83-108) mmHg ABG HCO3 (21-25) mmol/L ABG Total CO2 (19-24) mmol/L Carbon Dioxide (22-30) mmol/L Creatinine (0.52-1.04) mg/dL Glucose (74-99) mg/dL POC Glucose (mg/dL) 130 H 184 H 183 H (75-99) mg/dL Calcium (8.4-10.2) mg/dL 04/02/19 04/02/19 04/02/19 Range/Units 00:03 04:29 04:30 RBC 3.34 L (3.80-5.40) m/uL Hgb 8.8 L (11.4-16.0) gm/dL Hct 28.7 L (34.0-46.0) % MCHC 30.7 L (31.0-37.0) g/dL RDW 17.3 H (11.5-15.5) % Plt Count 133 L (150-450) k/uL Lymphocytes # 0.6 L (1.0-4.8) k/uL ABG pCO2 57 H (35-45) mmHg ABG pO2 73 L (83-108) mmHg ABG HCO3 36 H (21-25) mmol/L ABG Total CO2 38 H (19-24) mmol/L Carbon Dioxide (22-30) mmol/L Creatinine (0.52-1.04) mg/dL Glucose (74-99) mg/dL POC Glucose (mg/dL) 156 H (75-99) mg/dL Calcium (8.4-10.2) mg/dL 04/02/19 04/02/19 Range/Units 04:30 05:48 RBC (3.80-5.40) m/uL Hgb (11.4-16.0) gm/dL Hct (34.0-46.0) % MCHC (31.0-37.0) g/dL RDW (11.5-15.5) % Plt Count (150-450) k/uL Lymphocytes # (1.0-4.8) k/uL ABG pCO2 (35-45) mmHg ABG pO2 (83-108) mmHg ABG HCO3 (21-25) mmol/L ABG Total CO2 (19-24) mmol/L Carbon Dioxide 36 H (22-30) mmol/L Creatinine 0.30 L (0.52-1.04) mg/dL Glucose 178 H (74-99) mg/dL POC Glucose (mg/dL) 167 H (75-99) mg/dL Calcium 8.0 L (8.4-10.2) mg/dL Microbiology - Last 24 Hours (Table) 03/29/19 12:16 Blood Culture - Preliminary Blood No Growth after 72 hours <[address] Lane - Last Filed: 04/02/19 15:21> Subjective As well. Had a discussion with the patient's family regarding tracheostomy and PEG tube placement. They feel somewhat rushed at this time. Yesterday evening they had canceled the procedure and the patient's Plavix and tube feeds were restarted. Today they changed their mind once again and were temporarily requesting the procedure to be performed. I discussed the case with anesthesia who required 6 hours nothing by mouth prior to proceeding. We discussed the increased risks of bleeding related to the Plavix use. We decided to hold off over the weekend. We'll continue weaning trials. If remains on the ventilator Friday will reschedule tracheostomy and PEG tube placement. Objective - Vital Signs Vital signs: Vital Signs Temp 98.6 F 04/02/19 12:00 Pulse 93 04/02/19 13:30 Resp 35 H 04/02/19 13:30 BP 124/79 04/02/19 12:30 Pulse Ox 89 L 04/02/19 13:30 Intake & Output 04/01/19 04/02/19 04/02/19 18:59 06:59 18:59 Intake Total 1029.196 0113.839 274.831 Output Total 593 565 50 Balance 1078.946 492.839 224.831 Weight 67.9 kg 67.9 kg Intake: IV 473 376 23 Cefepime 2 gm In Sodium 200 100 Chloride 0.9% 100 ml @ 200 mls/hr IVPB Q8HR [facility] Rx#:[id number] Pressure bag 33 36 3 Sodium Chloride 0.9% 1, 240 240 20 000 ml @ 20 mls/hr IV . Q24H [facility] Rx#:[id number] Intake, IV Titration 712.946 549.839 251.831 Amount Cefepime 2 gm In Sodium 100 Chloride 0.9% 100 ml @ 200 mls/hr IVPB Q8HR [facility] Rx#:[id number] Norepinephrine 8 mg In 252.614 378.226 140.050 Sodium Chloride 0.9% 250 ml @ 0.05 MCG/KG/MIN 5. 689 mls/hr IV .Q24H [facility] Rx#:[id number] Potassium Chloride 20 meq 100 In Water For Injection 1 100ml.bag @ 50 mls/hr IVPB Q2H [facility] Rx#: [id number] Propofol 1,000 mg In 260.332 171.613 111.781 Empty Bag 1 bag @ Titrate IV .Q0M [facility] Rx#: [id number] Tube Feeding 396 132 Other 90 Output: Urine 593 565 50 Other: Voiding Method Indwelling Catheter Indwelling Catheter Indwelling Catheter ABP, PAP, CO, CI - Last Documented Arterial Blood Pressure 98/55 - Labs CBC & Chem 7: 04/02/19 04:30 04/02/19 04:30 Labs: Abnormal Lab Results - Last 24 Hours (Table) 04/01/19 04/01/19 04/02/19 Range/Units 17:37 18:48 00:03 RBC (3.80-5.40) m/uL Hgb (11.4-16.0) gm/dL Hct (34.0-46.0) % MCHC (31.0-37.0) g/dL RDW (11.5-15.5) % Plt Count (150-450) k/uL Lymphocytes # (1.0-4.8) k/uL ABG pCO2 (35-45) mmHg ABG pO2 (83-108) mmHg ABG HCO3 (21-25) mmol/L ABG Total CO2 (19-24) mmol/L Carbon Dioxide (22-30) mmol/L Creatinine (0.52-1.04) mg/dL Glucose (74-99) mg/dL POC Glucose (mg/dL) 184 H 183 H 156 H (75-99) mg/dL Calcium (8.4-10.2) mg/dL 04/02/19 04/02/19 04/02/19 Range/Units 04:29 04:30 04:30 RBC 3.34 L (3.80-5.40) m/uL Hgb 8.8 L (11.4-16.0) gm/dL Hct 28.7 L (34.0-46.0) % MCHC 30.7 L (31.0-37.0) g/dL RDW 17.3 H (11.5-15.5) % Plt Count 133 L (150-450) k/uL Lymphocytes # 0.6 L (1.0-4.8) k/uL ABG pCO2 57 H (35-45) mmHg ABG pO2 73 L (83-108) mmHg ABG HCO3 36 H (21-25) mmol/L ABG Total CO2 38 H (19-24) mmol/L Carbon Dioxide 36 H (22-30) mmol/L Creatinine 0.30 L (0.52-1.04) mg/dL Glucose 178 H (74-99) mg/dL POC Glucose (mg/dL) (75-99) mg/dL Calcium 8.0 L (8.4-10.2) mg/dL 04/02/19 04/02/19 Range/Units 05:48 11:18 RBC (3.80-5.40) m/uL Hgb (11.4-16.0) gm/dL Hct (34.0-46.0) % MCHC (31.0-37.0) g/dL RDW (11.5-15.5) % Plt Count (150-450) k/uL Lymphocytes # (1.0-4.8) k/uL ABG pCO2 (35-45) mmHg ABG pO2 (83-108) mmHg ABG HCO3 (21-25) mmol/L ABG Total CO2 (19-24) mmol/L Carbon Dioxide (22-30) mmol/L Creatinine (0.52-1.04) mg/dL Glucose (74-99) mg/dL POC Glucose (mg/dL) 167 H 149 H (75-99) mg/dL Calcium (8.4-10.2) mg/dL Microbiology - Last 24 Hours (Table) 03/29/19 12:16 Blood Culture - Preliminary Blood No Growth after 96 hours
[2019-04-02] MEDS ORDERED: LORazepam 2 MG/ML INJ IV PRN (10:21)
--- NOTE | 2019-04-02 10:37 | PN ---
PROGRESS NOTE DATE OF SERVICE: 04/02/2019 Critical care time is 34 minutes. This is a 69-year-old female admitted back on March 27 for an episode of Proteus mirabilis urosepsis with pyelonephritis and nephrolithiasis. She was initially seen in the emergency room, went to the operating room from there were Dr. Gaona did a cystoscopy, removal of 5 mm right stone in the right ureter and stent placement. Patient was admitted to the ICU with a diagnosis of acute hypoxemic respiratory failure secondary to gram-negative sepsis and septic shock. The patient has a history of multiple medical problems including dementia, hypertension, anxiety, DJD, CAD, hyperlipidemia, as well as other medical problems. She remains on mechanical ventilator. Every day for the last 2 or 3 days now we have done daily interruptions of sedation. Unfortunately, she becomes very agitated. Her mental status is poor. When she becomes agitated, she becomes very tachypneic, tachycardic and hypertensive. The patient was a DNR, then made a FULL CODE and now made back to a DNR by the family members. I believe they do not want trach and PEG should it come to that. Currently, she is on the volume assist-control mode rate of 28, tidal volume 350, FiO2 of 60%, PEEP of 8. Blood gases show a pO2 of 73, a pCO2 of 57, and pH of 7.41. The patient is on propofol at 75 mcg/kg per minute, Levophed at 18 mcg/minute, 0.9 IV at 20 mL an hour and Vital high-protein at 33 with a goal of 33 mL an hour. She is going to have another daily interruption of sedation. She will get some Ativan during this time because apparently she did better on Ativan during a previous episode of respiratory failure when she was at [facility]. For the time being, the patient is a DNR. Current vital signs are reviewed. Temperature is 98 degrees, heart rate 84, respiratory rate is 28, blood pressure was 91/63 mean 72, and saturations are 95% on 60% and 8 of PEEP. Appears in no acute distress. HEENT: Examination is grossly unremarkable. There is an orally placed endotracheal tube and NG tube. NECK: Supple. Full range of motion. No adenopathy. Neck veins are flat. CARDIOVASCULAR: Examination reveals regular rhythm and rate. S1, S2 normal. No S3, S4, or murmur. LUNGS: Reveal a few scattered coarse bilateral rhonchi. Breath sounds are diminished. There are some crackles. Breath sounds equal. ABDOMEN: Soft. Bowel sounds are heard. EXTREMITIES: Intact. No cyanosis, clubbing, or edema. SKIN: Without rash. NEUROLOGIC: Examination is difficult to assess as she is currently sedated. Will attempt to re-evaluate her when her propofol . As mentioned, she is on Diprivan at 75 mcg/kg per minute, norepinephrine at 18 mcg/minute and 0.9 at 20 mL an hour and Vital high-protein at 32 with a goal of 33 mL an hour. LABS: Reviewed. White count 7.6, hemoglobin 8.8, hematocrit 28.7, platelet count 133,000. Blood gases have been noted. Sodium, potassium 142 and 3.5 respectively. Chloride is 105, CO2 is 36, anion gap 1. BUN and creatinine were 11 and 0.3. Microbiologic study show Proteus mirabilis multiple times and blood and urine. A chest x-ray shows diffuse bilateral infiltrates. They are somewhat improved. It has been consistent with pulmonary fibrosis and/or interstitial edema. There are bibasilar infiltrates. Pleural effusions might be present as well and would be relatively smaller. Medications are reviewed. All the data is reviewed. ASSESSMENT: 1. Acute hypoxemic respiratory failure secondary to gram-negative sepsis, caused by Proteus mirabilis urinary tract infection and Proteus mirabilis bacteremia with septic shock and subsequent intubation and mechanical ventilation on March 27. 2. Urinary tract infection with hydronephrosis, secondary to ureterolithiasis, status post cystoscopy and stent placement with removal of right-sided stone. 3. Acute gram-negative bacteremia. 4. Mild interstitial edema. 5. Spiculated left mid lung lesion. 6. History of dementia. 7. History of hypertension. 8. Degenerative joint disease. 9. Coronary artery disease. 10.Hyperlipidemia. 11.Failure to wean from mechanical ventilation. PLAN: Again, will do a daily interruption of sedation. As per the family's wish, will try some Ativan during the procedure to see if it settles her down a bit more. Currently, she remains on propofol at 75 mcg/kg per minute and norepinephrine at 18 mcg/minute. Her IV is 0.9 at 20. She is getting Vital high-protein at the tube feeds. Her gas exchange is reasonable. She is now a DNR again. Will continue to follow. Overall prognosis remains very poor. CRITICAL CARE TIME: 34 minutes. NIKI / PRABHAKAR: [id number] /
[2019-04-02 11:19] LABS: Glucose,Whole Blood 149 mg/dL (75-99)
[2019-04-02 11:50] LABS: INR 0.9 (<1.2); Prothrombin Time 9.8 sec (9.0-12.0)
[2019-04-02] MEDS ORDERED: LIDOCAINE 1% INJ 10MG/ML (20 ML MDV) ONE (12:08)
[2019-04-02] MEDS ORDERED: LIDOCAINE 1% INJ 10MG/ML (20 ML MDV) SQ ONE (12:36)
--- NOTE | 2019-04-02 13:03 | XR ---
EXAMINATION TYPE: XR chest 1V confirm line plcmt DATE OF EXAM: 04/02/2019 COMPARISON: 04/02/2019 HISTORY: 69-year-old female post PICC line placement. TECHNIQUE: Single frontal view of the chest is obtained. FINDINGS: ET and NG tubes are satisfactory. Right IJ CVC tip at the mid SVC level. Right PICC tip at the lower SVC level. Continued changes of COPD and likely interstitial edema with more confluent opacities at t he left mid and lower lung. Improving aeration of the right base. IMPRESSION: 1. Right PICC tip at the lower SVC. 2. COPD with changes suspected to represent interstitial pulmonary edema. Underlying left basilar inf iltrate difficult to exclude. Some improving aeration of the right base.
--- NOTE | 2019-04-02 16:19 | IR ---
EXAMINATION TYPE: IR cvc insert >=5 years DATE OF EXAM: 04/02/2019 COMPARISON: EXAMINATION TYPE: IR cvc insert >=5 years DATE OF EXAM: 04/02/2019 COMPARISON: NONE HISTORY: Bowel surgery, abscess, needs long-term intravenous access for total parenteral nutrition, a ntibiotics FINDINGS: Maximal barrier technique was utilized. The skin overlying the right brachial vein was loc alized with ultrasound and noted to be compressible and patent by ultrasound. An ultrasound image wa s obtained and submitted on patient's chart. Sterile technique utilized with the ultrasound machine. The skin overlying was prepped and draped and Lidocaine used for local anesthesia. A skin jermaine was m lelo with a scalpel. Access was gained to the vein under direct ultrasound guidance with a 21-gauge n eedle and a 0.018 inch wire was advanced. Access site was dilated with a peel-away sheath and the ca theter tailored to length. Catheter advanced centrally and a post procedure chest x-ray verified bertha cement. Catheter was fixed to the skin and a sterile dressing placed. Hemostasis achieved and the c atheter was aspirated and flushed with sterile saline. The patient remained in stable condition. IMPRESSION: STATUS POST ULTRASOUND GUIDED PICC LINE PLACEMENT, READY FOR USE. THIS PROCEDURE WAS PER FORMED BY THE UNDERSIGNED.
[2019-04-02 18:47] LABS: Glucose,Whole Blood 153 mg/dL (75-99)
--- NOTE | 2019-04-02 19:13 | P.PN ---
Subjective Mr. Patiño is a 69-year-old female with a past medical history of dementia, coronary artery disease, COPD, hypertension brought in via EMS for having a fall at home while trying to get up from the commode. Patient is intubated and in the ICU currently. So most of the history is obtained from the ED notes and nursing staff report. The patient has been weak and was not herself for the past 3 days, family thought that this was because of her dementia. But she became gradually weaker to the extent that she had a fall while trying to get up from the commode. Family reported that she has been having increased frequency of urination and also strong odor to the urine. At the time of admission patient was suppressed hypoxic and hypotensive. Patient was given 2 L of IV normal saline bolus and started on maintenance fluids. She also received a dose of vancomycin and cefepime empirically. Urine analysis was positive for large leukocyte esterase. CAT scan of the abdomen and pelvis was showing right-sided hydronephrosis and the distal 5 mm ureteral calculus. Urology Dr. Salgado was consulted. Last night patient had removal of the stone and a ureteral stent was placed. Patient's blood cultures were positive for Proteus. So vancomycin has been discontinued and cefepime is continued. Patient has history of COPD, so after the procedure the patient could not be extubated. 03/29/2019 pt is 69 yo F with pmh of HTN, HLP, Dementia, Coronary art disease found poor candidate for revascularization procedure, who presents with progressive weakness over 3 days and fall , pt remains intubated and sedated in ICU for septic shock , hydronephrosis with 5 mm kid stone s/p surgical removal and stent placement , she is been followed closely by critical care team , and urology . labs showing improving leukocytosis 20 down to 12.5 K , rest of cbc is stable, sugar controlled. UC: gram negative bacilli. pt is DNR. home medication were reconciled and adjusted per family who considered transferring pt. replace asa ,and plavix if ok with surgery team for her h/o cad. 03/30/2019 Patient remains in the ICU sedated and intubated. Patient felt a sedation holiday today as she got agitated breathing very fast and 50s. Patient placed back to sedation With propofol. Patient remains on cefepime for her UTI and sepsis. Her urine cultures came back positive for Proteus. Blood pressure 110/57. Labs are noted, electrolytes replaced. Aspirin and Plavix were restarted. Patient is on Aricept. Repeat EKG showing normal sinus rhythm at 85 with QTC not prolonged at 392 03/31/2019 Pt remains in the ICU in critical condition , she is intubated and sedated ,failed sedation holiday yesterday, she remains on cefepime and levophed for her septic shock. critical care team and following the case closely 04/01/2019 pt is in the ICU intubated and sedated . pt still needs levophed and she is on cefepime urologist recommended to c/w same management , while critical care team are planing for PEG and tracheostomy , surgical consult is called . 04/02/2019 pt remains in the icu intubated , family today cancelled her procedure of getting PEG tube and tracheostomy ,and they want further trial of weaning , pt is been followed closely by pulmonary and critical care team who manage her mechanical ventilation .Bp 98/55 . hemoglobin 8.8 and creatinine 0.3 Objective - Vital Signs Vital signs: Vital Signs Temp 98.6 F 04/02/19 12:00 Pulse 100 04/02/19 15:50 Resp 35 H 04/02/19 13:30 BP 124/79 04/02/19 12:30 Pulse Ox 89 L 04/02/19 13:30 Intake & Output 04/02/19 04/02/19 04/03/19 06:59 18:59 06:59 Intake Total 1057.839 363.050 Output Total 565 50 Balance 492.839 313.050 Weight 67.9 kg 67.9 kg Intake: IV 376 23 Cefepime 2 gm In Sodium 100 Chloride 0.9% 100 ml @ 200 mls/hr IVPB Q8HR [facility] Rx#:[id number] Pressure bag 36 3 Sodium Chloride 0.9% 1, 240 20 000 ml @ 20 mls/hr IV . Q24H [facility] Rx#:[id number] Intake, IV Titration 549.839 340.050 Amount Norepinephrine 8 mg In 378.226 140.050 Sodium Chloride 0.9% 250 ml @ 0.05 MCG/KG/MIN 5. 689 mls/hr IV .Q24H [facility] Rx#:[id number] Propofol 1,000 mg In 171.613 200.000 Empty Bag 1 bag @ Titrate IV .Q0M [facility] Rx#: [id number] Tube Feeding 132 Output: Urine 565 50 Other: Voiding Method Indwelling Catheter Indwelling Catheter ABP, PAP, CO, CI - Last Documented Arterial Blood Pressure 98/55 - Exam -GEN. APPEARANCE: Patient is mechanically ventilated and sedated HEAD EXAM: atraumatic, normocephalic, normal inspection. -ENT EXAM: OG-tube in place -RESPIRATORY EXAM: Coarse breath sounds positive with crackles. No wheezes CARDIOVASCULAR EXAM: S1-S2 heard no additional sounds GI/ABDOMINAL EXAM: soft, normal bowel sounds. EXTREMITIES EXAM: No pedal edema. BACK EXAM: normal inspection -NEUROLOGICAL EXAM: sedated SKIN EXAM: warm, dry, intact, normal color. Absent: rash - Labs CBC & Chem 7: 04/02/19 04:30 04/02/19 04:30 Labs: Abnormal Lab Results - Last 24 Hours (Table) 04/02/19 04/02/19 04/02/19 Range/Units 00:03 04:29 04:30 RBC 3.34 L (3.80-5.40) m/uL Hgb 8.8 L (11.4-16.0) gm/dL Hct 28.7 L (34.0-46.0) % MCHC 30.7 L (31.0-37.0) g/dL RDW 17.3 H (11.5-15.5) % Plt Count 133 L (150-450) k/uL Lymphocytes # 0.6 L (1.0-4.8) k/uL ABG pCO2 57 H (35-45) mmHg ABG pO2 73 L (83-108) mmHg ABG HCO3 36 H (21-25) mmol/L ABG Total CO2 38 H (19-24) mmol/L Carbon Dioxide (22-30) mmol/L Creatinine (0.52-1.04) mg/dL Glucose (74-99) mg/dL POC Glucose (mg/dL) 156 H (75-99) mg/dL Calcium (8.4-10.2) mg/dL 04/02/19 04/02/19 04/02/19 Range/Units 04:30 05:48 11:18 RBC (3.80-5.40) m/uL Hgb (11.4-16.0) gm/dL Hct (34.0-46.0) % MCHC (31.0-37.0) g/dL RDW (11.5-15.5) % Plt Count (150-450) k/uL Lymphocytes # (1.0-4.8) k/uL ABG pCO2 (35-45) mmHg ABG pO2 (83-108) mmHg ABG HCO3 (21-25) mmol/L ABG Total CO2 (19-24) mmol/L Carbon Dioxide 36 H (22-30) mmol/L Creatinine 0.30 L (0.52-1.04) mg/dL Glucose 178 H (74-99) mg/dL POC Glucose (mg/dL) 167 H 149 H (75-99) mg/dL Calcium 8.0 L (8.4-10.2) mg/dL 04/02/19 Range/Units 18:35 RBC (3.80-5.40) m/uL Hgb (11.4-16.0) gm/dL Hct (34.0-46.0) % MCHC (31.0-37.0) g/dL RDW (11.5-15.5) % Plt Count (150-450) k/uL Lymphocytes # (1.0-4.8) k/uL ABG pCO2 (35-45) mmHg ABG pO2 (83-108) mmHg ABG HCO3 (21-25) mmol/L ABG Total CO2 (19-24) mmol/L Carbon Dioxide (22-30) mmol/L Creatinine (0.52-1.04) mg/dL Glucose (74-99) mg/dL POC Glucose (mg/dL) 153 H (75-99) mg/dL Calcium (8.4-10.2) mg/dL Microbiology - Last 24 Hours (Table) 03/29/19 12:16 Blood Culture - Preliminary Blood No Growth after 96 hours Assessment and Plan Assessment: Septic shock - gram-negative sepsis - secondary to UTI with Proteus Acute hypoxic respiratory failure. Status post intubated, currently on mechanical ventilation Complicated urinary tract infection - right renal calculi causing obstruction. Status post stent placement hydronephrosis. Spiculated left hilar nodule - finding on the CAT scan of the chest Hypertension Dementia COPD Coronary artery disease Dyslipidemia Plan: Patient is on mechanical ventilation. Continue with pressor support to hold them map above 65. She is on cefepime for her gram-negative sepsis secondary to her UTI with Proteus. Patient had cystoscopy and removal of the right renal calculi and had ureteral stent placement. Blood cultures and urine cultures are reviewed. continue with current antibiotic. Patient has history of coronary a rtery disease and was evaluated for CABG but was deemed to be a poor candidate for so being managed medically. Overall prognosis is poor. Urology and [facility] following the patient. Further recommendations depending on the progress of the patient. cancel plan for PEG and tracheostomy per family request and possible more weaning trial as per ICU team
[2019-04-02] MEDS: ATORVASTATIN 80 MG TAB OG-TUBE SCH (21:18)
[2019-04-02] MEDS: risperiDONE 1 MG TAB PO SCH (21:18)
[2019-04-02] MEDS: traZODone HCL 50 MG TAB PO SCH (21:18)
[2019-04-03 00:08] LABS: Glucose,Whole Blood 145 mg/dL (75-99)
[2019-04-03] MEDS: HEPARIN SODIUM,PORCINE 5,000 UNIT/ML 1 ML VIAL SQ SCH ×4 (00:14→23:50)
[2019-04-03] MEDS: CEFEPIME 2 GM in SODIUM CHLORIDE 0.9% 100 ML IVPB SCH ×4 (00:14→23:50)
[2019-04-03] MEDS: INSULIN ASPART (NovoLOG) 100 UNIT/ML VIAL SQ SCH ×5 (00:14→23:55)
[2019-04-03] MEDS: MORPHINE SULFATE 2 MG/ML SYRINGE IV PRN (01:46)
[2019-04-03] MEDS: SODIUM CHLORIDE 0.9% 1,000 ML IV SCH ×2 (02:13→23:56)
[2019-04-03] MEDS: PROPOFOL 1,000 MG in EMPTY BAG 1 BAG IV SCH ×6 (03:00→23:50)
[2019-04-03] MEDS: IPRATROPIUM-ALBUTEROL 3 ML NEB INHALATION SCH ×6 (03:35→23:21)
[2019-04-03 04:21] LABS: ABG Base Excess 12.7 mmol/L; ABG HCO3 37 mmol/L (21-25); ABG Oxygen Saturation 94.5 % (94-97); ABG PCO2 59 mmHg (35-45); ABG PH 7.41 (7.35-7.45); ABG PO2 74 mmHg (83-108); ABG TCO2 39 mmol/L (19-24)
[2019-04-03 05:58] LABS: Anisocytosis Slight; Basophils % (A) 0 %; Eosinophils # (A) 0.2 k/uL (0-0.7); Eosinophils % (A) 3 %; HCT 28.6 % (34.0-46.0); HGB 8.9 gm/dL (11.4-16.0); Hypochromasia Slight; Lymphocytes # (A) 0.7 k/uL (1.0-4.8); Lymphocytes % (A) 12 %; MCHC 31.1 g/dL (31.0-37.0); MCV 86.8 fL (80.0-100.0); Mean Platelet Volume 7.7; Monocytes # (A) 0.2 k/uL (0-1.0); Monocytes % (A) 3 %; Neutrophils # (A) 4.5 k/uL (1.3-7.7); Neutrophils % (A) 78 %; Platelet Count 166 k/uL (150-450); RDW 17.4 % (11.5-15.5); WBC 5.7 k/uL (3.8-10.6)
[2019-04-03 06:20] LABS: Glucose,Whole Blood 167 mg/dL (75-99)
--- NOTE | 2019-04-03 06:41 | XR ---
EXAMINATION TYPE: XR chest 1V portable DATE OF EXAM: 04/03/2019 HISTORY: tube management. REFERENCE: Previous study dated 04/02/2019. FINDINGS: The patient is ET tube and NG tube remain in place, unchanged in appearance. A right basili c PICC line is in place. Its tip is in the superior vena cava. The lungs are overinflated. The heart is enlarged. There is evidence of interstitial change. I suspec t small, bilateral effusions. IMPRESSION: 1. COPD. 2. CARDIOMEGALY. 3. I COULD NOT EXCLUDE SOME DEGREE OF HEART FAILURE.
[2019-04-03 07:31] LABS: African American GFR (CKD) >90 (>60 ml/min/1.73 sqM); Anion Gap 3 mmol/L; Blood Urea Nitrogen 14 mg/dL (7-17); Calcium 8.8 mg/dL (8.4-10.2); Carbon Dioxide 35 mmol/L (22-30); Chloride 105 mmol/L (98-107); Glucose 178 mg/dL (74-99); Potassium 3.6 mmol/L (3.5-5.1); Sodium 143 mmol/L (137-145)
[2019-04-03] MEDS: MEMANTINE 10 MG TAB PO SCH (08:50)
[2019-04-03] MEDS: PANTOPRAZOLE 40 MG/10 ML VIAL IVP SCH (08:50)
[2019-04-03] MEDS: DONEPEZIL 10 MG TAB OG-TUBE SCH (08:50)
[2019-04-03] MEDS: CHLORHEXIDINE GLUCONATE 15 ML CUP MUCOUS MEM SCH ×2 (08:50→20:37)
[2019-04-03] MEDS ORDERED: LORazepam 2 MG/ML INJ IV PRN (09:47)
--- NOTE | 2019-04-03 11:12 | P.PN ---
Subjective Progress Note Date: 04/03/19 CHIEF COMPLAINT: Acute respiratory failure HISTORY OF PRESENT ILLNESS: The patient is a 69-year-old female presents to the hospital with sepsis including altered mental status. She has been vent dependent respiratory failure for over a week. Additionally, she has inadequate protein intake. She is on TPN. She is treated for urosepsis. Additionally, she has multiple medical comorbidities including COPD and dementia. She is on full mechanical ventilatory support. ROS: No fevers or chills. No reports of gastrointestinal bleed. PHYSICAL EXAM: VITAL SIGNS: Reviewed CONSTITUTIONAL: Well developed and in no acute distress. EYES: Conjuctivae without sclera icterus. Extraocular movements grossly intact. HEAD, EARS, NOSE, THROAT: Moist buccal mucosa. Head is atraumatic, normocephalic. No nasal drainage. NECK: Supple. No thyroidomegaly. RESPIRATORY: Non-labored respirations and equal bilateral excursions. On mechanical ventilation. CARDIOVASCULAR: Palpable 2+ radial pulses. ABDOMEN: Soft. No peritonitis. MUSCULOSKELETAL: No gross deformity of the lower extremities noted. 2+ bilateral upper and lower extremity edema. PRAFO boots. SKIN: Good skin turgor. Well perfused. NEUROLOGIC: No focal or lateralizing signs. PSYCH: Not alert. CLINCAL LABS: White blood cell count normal ASSESSMENT: 1. Acute ventilatory dependent respiratory failure 2. Inadequate protein nutrition PLAN: 1. Patient has respiratory and pulmonary compromise. 2. Trach and PEG advised and is pending. Objective - Vital Signs Vital signs: Vital Signs Temp 98.9 F 04/03/19 08:00 Pulse 88 04/03/19 11:06 Resp 36 H 04/03/19 09:00 BP 103/61 04/03/19 08:00 Pulse Ox 93 L 04/03/19 09:00 Intake & Output 04/02/19 04/03/19 04/03/19 18:59 06:59 18:59 Intake Total 3319.518 4279.603 280.934 Output Total 785 455 100 Balance 324.770 1911.603 180.934 Weight 67.9 kg 69.8 kg Intake: IV 476 376 169 Cefepime 2 gm In Sodium 200 100 100 Chloride 0.9% 100 ml @ 200 mls/hr IVPB Q8HR [facility] Rx#:[id number] Pressure bag, 0.9% 36 36 9 Sodium Chloride 0.9% 1, 240 240 60 000 ml @ 20 mls/hr IV . Q24H [facility] Rx#:[id number] Intake, IV Titration 340.050 601.603 78.934 Amount Norepinephrine 8 mg In 140.050 202.299 Sodium Chloride 0.9% 250 ml @ 0.05 MCG/KG/MIN 5. 689 mls/hr IV .Q24H [facility] Rx#:[id number] Propofol 1,000 mg In 200.000 399.304 78.934 Empty Bag 1 bag @ Titrate IV .Q0M [facility] Rx#: [id number] Tube Feeding 363 396 33 Other 90 90 Output: Urine 785 455 100 Other: Voiding Method Indwelling Catheter Indwelling Catheter ABP, PAP, CO, CI - Last Documented Arterial Blood Pressure 94/51 - Labs CBC & Chem 7: 04/04/19 04:00 04/04/19 10:43 Labs: Abnormal Lab Results - Last 24 Hours (Table) 04/02/19 04/02/19 04/02/19 Range/Units 11:18 18:35 23:57 RBC (3.80-5.40) m/uL Hgb (11.4-16.0) gm/dL Hct (34.0-46.0) % RDW (11.5-15.5) % Lymphocytes # (1.0-4.8) k/uL ABG pCO2 (35-45) mmHg ABG pO2 (83-108) mmHg ABG HCO3 (21-25) mmol/L ABG Total CO2 (19-24) mmol/L Carbon Dioxide (22-30) mmol/L Creatinine (0.52-1.04) mg/dL Glucose (74-99) mg/dL POC Glucose (mg/dL) 149 H 153 H 145 H (75-99) mg/dL 04/03/19 04/03/19 04/03/19 Range/Units 04:17 05:30 05:30 RBC 3.30 L (3.80-5.40) m/uL Hgb 8.9 L (11.4-16.0) gm/dL Hct 28.6 L (34.0-46.0) % RDW 17.4 H (11.5-15.5) % Lymphocytes # 0.7 L (1.0-4.8) k/uL ABG pCO2 59 H (35-45) mmHg ABG pO2 74 L (83-108) mmHg ABG HCO3 37 H (21-25) mmol/L ABG Total CO2 39 H (19-24) mmol/L Carbon Dioxide 35 H (22-30) mmol/L Creatinine 0.35 L (0.52-1.04) mg/dL Glucose 178 H (74-99) mg/dL POC Glucose (mg/dL) (75-99) mg/dL 04/03/19 Range/Units 06:08 RBC (3.80-5.40) m/uL Hgb (11.4-16.0) gm/dL Hct (34.0-46.0) % RDW (11.5-15.5) % Lymphocytes # (1.0-4.8) k/uL ABG pCO2 (35-45) mmHg ABG pO2 (83-108) mmHg ABG HCO3 (21-25) mmol/L ABG Total CO2 (19-24) mmol/L Carbon Dioxide (22-30) mmol/L Creatinine (0.52-1.04) mg/dL Glucose (74-99) mg/dL POC Glucose (mg/dL) 167 H (75-99) mg/dL Microbiology - Last 24 Hours (Table) 04/02/19 17:00 Catheter Tip Culture - Preliminary Catheter Tip 03/29/19 12:16 Blood Culture - Preliminary Blood No Growth after 96 hours Assessment and Plan (1) Acute pyelonephritis Current Visit: Yes Status: Acute Code(s): N10 - ACUTE PYELONEPHRITIS SNOMED Code(s): 09555403 (2) Altered mental status Current Visit: Yes Status: Acute Code(s): R41.82 - ALTERED MENTAL STATUS, UNSPECIFIED SNOMED Code(s): 265392335 (3) Respiratory failure Current Visit: Yes Status: Acute Code(s): J96.90 - RESPIRATORY FAILURE, UNSP, UNSP W HYPOXIA OR HYPERCAPNIA SNOMED Code(s): 253723434 (4) Sepsis Current Visit: Yes Status: Acute Code(s): A41.9 - SEPSIS, UNSPECIFIED ORG ANISM SNOMED Code(s): 30237787 (5) Dementia Current Visit: Yes Status: Acute Code(s): F03.90 - UNSPECIFIED DEMENTIA WITHOUT BEHAVIORAL DISTURBANCE SNOMED Code(s): 11559691
[2019-04-03 12:05] LABS: Glucose,Whole Blood 147 mg/dL (75-99)
[2019-04-03] MEDS: NYSTATIN 100,000 UNIT/ML SUSP 500,000 UNIT/5 ML CUP PO SCH ×3 (12:22→20:40)
--- NOTE | 2019-04-03 12:29 | PN ---
PROGRESS NOTE DATE OF SERVICE: 04/03/2019 Critical care time 32 minutes. This is a 69-year-old female admitted back on March 27 for an episode of Proteus mirabilis urosepsis with pyelonephritis and nephrolithiasis. She was seen in the emergency room initially. Transported to the operating room where Dr. Gaona did a cystoscopy, removal of a 5 mm stone in her right ureter and placed a stent in her right ureter. The patient was admitted to the ICU with a diagnosis of acute hypoxemic respiratory failure secondary to gram-negative sepsis and septic shock. The patient has a history of multiple medical problems. Nonetheless, she remains on mechanical ventilator. The family has gone back and forth between FULL CODE and NO CODE. They cannot seem to make up their mind. She was all set for a tracheostomy and PEG tube placement on Friday, but at the last minute the patient's family canceled. Anyway, currently she is a DNR. They are still considering a tracheostomy and PEG tube placement. She is currently on the volume assist-control mode rate of 28, tidal volume 350, FiO2 60%, PEEP of 8. Blood gases show pO2 of 74, pCO2 of 59, pH 7.40. Drips include propofol at 75 mcg/kg per minute, norepinephrine at 9 mcg/minute 0.9 at 20 mL an hour and Vital high-protein at 33 with a goal of 33 mL an hour. Yesterday she had a PICC line placed. In addition, because the family mentioned that she seems to respond favorably in terms of mental status changes to Ativan, during the daily interruption of sedation yesterday, we did give her 1 mg of Ativan. It did not seem to help. Again, she became very tachypneic. Her respiratory rate went up to 50. Heart rate did jump significantly as did her blood pressure. She just looked very uncomfortable and she was placed back on propofol. We will try again today similarly. PHYSICAL EXAMINATION: VITAL SIGNS: Currently, vital signs are reviewed. Temperature 98.9, heart rate 85, respiratory rate 36, blood pressure 103/61, mean 75 and saturations are 93% on the 60% and PEEP of 8. HEENT examination is grossly unremarkable. There is an orally placed endotracheal tube and NG tube. NECK: Supple. Full range of motion. No adenopathy or thyromegaly. Neck veins are flat. CARDIOVASCULAR examination reveals regular rhythm and rate. Heart rate 85. S1, S2 normal. LUNGS: Coarse rhonchi throughout. There are some crackles at the bases. Breath sounds equal but diminished throughout. ABDOMEN: Soft. Bowel sounds are heard. EXTREMITIES are intact. No edema. Skin without rash. NEUROLOGIC examination could not be adequately assessed as the patient is quite sedated. Microbiologic data includes additional Proteus mirabilis cultures on March 27 from blood and urine. We have mentioned this all along. In addition, labs reviewed. White count 5.7, hemoglobin 8.9, hematocrit 28.6, platelet count normal. Sodium 143, potassium 3.6, chloride 105, CO2 of 35. BUN and creatinine were 14 and 0.35. Chest x-ray shows changes consistent with possible underlying heart failure. Medications are reviewed. She is currently on Maxipime for her Proteus mirabilis urinary tract infection/sepsis. The rest of the medications are reviewed and appear to be appropriate. Chest x-rays reviewed. Medications are reviewed. Problem list is reviewed. ASSESSMENT: 1. Acute hypoxemic respiratory failure secondary to gram-negative sepsis caused by Proteus mirabilis urinary tract infection and Proteus mirabilis bacteremia with septic shock and subsequent intubation and mechanical ventilation on March 27. 2. Urinary tract infection with hydronephrosis secondary to ureterolithiasis, status post cystoscopy and stent placement and removal of a right-sided stone. 3. Acute gram-negative bacteremia. 4. Mild interstitial edema. 5. Spiculated left mid lung lesion, to be evaluated as an outpatient. 6. History of dementia. 7. History of hypertension. 8. Degenerative joint disease. 9. Coronary artery disease. 10.Hyperlipidemia. 11.Failure to wean from mechanical ventilation. PLAN: Again, the family keeps on going back and forth between FULL CODE and NO CODE. They are not sure whether or not they want this patient to have a tracheostomy and PEG tube placed. They will let us know in next sometime next week. The patient continues to have daily interruptions of sedation. During those periods of time, she becomes very agitated. She becomes quite tachypneic and tachycardic and hypertensive. Yesterday, we tried Ativan as per the family's request without benefit. Her medications include Diprivan, norepinephrine at 9 mics per minute and her tube feeds with Vital high- protein at 33, which is goal. Labs reviewed. Medications reviewed. Blood gases reviewed. We will continue to follow. Prognosis is guarded. I explained that in detail to the family. She is a DNR. Critical care time 32 minutes. NIKI / PRABHAKAR: [id number] /
[2019-04-03] MEDS: NOREPINEPHRINE 8 MG in SODIUM CHLORIDE 0.9% 250 ML IV SCH (18:24)
[2019-04-03 18:26] LABS: Glucose,Whole Blood 135 mg/dL (75-99)
--- NOTE | 2019-04-03 20:12 | P.PN ---
Subjective Mr. Patiño is a 69-year-old female with a past medical history of dementia, coronary artery disease, COPD, hypertension brought in via EMS for having a fall at home while trying to get up from the commode. Patient is intubated and in the ICU currently. So most of the history is obtained from the ED notes and nursing staff report. The patient has been weak and was not herself for the past 3 days, family thought that this was because of her dementia. But she became gradually weaker to the extent that she had a fall while trying to get up from the commode. Family reported that she has been having increased frequency of urination and also strong odor to the urine. At the time of admission patient was suppressed hypoxic and hypotensive. Patient was given 2 L of IV normal saline bolus and started on maintenance fluids. She also received a dose of vancomycin and cefepime empirically. Urine analysis was positive for large leukocyte esterase. CAT scan of the abdomen and pelvis was showing right-sided hydronephrosis and the distal 5 mm ureteral calculus. Urology Dr. Salgado was consulted. Last night patient had removal of the stone and a ureteral stent was placed. Patient's blood cultures were positive for Proteus. So vancomycin has been discontinued and cefepime is continued. Patient has history of COPD, so after the procedure the patient could not be extubated. 03/29/2019 pt is 69 yo F with pmh of HTN, HLP, Dementia, Coronary art disease found poor candidate for revascularization procedure, who presents with progressive weakness over 3 days and fall , pt remains intubated and sedated in ICU for septic shock , hydronephrosis with 5 mm kid stone s/p surgical removal and stent placement , she is been followed closely by critical care team , and urology . labs showing improving leukocytosis 20 down to 12.5 K , rest of cbc is stable, sugar controlled. UC: gram negative bacilli. pt is DNR. home medication were reconciled and adjusted per family who considered transferring pt. replace asa ,and plavix if ok with surgery team for her h/o cad. 03/30/2019 Patient remains in the ICU sedated and intubated. Patient felt a sedation holiday today as she got agitated breathing very fast and 50s. Patient placed back to sedation With propofol. Patient remains on cefepime for her UTI and sepsis. Her urine cultures came back positive for Proteus. Blood pressure 110/57. Labs are noted, electrolytes replaced. Aspirin and Plavix were restarted. Patient is on Aricept. Repeat EKG showing normal sinus rhythm at 85 with QTC not prolonged at 392 03/31/2019 Pt remains in the ICU in critical condition , she is intubated and sedated ,failed sedation holiday yesterday, she remains on cefepime and levophed for her septic shock. critical care team and following the case closely 04/01/2019 pt is in the ICU intubated and sedated . pt still needs levophed and she is on cefepime urologist recommended to c/w same management , while critical care team are planing for PEG and tracheostomy , surgical consult is called . 04/02/2019 pt remains in the icu intubated , family today cancelled her procedure of getting PEG tube and tracheostomy ,and they want further trial of weaning , pt is been followed closely by pulmonary and critical care team who manage her mechanical ventilation .Bp 98/55 . hemoglobin 8.8 and creatinine 0.3 06/03/2019 pt is in ICU , intubated and sedated , critical care team and managing the vent for the pt . family are still deciding about the plan of care. surgery team are on the case for possible PEG and tracheotomy as pt keep failing off sedation trial Objective - Vital Signs Vital signs: Vital Signs Temp 99.6 F 04/03/19 16:00 Pulse 88 04/03/19 19:18 Resp 21 04/03/19 19:18 BP 143/75 04/03/19 12:30 Pulse Ox 93 L 04/03/19 19:00 Intake & Output 04/03/19 04/03/19 04/04/19 06:59 18:59 06:59 Intake Total 1463.603 885.879 53 Output Total 455 568 45 Balance 1008.603 317.879 8 Weight 69.8 kg Intake: IV 376 476 20 Cefepime 2 gm In Sodium 100 200 Chloride 0.9% 100 ml @ 200 mls/hr IVPB Q8HR [facility] Rx#:[id number] Pressure bag, 0.9% 36 36 Sodium Chloride 0.9% 1, 240 240 20 000 ml @ 20 mls/hr IV . Q24H [facility] Rx#:[id number] Intake, IV Titration 601.603 211.879 Amount Norepinephrine 8 mg In 202.299 32.945 Sodium Chloride 0.9% 250 ml @ 0.05 MCG/KG/MIN 5. 689 mls/hr IV .Q24H [facility] Rx#:[id number] Propofol 1,000 mg In 399.304 178.934 Empty Bag 1 bag @ Titrate IV .Q0M [facility] Rx#: [id number] Tube Feeding 396 198 33 Other 90 Output: Urine 455 568 45 Other: Voiding Method Indwelling Catheter Indwelling Catheter ABP, PAP, CO, CI - Last Documented Arterial Blood Pressure 110/56 - Exam -GEN. APPEARANCE: Patient is mechanically ventilated and sedated HEAD EXAM: atraumatic, normocephalic, normal inspection. -ENT EXAM: OG-tube in place -RESPIRATORY EXAM: Coarse breath sounds positive with crackles. No wheezes CARDIOVASCULAR EXAM: S1-S2 heard no additional sounds GI/ABDOMINAL EXAM: soft, normal bowel sounds. EXTREMITIES EXAM: No pedal edema. BACK EXAM: normal inspection -NEUROLOGICAL EXAM: sedated SKIN EXAM: warm, dry, intact, normal color. Absent: rash - Labs CBC & Chem 7: 04/03/19 05:30 04/03/19 12:47 Labs: Abnormal Lab Results - Last 24 Hours (Table) 04/02/19 04/03/19 04/03/19 Range/Units 23:57 04:17 05:30 RBC 3.30 L (3.80-5.40) m/uL Hgb 8.9 L (11.4-16.0) gm/dL Hct 28.6 L (34.0-46.0) % RDW 17.4 H (11.5-15.5) % Lymphocytes # 0.7 L (1.0-4.8) k/uL ABG pCO2 59 H (35-45) mmHg ABG pO2 74 L (83-108) mmHg ABG HCO3 37 H (21-25) mmol/L ABG Total CO2 39 H (19-24) mmol/L Carbon Dioxide (22-30) mmol/L Creatinine (0.52-1.04) mg/dL Glucose (74-99) mg/dL POC Glucose (mg/dL) 145 H (75-99) mg/dL 04/03/19 04/03/19 04/03/19 Range/Units 05:30 06:08 11:54 RBC (3.80-5.40) m/uL Hgb (11.4-16.0) gm/dL Hct (34.0-46.0) % RDW (11.5-15.5) % Lymphocytes # (1.0-4.8) k/uL ABG pCO2 (35-45) mmHg ABG pO2 (83-108) mmHg ABG HCO3 (21-25) mmol/L ABG Total CO2 (19-24) mmol/L Carbon Dioxide 35 H (22-30) mmol/L Creatinine 0.35 L (0.52-1.04) mg/dL Glucose 178 H (74-99) mg/dL POC Glucose (mg/dL) 167 H 147 H (75-99) mg/dL 04/03/19 Range/Units 18:14 RBC (3.80-5.40) m/uL Hgb (11.4-16.0) gm/dL Hct (34.0-46.0) % RDW (11.5-15.5) % Lymphocytes # (1.0-4.8) k/uL ABG pCO2 (35-45) mmHg ABG pO2 (83-108) mmHg ABG HCO3 (21-25) mmol/L ABG Total CO2 (19-24) mmol/L Carbon Dioxide (22-30) mmol/L Creatinine (0.52-1.04) mg/dL Glucose (74-99) mg/dL POC Glucose (mg/dL) 135 H (75-99) mg/dL Microbiology - Last 24 Hours (Table) 03/29/19 12:16 Blood Culture - Preliminary Blood No Growth after 120 hours 04/02/19 17:00 Catheter Tip Culture - Preliminary Catheter Tip Assessment and Plan Assessment: Septic shock - gram-negative sepsis - secondary to UTI with Proteus Acute hypoxic respiratory failure. Status post intubated, currently on mechanical ventilation Complicated urinary tract infection - right renal calculi causing obstruction. Status post stent placement hydronephrosis. Spiculated left hilar nodule - finding on the CAT scan of the chest Hypertension Dementia COPD Coronary artery disease Dyslipidemia Plan: Patient is on mechanical ventilation. Continue with pressor support to hold them map above 65. She is on cefepime for her gram-negative sepsis secondary to her UTI with Proteus. Patient had cystoscopy and removal of the right renal calculi and had ureteral stent placement. Blood cultures and urine cultures are reviewed. continue with current antibiotic. Patient has history of coronary artery disease and was evaluated for CABG but was deemed to be a poor candidate for so being managed medically. Overall prognosis is poor. Urology and Fashion Journalist following the patient. Further recommendations depending on the progress of the patient. cancel plan for PEG and tracheostomy per family request and possible more weaning trial as per ICU team
[2019-04-03] MEDS: risperiDONE 1 MG TAB PO SCH (20:37)
[2019-04-03] MEDS: traZODone HCL 50 MG TAB PO SCH (20:37)
[2019-04-03] MEDS: ATORVASTATIN 80 MG TAB OG-TUBE SCH (20:39)
[2019-04-04 00:06] LABS: Glucose,Whole Blood 135 mg/dL (75-99)
[2019-04-04] MEDS: PROPOFOL 1,000 MG in EMPTY BAG 1 BAG IV SCH ×6 (03:00→18:27)
[2019-04-04] MEDS: IPRATROPIUM-ALBUTEROL 3 ML NEB INHALATION SCH ×6 (03:17→23:00)
[2019-04-04 04:24] LABS: Anisocytosis Slight; Basophils % (A) 0 %; Eosinophils # (A) 0.1 k/uL (0-0.7); Eosinophils % (A) 2 %; HCT 26.7 % (34.0-46.0); HGB 8.4 gm/dL (11.4-16.0); Hypochromasia Slight; Lymphocytes # (A) 0.8 k/uL (1.0-4.8); Lymphocytes % (A) 14 %; MCH 26.9 pg (25.0-35.0); MCHC 31.5 g/dL (31.0-37.0); MCV 85.3 fL (80.0-100.0); Mean Platelet Volume 7.6; Monocytes # (A) 0.2 k/uL (0-1.0); Monocytes % (A) 3 %; Neutrophils # (A) 4.5 k/uL (1.3-7.7); Neutrophils % (A) 78 %; Platelet Count 195 k/uL (150-450); RBC 3.13 m/uL (3.80-5.40); RDW 17.5 % (11.5-15.5); WBC 5.8 k/uL (3.8-10.6)
[2019-04-04 04:38] LABS: African American GFR (CKD) >90 (>60 ml/min/1.73 sqM); Anion Gap 2 mmol/L; Blood Urea Nitrogen 14 mg/dL (7-17); Calcium 8.3 mg/dL (8.4-10.2); Carbon Dioxide 38 mmol/L (22-30); Chloride 103 mmol/L (98-107); Glucose 162 mg/dL (74-99); Potassium 3.1 mmol/L (3.5-5.1); Sodium 143 mmol/L (137-145)
[2019-04-04] MEDS ORDERED: Potassium Replacement Protocol 1 EACH MISC MISCELLANE PRN (04:43)
[2019-04-04 04:50] LABS: ABG Base Excess 13.6 mmol/L; ABG HCO3 38 mmol/L (21-25); ABG Oxygen Saturation 96.9 % (94-97); ABG PCO2 61 mmHg (35-45); ABG PH 7.41 (7.35-7.45); ABG PO2 89 mmHg (83-108); ABG TCO2 40 mmol/L (19-24)
[2019-04-04] MEDS: POTASSIUM BICARBONATE/CIT AC 20 MEQ TABLET.EFF NG-TUBE SCH ×2 (04:56→05:58)
--- NOTE | 2019-04-04 06:00 | XR ---
EXAMINATION TYPE: XR chest 1V DATE OF EXAM: 04/04/2019 HISTORY: intubated. REFERENCE: Previous study dated 04/03/2019. FINDINGS: The patient is ET tube, NG tube and right basilic PICC line remain in place, unchanged in a ppearance. Lungs are overinflated. There is diffuse interstitial and alveolar airspace disease. This is most con fluent at the left lung base. There is a left-sided effusion. The heart is enlarged. IMPRESSION: SLIGHT WORSENING IN THE APPEARANCE OF THE CHEST.
[2019-04-04] MEDS: INSULIN ASPART (NovoLOG) 100 UNIT/ML VIAL SQ SCH ×4 (06:01→23:34)
[2019-04-04 06:12] LABS: Glucose,Whole Blood 154 mg/dL (75-99)
[2019-04-04] MEDS: HEPARIN SODIUM,PORCINE 5,000 UNIT/ML 1 ML VIAL SQ SCH ×3 (08:19→23:30)
[2019-04-04] MEDS: CEFEPIME 2 GM in SODIUM CHLORIDE 0.9% 100 ML IVPB SCH ×3 (08:19→23:30)
[2019-04-04] MEDS: NYSTATIN 100,000 UNIT/ML SUSP 500,000 UNIT/5 ML CUP PO SCH ×4 (08:20→20:36)
[2019-04-04] MEDS: PANTOPRAZOLE 40 MG/10 ML VIAL IVP SCH (08:20)
[2019-04-04] MEDS: CHLORHEXIDINE GLUCONATE 15 ML CUP MUCOUS MEM SCH ×2 (08:20→20:36)
[2019-04-04] MEDS: DONEPEZIL 10 MG TAB OG-TUBE SCH (08:21)
[2019-04-04] MEDS: MEMANTINE 10 MG TAB PO SCH (08:21)
--- NOTE | 2019-04-04 08:24 | P.PN ---
Subjective Progress Note Date: 04/04/19 CHIEF COMPLAINT: Acute respiratory failure HISTORY OF PRESENT ILLNESS: The patient is a 69-year-old female who presented to the hospital with sepsis including altered mental status. She is on full mechani vi ventilatory support. Her status is unchanged as she is still on full ventilatory support. ROS: No fevers or chills. No reports of gastrointestinal bleed. PHYSICAL EXAM: VITAL SIGNS: Reviewed CONSTITUTIONAL: Well developed and in no acute distress. EYES: Conjuctivae without sclera icterus. Extraocular movements grossly intact. HEAD, EARS, NOSE, THROAT: Moist buccal mucosa. Head is atraumatic, normocephalic. No nasal drainage. NECK: Supple. No thyroidomegaly. RESPIRATORY: Non-labored respirations and equal bilateral excursions. On mechanical ventilation. CARDIOVASCULAR: Palpable 2+ radial pulses. ABDOMEN: Soft. No peritonitis. MUSCULOSKELETAL: No gross deformity of the lower extremities noted. Has moderate 2 to 3+ upper and lower extremity edema. SKIN: Good skin turgor. Well perfused. NEUROLOGIC: No focal or lateralizing signs. PSYCH: Not alert. Not responsive to commands. CLINCAL LABS: White blood cell count normal ASSESSMENT: 1. Acute ventilatory dependent respiratory failure 2. Inadequate protein nutrition PLAN: 1. Pending trach and PEG. 2. Pending ICU assessment for code Status. 3. Continue TPN Objective - Vital Signs Vital signs: Vital Signs Temp 98.8 F 04/04/19 08:00 Pulse 91 04/04/19 08:00 Resp 33 H 04/04/19 08:00 BP 143/75 04/04/19 07:30 Pulse Ox 92 L 04/04/19 08:00 Intake & Output 04/03/19 04/04/19 04/04/19 18:59 06:59 18:59 Intake Total 907.852 8618.951 212 Output Total 568 850 96 Balance 417.879 331.951 116 Weight 70.9 kg Intake: IV 476 373 146 Cefepime 2 gm In Sodium 200 100 100 Chloride 0.9% 100 ml @ 200 mls/hr IVPB Q8HR [facility] Rx#:[id number] Pressure bag, 0.9% 36 33 6 Sodium Chloride 0.9% 1, 240 240 40 000 ml @ 20 mls/hr IV . Q24H [facility] Rx#:[id number] Intake, IV Titration 311.879 322.951 Amount Norepinephrine 8 mg In 32.945 65.083 Sodium Chloride 0.9% 250 ml @ 0.05 MCG/KG/MIN 5. 689 mls/hr IV .Q24H [facility] Rx#:[id number] Propofol 1,000 mg In 278.934 257.868 Empty Bag 1 bag @ Titrate IV .Q0M [facility] Rx#: [id number] Tube Feeding 198 396 66 Other 90 Output: Urine 568 850 96 Other: Voiding Method Indwelling Catheter Indwelling Catheter Indwelling Catheter ABP, PAP, CO, CI - Last Documented Arterial Blood Pressure 91/54 - Labs CBC & Chem 7: 04/04/19 04:00 04/04/19 10:43 Labs: Abnormal Lab Results - Last 24 Hours (Table) 04/03/19 04/03/19 04/03/19 Range/Units 11:54 18:14 23:55 RBC (3.80-5.40) m/uL Hgb (11.4-16.0) gm/dL Hct (34.0-46.0) % RDW (11.5-15.5) % Lymphocytes # (1.0-4.8) k/uL ABG pCO2 (35-45) mmHg ABG HCO3 (21-25) mmol/L ABG Total CO2 (19-24) mmol/L Potassium (3.5-5.1) mmol/L Carbon Dioxide (22-30) mmol/L Creatinine (0.52-1.04) mg/dL Glucose (74-99) mg/dL POC Glucose (mg/dL) 147 H 135 H 135 H (75-99) mg/dL Calcium (8.4-10.2) mg/dL 04/04/19 04/04/19 04/04/19 Range/Units 04:00 04:00 04:46 RBC 3.13 L (3.80-5.40) m/uL Hgb 8.4 L (11.4-16.0) gm/dL Hct 26.7 L (34.0-46.0) % RDW 17.5 H (11.5-15.5) % Lymphocytes # 0.8 L (1.0-4.8) k/uL ABG pCO2 61 H (35-45) mmHg ABG HCO3 38 H (21-25) mmol/L ABG Total CO2 40 H (19-24) mmol/L Potassium 3.1 L (3.5-5.1) mmol/L Carbon Dioxide 38 H (22-30) mmol/L Creatinine 0.29 L (0.52-1.04) mg/dL Glucose 162 H (74-99) mg/dL POC Glucose (mg/dL) (75-99) mg/dL Calcium 8.3 L (8.4-10.2) mg/dL 04/04/19 Range/Units 06:01 RBC (3.80-5.40) m/uL Hgb (11.4-16.0) gm/dL Hct (34.0-46.0) % RDW (11.5-15.5) % Lymphocytes # (1.0-4.8) k/uL ABG pCO2 (35-45) mmHg ABG HCO3 (21-25) mmol/L ABG Total CO2 (19-24) mmol/L Potassium (3.5-5.1) mmol/L Carbon Dioxide (22-30) mmol/L Creatinine (0.52-1.04) mg/dL Glucose (74-99) mg/dL POC Glucose (mg/dL) 154 H (75-99) mg/dL Calcium (8.4-10.2) mg/dL Microbiology - Last 24 Hours (Table) 03/29/19 12:16 Blood Culture - Preliminary Blood No Growth after 120 hours Assessment and Plan (1) Protein malnutrition Current Visit: Yes Status: Acute Code(s): E46 - UNSPECIFIED PROTEIN-CALORIE MALNUTRITION SNOMED Code(s): 077276140 (2) Acute pyelonephritis Current Visit: Yes Status: Acute Code(s): N10 - ACUTE PYELONEPHRITIS SNOMED Code(s): 52143830 (3) Altered mental status Current Visit: Yes Status: Acute Code(s): R41.82 - ALTERED MENTAL STATUS, UNSPECIFIED SNOMED Code(s): 633997022 (4) Dementia Current Visit: Yes Status: Acute Code(s): F03.90 - UNSPECIFIED DEMENTIA WITHOUT BEHAVIORAL DISTURBANCE SNOMED Code(s): 16933240 (5) Pneumonia Current Visit: Yes Status: Acute Code(s): J18.9 - PNEUMONIA, UNSPECIFIED ORGANISM SNOMED Code(s): 139143230 (6) Respiratory failure Current Visit: Yes Status: Acute Code(s): J96.90 - RESPIRATORY FAILURE, UNSP, UNSP W HYPOXIA OR HYPERCAPNIA SNOMED Code(s): 316510550
[2019-04-04] MEDS ORDERED: LORazepam 2 MG/ML INJ IV STA (09:28)
--- NOTE | 2019-04-04 10:11 | PN ---
PROGRESS NOTE DATE OF SERVICE: 04/04/2019 Critical care time 34 minutes. This is is a 69-year-old female admitted back on March 27 for an episode of Proteus mirabilis urosepsis with pyelonephritis and nephrolithiasis. She was seen in the emergency room initially. She was transported to the operating room by Dr. Gaona today for cystoscopy and removal of a 5 mm stone in her right ureter and placed a stent in her right ureter. The patient was admitted then to the ICU with a diagnosis of acute hypoxemic respiratory failure secondary gram-negative sepsis and septic shock. The patient has a history of multiple medical problems. Anyway, she has not made much progress here in the ICU. We have been doing daily interruptions of sedation. When we do, she becomes very agitated and restless. Her respiratory rate climbed up into the mid 40s. Heart rate goes up above 120 and blood pressure goes above 180 systolic. For those reasons, we ended up resedating the patient. The family members even suggested the use of Ativan as a way to calm her down during these episodes. We have tried that without benefit. The family is also going back and forth between code status. She initially was in NO CODE and made a FULL CODE back to a NO CODE and back to FULL CODE and now again back to a DNR. Currently, she is on the volume assist-control mode rate of 28, tidal volume 350, FiO2 60%, PEEP is 8, will be increased to 12. Her blood gases show a pO2 of 89 and pCO2 of 61 and a pH 7.41. We will see if by increasing the PEEP, if we cannot drop the FiO2 a bit. She is on propofol at 75 mcg/kg per minute, norepinephrine at 9 mcg/minute 0.9 at 20 mL an hour and Vital high-protein at 30 mL an hours with a goal of 30 mL an hour. She was to have a trach and PEG on Friday, but at the last minute, family decided not to do that. PHYSICAL EXAMINATION: VITAL SIGNS: Current vital signs are reviewed. Temperature is 98.8. Heart rate 85. Respiratory rate is about 32 breaths per minute. Blood pressure 113/62. Saturations between 92-94 percent. GENERAL: Appears in no acute distress. Currently sedated. HEENT examination is grossly unremarkable. There is an orally placed endotracheal tube and NG tube. NECK: Supple. Full range of motion. No adenopathy. CARDIOVASCULAR examination reveals regular rhythm and rate. Heart rate about 90 beats per minute. Currently. S1, S2 normal. No murmur. LUNGS: Pulmonary examination reveals coarse breath sounds. Breath sounds equal bilaterally. A few scattered crackles. No wheezes. ABDOMEN is soft. Bowel sounds are heard. EXTREMITIES are intact. Minimal edema. No cyanosis clubbing. SKIN without rash. NEUROLOGIC examination could not be done adequately because the patient is currently heavily sedated. Microbiology shows Proteus mirabilis in the blood and urine back on March 27. A chest x-ray is done today. It shows diffuse bilateral infiltrates. This is consistent with both interstitial and alveolar abnormalities, likely related to underlying pneumonia more than fluid overload. LAB DATA: Reviewed. White count 5.8, hemoglobin 8.4, hematocrit 26.7, platelet count 195,000. Sodium 143, potassium 3.1, chloride 103, CO2 38, BUN and creatinine were 14 and 0.29. Rest of the labs look okay. Medications are reviewed. ASSESSMENT: 1. Acute hypoxemic respiratory failure secondary to gram-negative sepsis caused by Proteus mirabilis urinary tract infection and Proteus mirabilis bacteremia with septic shock and subsequent intubation and mechanical ventilation on March 27. 2. Urinary tract infection with hydronephrosis secondary to ureteral lithiasis, status post cystoscopy and stent placement and removal of a right-sided stone. 3. Acute gram-negative bacteremia. 4. Mild interstitial edema. 5. Spiculated left mid lung lesion, to be evaluated as an outpatient. 6. History of dementia. 7. History of hypertension. 8. Degenerative joint disease. 9. Coronary artery disease. 10.Hyperlipidemia. 11.Failure to wean from mechanical ventilation. PLAN: Currently, the patient is about where she was yesterday. She is on the same amount of propofol and norepinephrine. We will do another daily interruption of sedation. She is being nourished with vital high-protein at 30 with a goal of 30. Her chest x-ray is maybe slightly worse. We will continue to follow closely. Overall prognosis remains very poor. She is currently a DNR. I think the family is headed towards comfort measures and terminal wean, but again they have gone back and forth many times now. We will continue to follow. Critical care time 34 minutes. MMODL / IJN: [id number] /
[2019-04-04] MEDS: MORPHINE SULFATE 2 MG/ML SYRINGE IV PRN (10:33)
[2019-04-04 12:06] LABS: Glucose,Whole Blood 149 mg/dL (75-99)
[2019-04-04] MEDS ORDERED: POTASSIUM BICARBONATE/CIT AC 20 MEQ TABLET.EFF NG-TUBE SCH (13:00)
[2019-04-04 18:16] LABS: Glucose,Whole Blood 134 mg/dL (75-99)
[2019-04-04] MEDS: ATORVASTATIN 80 MG TAB OG-TUBE SCH (20:36)
[2019-04-04] MEDS: traZODone HCL 50 MG TAB PO SCH (20:36)
[2019-04-04] MEDS: risperiDONE 1 MG TAB PO SCH (20:37)
--- NOTE | 2019-04-04 20:52 | P.PN ---
Subjective Mr. Patiño is a 69-year-old female with a past medical history of dementia, coronary artery disease, COPD, hypertension brought in via EMS for having a fall at home while trying to get up from the commode. Patient is intubated and in the ICU currently. So most of the history is obtained from the ED notes and nursing staff report. The patient has been weak and was not herself for the past 3 days, family thought that this was because of her dementia. But she became gradually weaker to the extent that she had a fall while trying to get up from the commode. Family reported that she has been having increased frequency of urination and also strong odor to the urine. At the time of admission patient was suppressed hypoxic and hypotensive. Patient was given 2 L of IV normal saline bolus and started on maintenance fluids. She also received a dose of vancomycin and cefepime empirically. Urine analysis was positive for large leukocyte esterase. CAT scan of the abdomen and pelvis was showing right-sided hydronephrosis and the distal 5 mm ureteral calculus. Urology Dr. Salgado was consulted. Last night patient had removal of the stone and a ureteral stent was placed. Patient's blood cultures were positive for Proteus. So vancomycin has been discontinued and cefepime is continued. Patient has history of COPD, so after the procedure the patient could not be extubated. 03/29/2019 pt is 69 yo F with pmh of HTN, HLP, Dementia, Coronary art disease found poor candidate for revascularization procedure, who presents with progressive weakness over 3 days and fall , pt remains intubated and sedated in ICU for septic shock , hydronephrosis with 5 mm kid stone s/p surgical removal and stent placement , she is been followed closely by critical care team , and urology . labs showing improving leukocytosis 20 down to 12.5 K , rest of cbc is stable, sugar controlled. UC: gram negative bacilli. pt is DNR. home medication were reconciled and adjusted per family who considered transferring pt. replace asa ,and plavix if ok with surgery team for her h/o cad. 03/30/2019 Patient remains in the ICU sedated and intubated. Patient felt a sedation holiday today as she got agitated breathing very fast and 50s. Patient placed back to sedation With propofol. Patient remains on cefepime for her UTI and sepsis. Her urine cultures came back positive for Proteus. Blood pressure 110/57. Labs are noted, electrolytes replaced. Aspirin and Plavix were restarted. Patient is on Aricept. Repeat EKG showing normal sinus rhythm at 85 with QTC not prolonged at 392 03/31/2019 Pt remains in the ICU in critical condition , she is intubated and sedated ,failed sedation holiday yesterday, she remains on cefepime and levophed for her septic shock. critical care team and following the case closely 04/01/2019 pt is in the ICU intubated and sedated . pt still needs levophed and she is on cefepime urologist recommended to c/w same management , while critical care team are planing for PEG and tracheostomy , surgical consult is called . 04/02/2019 pt remains in the icu intubated , family today cancelled her procedure of getting PEG tube and tracheostomy ,and they want further trial of weaning , pt is been followed closely by pulmonary and critical care team who manage her mechanical ventilation .Bp 98/55 . hemoglobin 8.8 and creatinine 0.3 06/03/2019 pt is in ICU , intubated and sedated , critical care team and managing the vent for the pt . family are still deciding about the plan of care. surgery team are on the case for possible PEG and tracheotomy as pt keep failing off sedation trial 06/04/2019 pt remains the same , on mechanical ventilation managed by critical care team, family are still considering the management plan. Objective - Vital Signs Vital signs: Vital Signs Temp 98.5 F 04/04/19 16:00 Pulse 83 04/04/19 19:10 Resp 28 H 04/04/19 19:10 BP 112/73 04/04/19 17:00 Pulse Ox 95 04/04/19 19:00 Intake & Output 04/04/19 04/04/19 04/05/19 06:59 18:59 06:59 Intake Total 1669.974 9662.178 Output Total 850 581 Balance 331.951 692.178 Weight 70.9 kg Intake: IV 373 499 Cefepime 2 gm In Sodium 100 200 Chloride 0.9% 100 ml @ 200 mls/hr IVPB Q8HR [facility] Rx#:[id number] Pressure bag, 0.9% 33 39 Sodium Chloride 0.9% 1, 240 260 000 ml @ 20 mls/hr IV . Q24H [facility] Rx#:[id number] Intake, IV Titration 322.951 543.178 Amount Norepinephrine 8 mg In 65.083 188.875 Sodium Chloride 0.9% 250 ml @ 0.05 MCG/KG/MIN 5. 689 mls/hr IV .Q24H [facility] Rx#:[id number] Propofol 1,000 mg In 257.868 354.303 Empty Bag 1 bag @ Titrate IV .Q0M [facility] Rx#: [id number] Tube Feeding 396 231 Other 90 Output: Urine 850 581 Other: Voiding Method Indwelling Catheter Indwelling Catheter ABP, PAP, CO, CI - Last Documented Arterial Blood Pressure 127/68 - Exam -GEN. APPEARANCE: Patient is mechanically ventilated and sedated HEAD EXAM: atraumatic, normocephalic, normal inspection. -ENT EXAM: OG-tube in place -RESPIRATORY EXAM: Coarse breath sounds positive with crackles. No wheezes CARDIOVASCULAR EXAM: S1-S2 heard no additional sounds GI/ABDOMINAL EXAM: soft, normal bowel sounds. EXTREMITIES EXAM: No pedal edema. BACK EXAM: normal inspection -NEUROLOGICAL EXAM: sedated SKIN EXAM: warm, dry, intact, normal color. Absent: rash - Labs CBC & Chem 7: 04/04/19 04:00 04/04/19 18:35 Labs: Abnormal Lab Results - Last 24 Hours (Table) 04/03/19 04/04/19 04/04/19 Range/Units 23:55 04:00 04:00 RBC 3.13 L (3.80-5.40) m/uL Hgb 8.4 L (11.4-16.0) gm/dL Hct 26.7 L (34.0-46.0) % RDW 17.5 H (11.5-15.5) % Lymphocytes # 0.8 L (1.0-4.8) k/uL ABG pCO2 (35-45) mmHg ABG HCO3 (21-25) mmol/L ABG Total CO2 (19-24) mmol/L Potassium 3.1 L (3.5-5.1) mmol/L Carbon Dioxide 38 H (22-30) mmol/L Creatinine 0.29 L (0.52-1.04) mg/dL Glucose 162 H (74-99) mg/dL POC Glucose (mg/dL) 135 H (75-99) mg/dL Calcium 8.3 L (8.4-10.2) mg/dL 04/04/19 04/04/19 04/04/19 Range/Units 04:46 06:01 11:55 RBC (3.80-5.40) m/uL Hgb (11.4-16.0) gm/dL Hct (34.0-46.0) % RDW (11.5-15.5) % Lymphocytes # (1.0-4.8) k/uL ABG pCO2 61 H (35-45) mmHg ABG HCO3 38 H (21-25) mmol/L ABG Total CO2 40 H (19-24) mmol/L Potassium (3.5-5.1) mmol/L Carbon Dioxide (22-30) mmol/L Creatinine (0.52-1.04) mg/dL Glucose (74-99) mg/dL POC Glucose (mg/dL) 154 H 149 H (75-99) mg/dL Calcium (8.4-10.2) mg/dL 04/04/19 Range/Units 18:04 RBC (3.80-5.40) m/uL Hgb (11.4-16.0) gm/dL Hct (34.0-46.0) % RDW (11.5-15.5) % Lymphocytes # (1.0-4.8) k/uL ABG pCO2 (35-45) mmHg ABG HCO3 (21-25) mmol/L ABG Total CO2 (19-24) mmol/L Potassium (3.5-5.1) mmol/L Carbon Dioxide (22-30) mmol/L Creatinine (0.52-1.04) mg/dL Glucose (74-99) mg/dL POC Glucose (mg/dL) 134 H (75-99) mg/dL Calcium (8.4-10.2) mg/dL Microbiology - Last 24 Hours (Table) 04/02/19 17:00 Catheter Tip Culture - Final Catheter Tip Coagulase Negative Staph 03/29/19 12:16 Blood Culture - Final Blood No Growth after 144 hours Assessment and Plan Assessment: Septic shock - gram-negative sepsis - secondary to UTI with Proteus Acute hypoxic respiratory failure. Status post intubated, currently on mechanical ventilation Complicated urinary tract infection - right renal calculi causing obstruction. Status post stent placement hydronephrosis. Spiculated left hilar nodule - finding on the CAT scan of the chest Hypertension Dementia COPD Coronary artery disease Dyslipidemia Plan: Patient is on mechanical ventilation. Continue with pressor support to hold them map above 65. She is on cefepime for her gram-negative sepsis secondary to her UTI with Proteus. Patient had cystoscopy and removal of the right renal calculi and had ureteral stent placement. Blood cultures and urine cultures are reviewed. continue with current antibiotic. Patient has history of coronary artery disease and was evaluated for CABG but was deemed to be a poor candidate for so being managed medically. Overall prognosis is poor. Urology and Paper Tube Cutter following the patient. Further recommendations depending on the progress of the patient. cancel plan for PEG and tracheostomy per family request and possible more weaning trial as per ICU team
[2019-04-04] MEDS: NOREPINEPHRINE 8 MG in SODIUM CHLORIDE 0.9% 250 ML IV SCH (21:09)
[2019-04-04 23:40] LABS: Glucose,Whole Blood 149 mg/dL (75-99)
[2019-04-04 23:51] LABS: Glucose,Whole Blood 169 mg/dL (75-99)
[2019-04-05] MEDS: PROPOFOL 1,000 MG in EMPTY BAG 1 BAG IV SCH ×7 (01:26→21:32)
[2019-04-05] MEDS: SODIUM CHLORIDE 0.9% 1,000 ML IV SCH ×2 (01:26→23:51)
[2019-04-05] MEDS: IPRATROPIUM-ALBUTEROL 3 ML NEB INHALATION SCH ×6 (03:23→23:31)
[2019-04-05 04:34] LABS: ABG Base Excess 14.9 mmol/L; ABG Oxygen Saturation 97.4 % (94-97); ABG PCO2 62 mmHg (35-45); ABG PH 7.42 (7.35-7.45); ABG PO2 97 mmHg (83-108); ABG TCO2 41 mmol/L (19-24); Allen Test Performed? Yes
[2019-04-05 05:02] LABS: ABG HCO3 40 mmol/L (21-25)
[2019-04-05 05:53] LABS: Glucose,Whole Blood 158 mg/dL (75-99)
[2019-04-05] MEDS: INSULIN ASPART (NovoLOG) 100 UNIT/ML VIAL SQ SCH ×4 (06:05→23:45)
[2019-04-05 06:25] LABS: Anisocytosis Slight; Basophils % (A) 0 %; Eosinophils # (A) 0.1 k/uL (0-0.7); Eosinophils % (A) 3 %; HGB 8.1 gm/dL (11.4-16.0); Hypochromasia Marked; Lymphocytes # (A) 0.8 k/uL (1.0-4.8); Lymphocytes % (A) 13 %; MCHC 31.3 g/dL (31.0-37.0); MCV 86.2 fL (80.0-100.0); Monocytes # (A) 0.3 k/uL (0-1.0); Monocytes % (A) 4 %; Neutrophils # (A) 4.4 k/uL (1.3-7.7); Neutrophils % (A) 78 %; Platelet Count 225 k/uL (150-450); RBC 3.02 m/uL (3.80-5.40); RDW 17.9 % (11.5-15.5); WBC 5.7 k/uL (3.8-10.6)
[2019-04-05 07:03] LABS: African American GFR (CKD) >90 (>60 ml/min/1.73 sqM); Anion Gap 2 mmol/L; Blood Urea Nitrogen 15 mg/dL (7-17); Calcium 8.4 mg/dL (8.4-10.2); Carbon Dioxide 39 mmol/L (22-30); Chloride 101 mmol/L (98-107); Glucose 142 mg/dL (74-99); Potassium 3.5 mmol/L (3.5-5.1); Sodium 142 mmol/L (137-145)
[2019-04-05] MEDS ORDERED: Potassium Replacement Protocol 1 EACH MISC MISCELLANE PRN (07:05)
--- NOTE | 2019-04-05 07:53 | XR ---
EXAMINATION TYPE: XR chest 1V portable DATE OF EXAM: 04/05/2019 COMPARISON: 04/04/2019 HISTORY: Ventilatory dependent respiratory failure. TECHNIQUE: Single frontal view of the chest is obtained. FINDINGS: Left basilar airspace disease likely relating to unifocal pneumonia appears unchanged. Und erlying COPD is seen with biapical lucency and pulmonary hyperinflation. Enteric tube and endotrachea l tube as well as a right-sided PICC are similar in position and appear appropriate. Cardia mediastin al silhouette is within normal limits. There is diffuse osseous demineralization. Prominence of the m ain pulmonary arteries may relate to underlying pulmonary artery hypertension. IMPRESSION: Findings most compatible with left basilar pneumonia. Follow-up to resolution is recomme nded to ensure no underlying mass given the background COPD.
[2019-04-05] MEDS: CEFEPIME 2 GM in SODIUM CHLORIDE 0.9% 100 ML IVPB SCH ×3 (07:54→23:45)
[2019-04-05] MEDS: PANTOPRAZOLE 40 MG/10 ML VIAL IVP SCH (07:54)
[2019-04-05] MEDS: POTASSIUM BICARBONATE/CIT AC 20 MEQ TABLET.EFF NG-TUBE SCH ×2 (07:55→10:05)
[2019-04-05] MEDS: MEMANTINE 10 MG TAB PO SCH (07:55)
[2019-04-05] MEDS: HEPARIN SODIUM,PORCINE 5,000 UNIT/ML 1 ML VIAL SQ SCH ×3 (07:55→23:45)
[2019-04-05] MEDS: NYSTATIN 100,000 UNIT/ML SUSP 500,000 UNIT/5 ML CUP PO SCH ×4 (07:56→20:22)
[2019-04-05] MEDS: DONEPEZIL 10 MG TAB OG-TUBE SCH (07:56)
[2019-04-05] MEDS: CHLORHEXIDINE GLUCONATE 15 ML CUP MUCOUS MEM SCH ×2 (08:06→20:21)
[2019-04-05] MEDS ORDERED: FUROSEMIDE 10 MG/ML 4 ML VIAL IV STA (10:14)
--- NOTE | 2019-04-05 11:25 | P.PN ---
<BishopAisha Jerzy - Last Filed: 04/05/19 11:24> Subjective Progress Note Date: 04/05/19 CHIEF COMPLAINT: Trach and PEG HISTORY OF PRESENT ILLNESS: 69-year-old female who is intubated on mechanical ventilation in the intensive care unit. Patient has been unable to wean. She has been intubated since March 27. No family at the bedside currently. Family still undecided on trach and peg. PHYSICAL EXAM: VITAL SIGNS: Reviewed. GENERAL: Well-developed in no acute distress-sedated on mechanical ventilation. HEENT: No sclera icterus. Extraocular movements grossly intact. Moist buccal mucosa. Head is atraumatic, normocephalic. ABDOMEN: Soft. Nondistended. Positive bowel sounds. NEUROLOGIC: Sedated on mechanical ventilation ASSESSMENT: 1. Acute hypoxic respiratory failure requiring intubation and mechanical ventil ation PLAN: Continue tube feeding as tolerated Continue to hold aspirin and Plavix Await decision from family regarding trach and peg If family would like to proceed with trach and peg, will schedule for tomorrow with Dr. Lane Nurse practitioner note has been reviewed by physician. Signing provider agrees with the documented findings, assessment, and plan of care. Objective - Vital Signs Vital signs: Vital Signs Temp 98.6 F 04/05/19 08:00 Pulse 79 04/05/19 10:30 Resp 29 H 04/05/19 10:30 BP 112/73 04/05/19 10:30 Pulse Ox 94 L 04/05/19 10:30 Intake & Output 04/04/19 04/05/19 04/05/19 18:59 06:59 18:59 Intake Total 1273.178 976.042 398 Output Total 581 660 175 Balance 692.178 316.042 223 Weight 70.8 kg Intake: IV 499 376 169 Cefepime 2 gm In Sodium 200 100 100 Chloride 0.9% 100 ml @ 200 mls/hr IVPB Q8HR [facility] Rx#:[id number] Pressure bag, 0.9% 39 36 9 Sodium Chloride 0.9% 1, 260 240 60 000 ml @ 20 mls/hr IV . Q24H [facility] Rx#:[id number] Intake, IV Titration 543.178 204.042 100 Amount Norepinephrine 8 mg In 188.875 4.042 Sodium Chloride 0.9% 250 ml @ 0.05 MCG/KG/MIN 5. 689 mls/hr IV .Q24H [facility] Rx#:[id number] Propofol 1,000 mg In 354.303 200 100 Empty Bag 1 bag @ Titrate IV .Q0M [facility] Rx#: [id number] Tube Feeding 231 396 99 Other 30 Output: Urine 581 660 175 Other: Voiding Method Indwelling Catheter Indwelling Catheter Indwelling Catheter ABP, PAP, CO, CI - Last Documented Arterial Blood Pressure 115/62 - Labs CBC & Chem 7: 04/05/19 04:50 04/05/19 04:50 Labs: Abnormal Lab Results - Last 24 Hours (Table) 04/04/19 04/04/19 04/04/19 Range/Units 11:55 18:04 23:29 RBC (3.80-5.40) m/uL Hgb (11.4-16.0) gm/dL Hct (34.0-46.0) % RDW (11.5-15.5) % Lymphocytes # (1.0-4.8) k/uL ABG pCO2 (35-45) mmHg ABG HCO3 (21-25) mmol/L ABG Total CO2 (19-24) mmol/L ABG O2 Saturation (94-97) % Carbon Dioxide (22-30) mmol/L Creatinine (0.52-1.04) mg/dL Glucose (74-99) mg/dL POC Glucose (mg/dL) 149 H 134 H 149 H (75-99) mg/dL 04/04/19 04/05/19 04/05/19 Range/Units 23:39 04:31 04:50 RBC 3.02 L (3.80-5.40) m/uL Hgb 8.1 L (11.4-16.0) gm/dL Hct 26.0 L (34.0-46.0) % RDW 17.9 H (11.5-15.5) % Lymphocytes # 0.8 L (1.0-4.8) k/uL ABG pCO2 62 H (35-45) mmHg ABG HCO3 40 H* (21-25) mmol/L ABG Total CO2 41 H (19-24) mmol/L ABG O2 Saturation 97.4 H (94-97) % Carbon Dioxide (22-30) mmol/L Creatinine (0.52-1.04) mg/dL Glucose (74-99) mg/dL POC Glucose (mg/dL) 169 H (75-99) mg/dL 04/05/19 04/05/19 Range/Units 04:50 05:42 RBC (3.80-5.40) m/uL Hgb (11.4-16.0) gm/dL Hct (34.0-46.0) % RDW (11.5-15.5) % Lymphocytes # (1.0-4.8) k/uL ABG pCO2 (35-45) mmHg ABG HCO3 (21-25) mmol/L ABG Total CO2 (19-24) mmol/L ABG O2 Saturation (94-97) % Carbon Dioxide 39 H (22-30) mmol/L Creatinine 0.28 L (0.52-1.04) mg/dL Glucose 142 H (74-99) mg/dL POC Glucose (mg/dL) 158 H (75-99) mg/dL Microbiology - Last 24 Hours (Table) 04/02/19 17:00 Catheter Tip Culture - Final Catheter Tip Coagulase Negative Staph 03/29/19 12:16 Blood Culture - Final Blood No Growth after 144 hours <Yaneth Frederick N - Last Filed: 04/05/19 19:24> Subjective ROS: No fevers or chills. No reports of gastrointestinal bleed. PHYSICAL EXAM: VITAL SIGNS: Reviewed CONSTITUTIONAL: Well developed and in no acute distress. EYES: Conjuctivae without sclera icterus. Extraocular movements grossly intact. HEAD, EARS, NOSE, THROAT: Moist buccal mucosa. Head is atraumatic, normo cephalic. No nasal drainage. NECK: Supple. No thyroidomegaly. RESPIRATORY: Non-labored respirations and equal bilateral excursions. On mechanical ventilation. CARDIOVASCULAR: Palpable 2+ radial pulses. ABDOMEN: Soft. No peritonitis. MUSCULOSKELETAL: No gross deformity of the lower extremities noted. Has moderate 2+ upper and lower extremity edema. SKIN: Good skin turgor. Well perfused. NEUROLOGIC: No focal or lateralizing signs. PSYCH: Not alert. Not responsive to commands. Objective - Vital Signs Vital signs: Vital Signs Temp 99.3 F 04/05/19 16:00 Pulse 100 04/05/19 19:00 Resp 36 H 04/05/19 19:00 BP 112/73 04/05/19 19:00 Pulse Ox 94 L 04/05/19 19:00 Intake & Output 04/05/19 04/05/19 04/06/19 06:59 18:59 06:59 Intake Total 824.743 9091.555 56 Output Total 660 1740 40 Balance 316.042 -422.445 16 Weight 70.8 kg Intake: IV 376 313 23 Cefepime 2 gm In Sodium 100 100 Chloride 0.9% 100 ml @ 200 mls/hr IVPB Q8HR [facility] Rx#:[id number] Pressure bag, 0.9% 36 33 3 Sodium Chloride 0.9% 1, 240 180 20 000 ml @ 20 mls/hr IV . Q24H [facility] Rx#:[id number] Intake, IV Titration 204.042 617.555 Amount Norepinephrine 8 mg In 4.042 227.351 Sodium Chloride 0.9% 250 ml @ 0.05 MCG/KG/MIN 5. 689 mls/hr IV .Q24H [facility] Rx#:[id number] Propofol 1,000 mg In 200 390.204 Empty Bag 1 bag @ Titrate IV .Q0M [facility] Rx#: [id number] Tube Feeding 396 297 33 Other 90 0 Output: Urine 660 1740 40 Other: Voiding Method Indwelling Catheter Indwelling Catheter ABP, PAP, CO, CI - Last Documented Arterial Blood Pressure 113/60 - Labs CBC & Chem 7: 04/05/19 04:50 04/05/19 13:20 Labs: Abnormal Lab Results - Last 24 Hours (Table) 04/04/19 04/04/19 04/05/19 Range/Units 23:29 23:39 04:31 RBC (3.80-5.40) m/uL Hgb (11.4-16.0) gm/dL Hct (34.0-46.0) % RDW (11.5-15.5) % Lymphocytes # (1.0-4.8) k/uL ABG pCO2 62 H (35-45) mmHg ABG HCO3 40 H* (21-25) mmol/L ABG Total CO2 41 H (19-24) mmol/L ABG O2 Saturation 97.4 H (94-97) % Carbon Dioxide (22-30) mmol/L Creatinine (0.52-1.04) mg/dL Glucose (74-99) mg/dL POC Glucose (mg/dL) 149 H 169 H (75-99) mg/dL 04/05/19 04/05/19 04/05/19 Range/Units 04:50 04:50 05:42 RBC 3.02 L (3.80-5.40) m/uL Hgb 8.1 L (11.4-16.0) gm/dL Hct 26.0 L (34.0-46.0) % RDW 17.9 H (11.5-15.5) % Lymphocytes # 0.8 L (1.0-4.8) k/uL ABG pCO2 (35-45) mmHg ABG HCO3 (21-25) mmol/L ABG Total CO2 (19-24) mmol/L ABG O2 Saturation (94-97) % Carbon Dioxide 39 H (22-30) mmol/L Creatinine 0.28 L (0.52-1.04) mg/dL Glucose 142 H (74-99) mg/dL POC Glucose (mg/dL) 158 H (75-99) mg/dL 04/05/19 04/05/19 Range/Units 11:48 17:22 RBC (3.80-5.40) m/uL Hgb (11.4-16.0) gm/dL Hct (34.0-46.0) % RDW (11.5-15.5) % Lymphocytes # (1.0-4.8) k/uL ABG pCO2 (35-45) mmHg ABG HCO3 (21-25) mmol/L ABG Total CO2 (19-24) mmol/L ABG O2 Saturation (94-97) % Carbon Dioxide (22-30) mmol/L Creatinine (0.52-1.04) mg/dL Glucose (74-99) mg/dL POC Glucose (mg/dL) 132 H 129 H (75-99) mg/dL Microbiology - Last 24 Hours (Table) 04/02/19 17:00 Catheter Tip Culture - Final Catheter Tip Coagulase Negative Staph Assessment and Plan (1) Protein malnutrition Current Visit: Yes Status: Acute Code(s): E46 - UNSPECIFIED PROTEIN-CALORIE MALNUTRITION SNOMED Code(s): 399852156 (2) Acute pyelonephritis Current Visit: Yes Status: Acute Code(s): N10 - ACUTE PYELONEPHRITIS SNOMED Code(s): 54634952 (3) Altered mental status Current Visit: Yes Status: Acute Code(s): R41.82 - ALTERED MENTAL STATUS, UNSPECIFIED SNOMED Code(s): 668232157 (4) Dementia Current Visit: Yes Status: Acute Code(s): F03.90 - UNSPECIFIED DEMENTIA WITHOUT BEHAVIORAL DISTURBANCE SNOMED Code(s): 00669886 (5) Pneumonia Current Visit: Yes Status: Acute Code(s): J18.9 - PNEUMONIA, UNSPECIFIED ORGANISM SNOMED Code(s): 757858764 (6) Respiratory failure Current Visit: Yes Status: Acute Code(s): J96.90 - RESPIRATORY FAILURE, UNSP, UNSP W HYPOXIA OR HYPERCAPNIA SNOMED Code(s): 940260909
[2019-04-05 12:10] LABS: Glucose,Whole Blood 132 mg/dL (75-99)
--- NOTE | 2019-04-05 14:00 | ECHOF ---
Referral Reason:assess LVF MEASUREMENTS -------- HEIGHT: 162.6 cm WEIGHT: 70.8 kg BP: 112/3 RVIDd: 3.7 cm (< 3.3) IVSd: 1.0 cm (0.6 - 1.1) LVIDd: 4.7 cm (3.9 - 5.3) LVPWd: 1.0 cm (0.6 - 1.1) IVSs: 1.8 cm LVIDs: 2.7 cm LVPWs: 1.6 cm LA Diam: 2.1 cm (2.7 - 3.8) LAESV Index (A-L): 10.09 ml/m Ao Diam: 3.2 cm (2.0 - 3.7) AV Cusp: 1.9 cm (1.5 - 2.6) MV EXCURSION: 17.354 mm (> 18.000) MV EF SLOPE: 38 mm/s (70 - 150) EPSS: 0.9 cm MV E Oseas: 0.83 m/s MV DecT: 289 ms MV A Ose[place]: 0.87 m/s MV E/A Ratio: 0.96 RAP: 5.00 mmHg RVSP: 39.09 mmHg FINDINGS -------- Sinus rhythm. This was a technically adequate study. The left ventricular size is normal. Left ventricular wall thickness is normal. Overall left vent ricular systolic function is normal with, an EF between 65 - 70 %. The right ventricle is mild to moderately enlarged. Normal LA size by volume 22+/-6 ml/m2. The right atrium is normal in size. Interatrial and interventricular septum intact. The aortic valve is trileaflet and appears structurally normal. Mild mitral regurgitation is present. Mild tricuspid regurgitation present. There is mild pulmonary hypertension. The right ventricular systolic pressure, as measured by Doppler, is 39.09mmHg. The pulmonic valve was not well visualized. The aortic root size is normal. The inferior vena cava is mildly dilated. The inferior vena cava is dilated with poor inspiratory c ollapse which is consistent with estimated right atrial pressure of 20 mmHg. There is no pericardial effusion. CONCLUSIONS -------- 1. Sinus rhythm. 2. This was a technically adequate study. 3. The left ventricular size is normal. 4. Left ventricular wall thickness is normal. 5. Overall left ventricular systolic function is normal with, an EF between 65 - 70 %. 6. The right ventricle is mild to moderately enlarged. 7. Normal LA size by volume 22+/-6 ml/m2. 8. The right atrium is normal in size. 9. Interatrial and interventricular septum intact. 10. The aortic valve is trileaflet and appears structurally normal. 11. Mild mitral regurgitation is present. 12. Mild tricuspid regurgitation present. 13. There is mild pulmonary hypertension. 14. The right ventricular systolic pressure, as measured by Doppler, is 39.09mmHg. 15. The pulmonic valve was not well visualized. 16. The aortic root size is normal. 17. The inferior vena cava is mildly dilated. 18. There is no pericardial effusion. ANIMAL GROOMER: January Castellon RDCS
[2019-04-05] MEDS: MORPHINE SULFATE 2 MG/ML SYRINGE IV PRN (15:32)
--- NOTE | 2019-04-05 16:48 | P.PN ---
Subjective Progress Note Date: 04/05/19 This is a 69-year-old female patient is being seen in follow-up in the intensive care unit. The patient is being seen on 04/05/2019. The patient remains intubated on a mechanical ventilator. This morning the patient is on a tidal volume of 650 with an FiO2 of 50% and a PEEP of 12 and a respiratory rate of 28. Chest x-ray showing left basilar opacity. ET tube is in a good location. NG tube is in a good location. The patient is well sedated with propofol and the patient is currently on 75 mg of propofol. The patient is also receiving enteral feeding for nutritional support with high protein vital at the rate of 33 mL an hour. The patient had a blood gas today that showed a pH of 7.42 with a pCO2 of 62 and pO2 of 97. Based on these, I dropped the PEEP down to 10. Rest of the vent settings are Unchanged per no symptoms and orotracheal secretions. The patient is a still hemodynamically unstable and the patient is currently on 0.1 g per KG per minute of levo fed infusion. Noted the patient presented to us with gram-negative septic shock that do not to be of a urinary source. The patient a complicated UTI with nephrolithiasis. The patient underwent a emergent urologic evaluation with insertion of double-J stent in the right ureter. Cultures were positive for Proteus and the patient is currently on IV antibiotics utilizing IV cefepime. Still on pressors. Fluid infusion is running at KVO. Neck fluid balance has been positive over the past 3-4 days. The patient was given the option of PEG and trach by Dr Hernandez and the final decision has not done yet. Meanwhile, the patient has a white cell count of 5.7. Hemoglobin stable at 8.2. Renal function stable with a creatinine of 0.28. She is tolerating her tube feeds. No cardiac arrhythmias and her rhythm is sinus. Echocardiogram is to follow today. The patient has been in the ICU for the past 9 days. Objective - Vital Signs Vital signs: Vital Signs Temp 99 F 04/05/19 12:00 Pulse 95 04/05/19 15:00 Resp 30 H 04/05/19 15:00 BP 112/73 04/05/19 15:00 Pulse Ox 91 L 04/05/19 15:00 Intake & Output 04/04/19 04/05/19 04/05/19 18:59 06:59 18:59 Intake Total 1273.178 976.042 802.204 Output Total 873 595 2176 Balance 692.178 316.042 -622.796 Weight 70.8 kg Intake: IV 499 376 221 Cefepime 2 gm In Sodium 200 100 100 Chloride 0.9% 100 ml @ 200 mls/hr IVPB Q8HR [facility] Rx#:[id number] Pressure bag, 0.9% 39 36 21 Sodium Chloride 0.9% 1, 260 240 100 000 ml @ 20 mls/hr IV . Q24H [facility] Rx#:[id number] Intake, IV Titration 543.178 204.042 290.204 Amount Norepinephrine 8 mg In 188.875 4.042 Sodium Chloride 0.9% 250 ml @ 0.05 MCG/KG/MIN 5. 689 mls/hr IV .Q24H [facility] Rx#:[id number] Propofol 1,000 mg In 354.303 200 290.204 Empty Bag 1 bag @ Titrate IV .Q0M [facility] Rx#: [id number] Tube Feeding 231 396 231 Other 60 Output: Urine 404 232 7475 Other: Voiding Method Indwelling Catheter Indwelling Catheter Indwelling Catheter ABP, PAP, CO, CI - Last Documented Arterial Blood Pressure 118/65 - Exam Gen. appearance, comfortable sedated intubated on a mechanical ventilator. Orogastric and orotracheal tube are both in place. Head exam was generally normal. There was no scleral icterus or corneal arcus. Mucous membranes were moist. Neck was supple and without jugular venous distension, thyromegaly, or carotid bruits. Carotids were easily palpable bilaterally. There was no adenopathy. Orogastric and orotracheal tube are both in place. Lungs sounds are diminished bilaterally along with scattered rhonchi and scattered expiratory wheezes throughout the lung his bilaterally. Cardiac exam revealed the PMI to be normally situated and sized. The rhythm was regular and no extrasystoles were noted during several minutes of auscultation. The first and second heart sounds were normal and physiologic splitting of the second heart sound was noted. There were no murmurs, rubs, clicks, or gallops. Abdominal exam revealed normal bowel sounds. The abdomen was soft, non-tender, and without masses, organomegaly, or appreciable enlargement of the abdominal aorta. Extremities revealed +1 pitting edema in all 4 extremities. No cyanosis or club lashon and the patient adequate pulses in all 4 extremities. Examination of the skin revealed no evidence of significant rashes, suspicious appearing nevi or other concerning lesions. Neurologically the patient is sedated. She arouses was she's taken off sedation however she does not follow any simple commands. - Labs CBC & Chem 7: 04/05/19 04:50 04/05/19 13:20 Labs: Abnormal Lab Results - Last 24 Hours (Table) 04/04/19 04/04/19 04/04/19 Range/Units 18:04 23:29 23:39 RBC (3.80-5.40) m/uL Hgb (11.4-16.0) gm/dL Hct (34.0-46.0) % RDW (11.5-15.5) % Lymphocytes # (1.0-4.8) k/uL ABG pCO2 (35-45) mmHg ABG HCO3 (21-25) mmol/L ABG Total CO2 (19-24) mmol/L ABG O2 Saturation (94-97) % Carbon Dioxide (22-30) mmol/L Creatinine (0.52-1.04) mg/dL Glucose (74-99) mg/dL POC Glucose (mg/dL) 134 H 149 H 169 H (75-99) mg/dL 04/05/19 04/05/19 04/05/19 Range/Units 04:31 04:50 04:50 RBC 3.02 L (3.80-5.40) m/uL Hgb 8.1 L (11.4-16.0) gm/dL Hct 26.0 L (34.0-46.0) % RDW 17.9 H (11.5-15.5) % Lymphocytes # 0.8 L (1.0-4.8) k/uL ABG pCO2 62 H (35-45) mmHg ABG HCO3 40 H* (21-25) mmol/L ABG Total CO2 41 H (19-24) mmol/L ABG O2 Saturation 97.4 H (94-97) % Carbon Dioxide 39 H (22-30) mmol/L Creatinine 0.28 L (0.52-1.04) mg/dL Glucose 142 H (74-99) mg/dL POC Glucose (mg/dL) (75-99) mg/dL 04/05/19 04/05/19 Range/Units 05:42 11:48 RBC (3.80-5.40) m/uL Hgb (11.4-16.0) gm/dL Hct (34.0-46.0) % RDW (11.5-15.5) % Lymphocytes # (1.0-4.8) k/uL ABG pCO2 (35-45) mmHg ABG HCO3 (21-25) mmol/L ABG Total CO2 (19-24) mmol/L ABG O2 Saturation (94-97) % Carbon Dioxide (22-30) mmol/L Creatinine (0.52-1.04) mg/dL Glucose (74-99) mg/dL POC Glucose (mg/dL) 158 H 132 H (75-99) mg/dL Microbiology - Last 24 Hours (Table) 04/02/19 17:00 Catheter Tip Culture - Final Catheter Tip Coagulase Negative Staph 03/29/19 12:16 Blood Culture - Final Blood No Growth after 144 hours Assessment and Plan Plan: 1 acute hypoxic respiratory failure following a gram-negative urine checked infection and sepsis in addition to a right lower lobe pneumonia. The patient remains intubated on a mechanical ventilator and she's been on a mechanical ventilator for more than a week. The family is being approached regarding the possibility of a PEG and trach and the final decision has not been done yet. On today's evaluation the blood gases was noted. Chest x-ray was noted 2 acute Proteus urine infection secondary to complicated UTI and secondary sepsis. 3 septic shock secondary to above and the patient continues to be on pressors 4 dementia which is been quite advanced and based on the family's description the patient had significant impairment in her cognitive functions. 5 coronary artery disease, previously surgery was offered for her as the patient was evaluated for a CABG however she was felt to be a poor candidate for myocardial revascularization surgery. She was treated conservatively accordingly. 6 hypertension 7 hyperlipidemia 8 left hilar nodule seen on a previous CAT scan of the chest 9 sputum Mckenzie which is probably contaminant Plan Continue vent support. Rubs. Down to 10. Continue same antibiotic coverage. Start the patient on gentle diuresis. The patient was given a dose of Lasix 40 mg IV push and if she is able to tolerate and will continue her diuretics. Obtain echocardiogram. Check serum cortisol level. Continue hydrating the pressors to wean the pressors off over the next 24-48 hours. Continue enteral feeding for nutritional support. Sedation holiday on a daily basis. I elected discussion with the patient's family regarding PEG and trach. Unfortunately doubt, this patient is poor based on her underlying comorbidities. She has s ignificant dementia with impairment of the cognitive function and she may not wean off easily off the mechanical ventilator. The family understands. The family decision will be done within next 24 hours regarding PEG and trach versus comfort care measures. The family is undecided at this point in time. As mentioned, her dementia is advanced and the patient has poor impaired performance and functional status at baseline. There is a critically care evaluation was done and more than 30 minutes. Time with Patient: Greater than 30
[2019-04-05 17:43] LABS: Glucose,Whole Blood 129 mg/dL (75-99)
--- NOTE | 2019-04-05 18:31 | P.PN ---
Subjective Mr. Patiño is a 69-year-old female with a past medical history of dementia, coronary artery disease, COPD, hypertension brought in via EMS for having a fall at home while trying to get up from the commode. Patient is intubated and in the ICU currently. So most of the history is obtained from the ED notes and nursing staff report. The patient has been weak and was not herself for the past 3 days, family thought that this was because of her dementia. But she became gradually weaker to the extent that she had a fall while trying to get up from the commode. Family reported that she has been having increased frequency of urination and also strong odor to the urine. At the time of admission patient was suppressed hypoxic and hypotensive. Patient was given 2 L of IV normal saline bolus and started on maintenance fluids. She also received a dose of vancomycin and cefepime empirically. Urine analysis was positive for large leukocyte esterase. CAT scan of the abdomen and pelvis was showing right-sided hydronephrosis and the distal 5 mm ureteral calculus. Urology Dr. Salgado was consulted. Last night patient had removal of the stone and a ureteral stent was placed. Patient's blood cultures were positive for Proteus. So vancomycin has been discontinued and cefepime is continued. Patient has history of COPD, so after the procedure the patient could not be extubated. 03/29/2019 pt is 69 yo F with pmh of HTN, HLP, Dementia, Coronary art disease found poor candidate for revascularization procedure, who presents with progressive weakness over 3 days and fall , pt remains intubated and sedated in ICU for septic shock , hydronephrosis with 5 mm kid stone s/p surgical removal and stent placement , she is been followed closely by critical care team , and urology . labs showing improving leukocytosis 20 down to 12.5 K , rest of cbc is stable, sugar controlled. UC: gram negative bacilli. pt is DNR. home medication were reconciled and adjusted per family who considered transferring pt. replace asa ,and plavix if ok with surgery team for her h/o cad. 03/30/2019 Patient remains in the ICU sedated and intubated. Patient felt a sedation holiday today as she got agitated breathing very fast and 50s. Patient placed back to sedation With propofol. Patient remains on cefepime for her UTI and sepsis. Her urine cultures came back positive for Proteus. Blood pressure 110/57. Labs are noted, electrolytes replaced. Aspirin and Plavix were restarted. Patient is on Aricept. Repeat EKG showing normal sinus rhythm at 85 with QTC not prolonged at 392 03/31/2019 Pt remains in the ICU in critical condition , she is intubated and sedated ,failed sedation holiday yesterday, she remains on cefepime and levophed for her septic shock. critical care team and following the case closely 04/01/2019 pt is in the ICU intubated and sedated . pt still needs levophed and she is on cefepime urologist recommended to c/w same management , while critical care team are planing for PEG and tracheostomy , surgical consult is called . 04/02/2019 pt remains in the icu intubated , family today cancelled her procedure of getting PEG tube and tracheostomy ,and they want further trial of weaning , pt is been followed closely by pulmonary and critical care team who manage her mechanical ventilation .Bp 98/55 . hemoglobin 8.8 and creatinine 0.3 04/03/2019 pt is in ICU , intubated and sedated , critical care team and managing the vent for the pt . family are still deciding about the plan of care. surgery team are on the case for possible PEG and tracheotomy as pt keep failing off sedation trial 04/04/2019 pt remains the same , on mechanical ventilation managed by critical care team, family are still considering the management plan. 04/05/2019 pt is been followed in the ICU for septic shock and respiratory failure, she is been intubated and sedated , several off sedation trials were unsuccessful , she is still on pressors , family are deciding for comfort measure versus PEG and tracheostomy Objective - Vital Signs Vital signs: Vital Signs Temp 99.3 F 04/05/19 16:00 Pulse 97 04/05/19 18:00 Resp 32 H 04/05/19 18:00 BP 112/73 04/05/19 18:00 Pulse Ox 95 04/05/19 18:00 Intake & Output 04/04/19 04/05/19 04/05/19 18:59 06:59 18:59 Intake Total 1273.178 804.155 5461.555 Output Total 474 213 7837 Balance 692.178 316.042 -422.445 Weight 70.8 kg Intake: IV 499 376 313 Cefepime 2 gm In Sodium 200 100 100 Chloride 0.9% 100 ml @ 200 mls/hr IVPB Q8HR [facility] Rx#:[id number] Pressure bag, 0.9% 39 36 33 Sodium Chloride 0.9% 1, 260 240 180 000 ml @ 20 mls/hr IV . Q24H [facility] Rx#:[id number] Intake, IV Titration 543.178 204.042 617.555 Amount Norepinephrine 8 mg In 188.875 4.042 227.351 Sodium Chloride 0.9% 250 ml @ 0.05 MCG/KG/MIN 5. 689 mls/hr IV .Q24H [facility] Rx#:[id number] Propofol 1,000 mg In 354.303 200 390.204 Empty Bag 1 bag @ Titrate IV .Q0M [facility] Rx#: [id number] Tube Feeding 231 396 297 Other 90 Output: Urine 353 350 1696 Other: Voiding Method Indwelling Catheter Indwelling Catheter Indwelling Catheter ABP, PAP, CO, CI - Last Documented Arterial Blood Pressure 114/63 - Exam -GEN. APPEARANCE: Patient is mechanically ventilated and sedated HEAD EXAM: atraumatic, normocephalic, normal inspection. -ENT EXAM: OG-tube in place -RESPIRATORY EXAM: Coarse breath sounds positive with crackles. No wheezes CARDIOVASCULAR EXAM: S1-S2 heard no additional sounds GI/ABDOMINAL EXAM: soft, normal bowel sounds. EXTREMITIES EXAM: No pedal edema. BACK EXAM: normal inspection -NEUROLOGICAL EXAM: sedated SKIN EXAM: warm, dry, intact, normal color. Absent: rash - Labs CBC & Chem 7: 04/05/19 04:50 04/05/19 13:20 Labs: Abnormal Lab Results - Last 24 Hours (Table) 04/04/19 04/04/19 04/05/19 Range/Units 23:29 23:39 04:31 RBC (3.80-5.40) m/uL Hgb (11.4-16.0) gm/dL Hct (34.0-46.0) % RDW (11.5-15.5) % Lymphocytes # (1.0-4.8) k/uL ABG pCO2 62 H (35-45) mmHg ABG HCO3 40 H* (21-25) mmol/L ABG Total CO2 41 H (19-24) mmol/L ABG O2 Saturation 97.4 H (94-97) % Carbon Dioxide (22-30) mmol/L Creatinine (0.52-1.04) mg/dL Glucose (74-99) mg/dL POC Glucose (mg/dL) 149 H 169 H (75-99) mg/dL 04/05/19 04/05/19 04/05/19 Range/Units 04:50 04:50 05:42 RBC 3.02 L (3.80-5.40) m/uL Hgb 8.1 L (11.4-16.0) gm/dL Hct 26.0 L (34.0-46.0) % RDW 17.9 H (11.5-15.5) % Lymphocytes # 0.8 L (1.0-4.8) k/uL ABG pCO2 (35-45) mmHg ABG HCO3 (21-25) mmol/L ABG Total CO2 (19-24) mmol/L ABG O2 Saturation (94-97) % Carbon Dioxide 39 H (22-30) mmol/L Creatinine 0.28 L (0.52-1.04) mg/dL Glucose 142 H (74-99) mg/dL POC Glucose (mg/dL) 158 H (75-99) mg/dL 04/05/19 04/05/19 Range/Units 11:48 17:22 RBC (3.80-5.40) m/uL Hgb (11.4-16.0) gm/dL Hct (34.0-46.0) % RDW (11.5-15.5) % Lymphocytes # (1.0-4.8) k/uL ABG pCO2 (35-45) mmHg ABG HCO3 (21-25) mmol/L ABG Total CO2 (19-24) mmol/L ABG O2 Saturation (94-97) % Carbon Dioxide (22-30) mmol/L Creatinine (0.52-1.04) mg/dL Glucose (74-99) mg/dL POC Glucose (mg/dL) 132 H 129 H (75-99) mg/dL Microbiology - Last 24 Hours (Table) 04/02/19 17:00 Catheter Tip Culture - Final Catheter Tip Coagulase Negative Staph 03/29/19 12:16 Blood Culture - Final Blood No Growth after 144 hours Assessment and Plan Assessment: Septic shock - gram-negative sepsis - secondary to UTI with Proteus Acute hypoxic respiratory failure. Status post intubated, currently on mech anical ventilation Complicated urinary tract infection - right renal calculi causing obstruction. Status post stent placement hydronephrosis. Spiculated left hilar nodule - finding on the CAT scan of the chest Hypertension Dementia COPD Coronary artery disease Dyslipidemia Plan: Patient is on mechanical ventilation. Continue with pressor support to hold them map above 65. She is on cefepime for her gram-negative sepsis secondary to her UTI with Proteus. Patient had cystoscopy and removal of the right renal calculi and had ureteral stent placement. Blood cultures and urine cultures are reviewed. continue with current antibiotic. Patient has history of coronary artery disease and was evaluated for CABG but was deemed to be a poor candidate for so being managed medically. Overall prognosis is poor. Urology and [facility] [employer] following the patient. Further recommendations depending on the progress of the patient. family to decide for PEG and tracheostomy or comfort measures
[2019-04-05] MEDS: traZODone HCL 50 MG TAB PO SCH (20:21)
[2019-04-05] MEDS: ATORVASTATIN 80 MG TAB OG-TUBE SCH (20:21)
[2019-04-05] MEDS: risperiDONE 1 MG TAB PO SCH (20:21)
[2019-04-05 23:52] LABS: Glucose,Whole Blood 157 mg/dL (75-99)
[2019-04-06] MEDS: PROPOFOL 1,000 MG in EMPTY BAG 1 BAG IV SCH ×3 (00:14→07:15)
[2019-04-06] MEDS: MORPHINE SULFATE 2 MG/ML SYRINGE IV PRN ×2 (01:27→08:48)
[2019-04-06] MEDS: NOREPINEPHRINE 8 MG in SODIUM CHLORIDE 0.9% 250 ML IV SCH (02:08)
[2019-04-06] MEDS: IPRATROPIUM-ALBUTEROL 3 ML NEB INHALATION SCH ×3 (03:30→10:54)
[2019-04-06 04:27] LABS: ABG Base Excess 18.5 mmol/L; ABG Oxygen Saturation 91.9 % (94-97); ABG PCO2 63 mmHg (35-45); ABG PH 7.44 (7.35-7.45); ABG PO2 63 mmHg (83-108); ABG TCO2 45 mmol/L (19-24)
[2019-04-06 04:30] LABS: ABG HCO3 43 mmol/L (21-25)
[2019-04-06 05:04] VITALS: BP 112/62
[2019-04-06 05:43] LABS: Anisocytosis Slight; Basophils % (A) 0 %; Eosinophils # (A) 0.2 k/uL (0-0.7); Eosinophils % (A) 3 %; HCT 26.1 % (34.0-46.0); HGB 8.1 gm/dL (11.4-16.0); Hypochromasia Marked; Lymphocytes # (A) 0.9 k/uL (1.0-4.8); Lymphocytes % (A) 13 %; MCHC 31.1 g/dL (31.0-37.0); MCV 86.8 fL (80.0-100.0); Mean Platelet Volume 8.9; Monocytes # (A) 0.3 k/uL (0-1.0); Monocytes % (A) 5 %; Neutrophils # (A) 5.2 k/uL (1.3-7.7); Neutrophils % (A) 78 %; Platelet Count 268 k/uL (150-450); RBC 3.01 m/uL (3.80-5.40); RDW 18.4 % (11.5-15.5); WBC 6.8 k/uL (3.8-10.6)
[2019-04-06 05:55] LABS: African American GFR (CKD) >90 (>60 ml/min/1.73 sqM); Blood Urea Nitrogen 15 mg/dL (7-17); Calcium 8.3 mg/dL (8.4-10.2); Chloride 98 mmol/L (98-107); Glucose 145 mg/dL (74-99); Potassium 3.5 mmol/L (3.5-5.1); Sodium 141 mmol/L (137-145)
[2019-04-06 06:02] LABS: Glucose,Whole Blood 158 mg/dL (75-99)
[2019-04-06 06:02] LABS: Anion Gap 4 mmol/L
[2019-04-06] MEDS: INSULIN ASPART (NovoLOG) 100 UNIT/ML VIAL SQ SCH (06:04)
[2019-04-06 06:18] LABS: Carbon Dioxide 39 mmol/L (22-30)
[2019-04-06] MEDS: POTASSIUM BICARBONATE/CIT AC 20 MEQ TABLET.EFF NG-TUBE SCH ×2 (06:38→10:13)
--- NOTE | 2019-04-06 08:10 | XR ---
EXAMINATION TYPE: XR chest 1V portable DATE OF EXAM: 04/06/2019 COMPARISON: 04/05/2019 HISTORY: Shortness of breath TECHNIQUE: Single frontal view of the chest is obtained. FINDINGS: ET and NG tube and central line stable. Bilateral consolidation small effusion. Underlying COPD. Chronic right clavicular deformity seen and there is diffuse osteopenia. Atherosclerotic lopez e aorta. Coarsened interstitium noted. IMPRESSION: 1. COPD with persistent bilateral infiltrate and pleural effusion greater on the left correlate for p neumonia versus CHF.
[2019-04-06 09:06] VITALS: TEMP 99
[2019-04-06] MEDS ORDERED: RX INFO: IV CONTRAST WAS GIVEN 1 EACH MISC MISCELLANE PRN (09:21)
[2019-04-06 09:52] LABS: ABG Base Excess 19.5 mmol/L; ABG Oxygen Saturation 93.6 % (94-97); ABG PCO2 59 mmHg (35-45); ABG PH 7.47 (7.35-7.45); ABG PO2 67 mmHg (83-108); ABG TCO2 45 mmol/L (19-24); Allen Test Performed? Yes
--- NOTE | 2019-04-06 09:52 | CDI ---
Documentation Clarification Form Date: 04/06/2019 9:40:12 AM From: Madyson EngPOLLO, CCDS Admit Date: 03/27/2019 8:26:00 PM Patient Name: Madyson Morfin Visit Number: [id number] Discharge Date: ATTENTION: The Clinical Documentation Specialists (CDI) and [facility] Coding Staff appreciate your assistance in clarifying documentation. Please respond to the clarification below the line at the bottom and electronically sign. The CDI & [facility] Coding staff will review the response and follow-up if needed. Please note: Queries are made part of the Legal Health Record. If you have any questions, please contact the author of this message via ITS. Dr. Yaneth Frederick: Malnutrition has been documented in the surgical notes of 04/04 & 04/05 as "protein malnutrition". History/Risk Factors: Dementia, CAD, COPD, Hypertension. Clinical Indicators: Patent presented to ER after a fall at home with fever & weakness. Diagnosed with acute hypoxic respiratory failure, Gram negative sepsis secondary to UTI with septic shock, complicated UTI with right renal calculus causing obstruction. Labs: Total protein (6.6), 5.8*; Albumin 3.3*, 2.7*. BMI: 26.0 Physical Assessment: Patient has a pressure injury on her coccyx, (deep tissue); intubated on 03/27, unable to wean. Treatment: Intubated on vent since 03/27, Cystoscopy with right ureteral stent insertion on 03/27. IV Cefepime, IV fluid rate 1000, INH Albuterol, IV Vancomycin, IV Ms, IV MagSulfate/Dextrose, NGT. Pending decision from family regarding Trach/PEG vs comfort care, patient unable to be weaned so far. In your professional opinion, can you please clarify if these findings signify one of the following conditions? Mild Protein-Calorie Malnutrition Moderate Protein-Calorie Malnutrition Severe Protein-Calorie Malnutrition Other condition, please specify Unable to determine (Last Revision: January 2018) Moderate Protein-Calorie Malnutrition 04/13/19 @ 22:34 [id number]
[2019-04-06 09:57] LABS: ABG HCO3 43 mmol/L (21-25)
[2019-04-06] MEDS: PANTOPRAZOLE 40 MG/10 ML VIAL IVP SCH (10:12)
[2019-04-06] MEDS: MEMANTINE 10 MG TAB PO SCH (10:13)
[2019-04-06] MEDS: DONEPEZIL 10 MG TAB OG-TUBE SCH (10:14)
[2019-04-06] MEDS: CEFEPIME 2 GM in SODIUM CHLORIDE 0.9% 100 ML IVPB SCH (10:14)
[2019-04-06] MEDS: HEPARIN SODIUM,PORCINE 5,000 UNIT/ML 1 ML VIAL SQ SCH (10:22)
[2019-04-06] MEDS ORDERED: MORPHINE SULFATE 2 MG/ML SYRINGE IV PRN (10:49)
[2019-04-06] MEDS ORDERED: MORPHINE SULFATE 4 MG/ML SYRINGE IVP ONE (10:49)
[2019-04-06] MEDS ORDERED: ATROPINE OPHTH SOLN 1% 5ML BTL SUBLINGUAL PRN (10:49)
[2019-04-06] MEDS ORDERED: ONDANSETRON 4 MG/2 ML VIAL IVP PRN (10:49)
[2019-04-06 10:59] VITALS: RESP 25
[2019-04-06] MEDS ORDERED: MORPHINE SULFATE (100 MG/2 ML) 100 MG in SODIUM CHLORIDE 0.9% 100 ML IV SCH (11:00)
[2019-04-06 11:04] VITALS: PULSE 76
[2019-04-06 11:14] VITALS: BMI 25.9
[2019-04-06 11:45] LABS: Appearance,Urine Clear (Clear); Bilirubin,Urine Negative (Negative); Blood,Urine Moderate (Negative); Color,Urine Yellow; Glucose,Urine (UA) Negative (Negative); Ketones,Urine Negative (Negative); Leukocyte Esterase,Urine Small (Negative); Mucus,Urine Rare /hpf; Nitrite,Urine Negative (Negative); PH, Urine 6.5 (5.0-8.0); Protein,Urine 1+ (Negative); RBC,Urine >182 /hpf (0-5); Specific Gravity,Urine 1.024 (1.001-1.035); Squamous Epithelial Cell,Urine <1 /hpf (0-4); Urobilinogen,Urine <2.0 mg/dL (<2.0); WBC,Urine 30 /hpf (0-5)
[2019-04-06] MEDS ORDERED: HYDROCORTISONE SUCCINATE 100 MG/2 ML VIAL IV SCH (12:00)
[2019-04-06] MEDS ORDERED: GLYCOPYRROLATE 0.2 MG/ML 2 ML VIAL IVP PRN (13:09)
--- NOTE | 2019-04-06 14:00 | P.PN ---
Subjective Progress Note Date: 04/06/19 This is a 69-year-old female patient is being seen in follow-up in the intensive care unit. The patient is being seen on 04/05/2019. The patient remains intubated on a mechanical ventilator. This morning the patient is on a tidal volume of 650 with an FiO2 of 50% and a PEEP of 12 and a respiratory rate of 28. Chest x-ray showing left basilar opacity. ET tube is in a good location. NG tube is in a good location. The patient is well sedated with propofol and the patient is currently on 75 mg of propofol. The patient is also receiving enteral feeding for nutritional support with high protein vital at the rate of 33 mL an hour. The patient had a blood gas today that showed a pH of 7.42 with a pCO2 of 62 and pO2 of 97. Based on these, I dropped the PEEP down to 10. Rest of the vent settings are Unchanged per no symptoms and orotracheal secretions. The patient is a still hemodynamically unstable and the patient is currently on 0.1 g per KG per minute of levo fed infusion. Noted the patient presented to us with gram-negative septic shock that do not to be of a urinary source. The patient a complicated UTI with nephrolithiasis. The patient underwent a emergent urologic evaluation with insertion of double-J stent in the right ureter. Cultures were positive for Proteus and the patient is currently on IV antibiotics utilizing IV cefepime. Still on pressors. Fluid infusion is running at KVO. Neck fluid balance has been positive over the past 3-4 days. The patient was given the option of PEG and trach by Dr Hernandez and the final decision has not done yet. Meanwhile, the patient has a white cell count of 5.7. Hemoglobin stable at 8.2. Renal function stable with a creatinine of 0.28. She is tolerating her tube feeds. No cardiac arrhythmias and her rhythm is sinus. Echocardiogram is to follow today. The patient has been in the ICU for the past 9 days. On today's evaluation of 04/06/2019, the patient is to the intensive care unit intubated on a mechanical ventilator. The patient is currently at the respiratory rate of 28 with a PEEP of 12 FiO2 of 50% and a tidal volume of 450. ET tube is in a good location. The patient is sedated with propofol at 75 g. The blood gases from today shows essentially no major interval change compared to yesterday. The patient's pH is at 7.47 with a pCO2 of 59 and pO2 of 67. The patient had a follow-up chest x-ray which was essentially stable findings and the findings are essentially unchanged compared to yesterday. Hemodynamically still hypotensive and the patient is still requiring levo fed and the doses ranging between 8-10 g per minute. The patient is afebrile. The patient is no significant leukocytosis on today's evaluation. White cell count is at 6.8. The patient is receiving enteral feeding for nutritional support. Note that the patient has significant level of dementia with impairment of the cognitive functions. The patient also has been intubated and mechanically ventilated for more than several weeks due to complications of UTI/sepsis/gram-negative septicemia/Proteus bacteremia related to a UTI. Still pressor dependent. Cortisol level is at 15. The echo from yesterday showed a preserved LV function with an EF around 65%. There was mild pulmonary hypertension. No significant valvular abnormalities has been noted. No pericardial effusion. The IVC was mildly dilated and there was poor respiratory collapse of the IVC with a estimated right atrial pressure of 20 mmHg. The patient is still in a positive fluid balance. Objective - Vital Signs Vital signs: Vital Signs Temp 99.0 F 04/06/19 09:00 Pulse 76 04/06/19 11:03 Resp 25 H 04/06/19 11:00 BP 112/62 04/06/19 05:00 Pulse Ox 95 04/06/19 11:00 Intake & Output 04/05/19 04/06/19 04/06/19 18:59 06:59 18:59 Intake Total 8109.596 0765.671 503.575 Output Total 1740 597 240 Balance -422.445 519.671 263.575 Weight 68.7 kg 68.7 kg Intake: IV 313 376 115 Cefepime 2 gm In Sodium 100 100 Chloride 0.9% 100 ml @ 200 mls/hr IVPB Q8HR [facility] Rx#:[id number] Pressure bag, 0.9% 33 36 15 Sodium Chloride 0.9% 1, 180 240 100 000 ml @ 20 mls/hr IV . Q24H [facility] Rx#:[id number] Intake, IV Titration 617.555 416.671 259.575 Amount Norepinephrine 8 mg In 227.351 30.649 159.575 Sodium Chloride 0.9% 250 ml @ 0.05 MCG/KG/MIN 5. 689 mls/hr IV .Q24H [facility] Rx#:[id number] Propofol 1,000 mg In 390.204 386.022 100 Empty Bag 1 bag @ Titrate IV .Q0M [facility] Rx#: [id number] Tube Feeding 297 264 99 Other 90 60 30 Output: Urine 1740 597 240 Other: Voiding Method Indwelling Catheter Indwelling Catheter Indwelling Catheter ABP, PAP, CO, CI - Last Documented Arterial Blood Pressure 115/58 - Exam Gen. appearance, comfortable sedated intubated on a mechanical ventilator. Orogastric and orotracheal tube are both in place. Head exam was generally normal. There was no scleral icterus or corneal arcus. Mucous membranes were moist. Neck was supple and without jugular venous distension, thyromegaly, or carotid bruits. Carotids were easily palpable bilaterally. There was no adenopathy. Orogastric and orotracheal tube are both in place. Lungs sounds are diminished bilaterally along with scattered rhonchi and scattered expiratory wheezes throughout the lung his bilaterally. Cardiac exam revealed the PMI to be normally situated and sized. The rhythm was regular and no extrasystoles were noted during several minutes of auscultation. The first and second heart sounds were normal and physiologic splitting of the second heart sound was noted. There were no murmurs, rubs, clicks, or gallops. Abdominal exam revealed normal bowel sounds. The abdomen was soft, non-tender, and without masses, organomegaly, or appreciable enlargement of the abdominal aorta. Extremities revealed +1 pitting edema in all 4 extremities. No cyanosis or clubbing and the patient adequate pulses in all 4 extremities. Examination of the skin revealed no evidence of significant rashes, suspicious appearing nevi or other concerning lesions. Neurologically the patient is sedated. She arouses was she's taken off sedation however she does not follow any simple commands. - Labs CBC & Chem 7: 04/06/19 04:20 04/06/19 04:20 Labs: Abnormal Lab Results - Last 24 Hours (Table) 04/05/19 04/05/19 04/06/19 Range/Units 17:22 23:40 04:20 RBC 3.01 L (3.80-5.40) m/uL Hgb 8.1 L (11.4-16.0) gm/dL Hct 26.1 L (34.0-46.0) % RDW 18.4 H (11.5-15.5) % Lymphocytes # 0.9 L (1.0-4.8) k/uL ABG pH (7.35-7.45) ABG pCO2 (35-45) mmHg ABG pO2 (83-108) mmHg ABG HCO3 (21-25) mmol/L ABG Total CO2 (19-24) mmol/L ABG O2 Saturation (94-97) % Carbon Dioxide (22-30) mmol/L Creatinine (0.52-1.04) mg/dL Glucose (74-99) mg/dL POC Glucose (mg/dL) 129 H 157 H (75-99) mg/dL Calcium (8.4-10.2) mg/dL Urine Protein (Negative) Urine Blood (Negative) Ur Leukocyte Esterase (Negative) Urine RBC (0-5) /hpf Urine WBC (0-5) /hpf Urine Mucus (None) /hpf 04/06/19 04/06/19 04/06/19 Range/Units 04:20 04:22 05:51 RBC (3.80-5.40) m/uL Hgb (11.4-16.0) gm/dL Hct (34.0-46.0) % RDW (11.5-15.5) % Lymphocytes # (1.0-4.8) k/uL ABG pH (7.35-7.45) ABG pCO2 63 H (35-45) mmHg ABG pO2 63 L (83-108) mmHg ABG HCO3 43 H* (21-25) mmol/L ABG Total CO2 45 H (19-24) mmol/L ABG O2 Saturation 91.9 L (94-97) % Carbon Dioxide 39 H (22-30) mmol/L Creatinine 0.34 L (0.52-1.04) mg/dL Glucose 145 H (74-99) mg/dL POC Glucose (mg/dL) 158 H (75-99) mg/dL Calcium 8.3 L (8.4-10.2) mg/dL Urine Protein (Negative) Urine Blood (Negative) Ur Leukocyte Esterase (Negative) Urine RBC (0-5) /hpf Urine WBC (0-5) /hpf Urine Mucus (None) /hpf 04/06/19 04/06/19 Range/Units 09:38 09:43 RBC (3.80-5.40) m/uL Hgb (11.4-16.0) gm/dL Hct (34.0-46.0) % RDW (11.5-15.5) % Lymphocytes # (1.0-4.8) k/uL ABG pH 7.47 H (7.35-7.45) ABG pCO2 59 H (35-45) mmHg ABG pO2 67 L (83-108) mmHg ABG HCO3 43 H* (21-25) mmol/L ABG Total CO2 45 H (19-24) mmol/L ABG O2 Saturation 93.6 L (94-97) % Carbon Dioxide (22-30) mmol/L Creatinine (0.52-1.04) mg/dL Glucose (74-99) mg/dL POC Glucose (mg/dL) (75-99) mg/dL Calcium (8.4-10.2) mg/dL Urine Protein 1+ H (Negative) Urine Blood Moderate H (Negative) Ur Leukocyte Esterase Small H (Negative) Urine RBC >182 H (0-5) /hpf Urine WBC 30 H (0-5) /hpf Urine Mucus Rare H (None) /hpf Assessment and Plan Plan: 1 acute hypoxic respiratory failure following a gram-negative urine checked infection and sepsis in addition to a right lower lobe pneumonia. The patient remains intubated on a mechanical ventilator and she's been on a mechanical ventilator for more than a week. 2 acute Proteus urine infection secondary to complicated UTI and secondary sepsis. 3 septic shock secondary to above and the patient continues to be on pressors, unable to cut down the pressors any further. The patient's serum cortisol level is at 15. The patient Proteus mirabilis septicemia related to a UTI. 4 dementia which is been quite advanced and based on the family's description the patient had significant impairment in her cognitive functions. 5 coronary artery disease, previously surgery was offered for her as the patient was evaluated for a CABG however she was felt to be a poor candidate for myocardial revascularization surgery. She was treated conservatively accordingly. 6 hypertension 7 hyperlipidemia 8 left hilar nodule seen on a previous CAT scan of the chest 9 sputum Mckenzie which is probably contaminant Plan Continue vent support. I met her family including the daughter and and the son-in-law and the rest of the children. I was able to explain to them the situation and a further updated to be on the baseline health condition of this patient. I came to understand that the patient has dementia and the patient is been progressively having worsening in the cognitive functions. I offered them a PEG and trach which will obviously make our ability to wean her off the sedation and try to proceed for long-term care and wean. However, the family Mckenzie understanding that she was already sick and her baseline condition was not helpful enough to proceed with long-term care. I already made arrangements for a CAT scan of the chest and repeat cultures and starting this patient status post hydrocortisone attempt to wean her off the pressors. However, I was approached by the family at a later stage this morning that they wanted to proceed with comfort care measures. I think this is quite reasonable knowing that the patient has failed to recover/wean over the past week or so and she has the shortness an improvement. No intervention for long-term care with a PEG and trach as requested by the family. Based on all this, I was agreeable to proceed with comfort care measures as recommended by the family. We'll continue to follow. This discussion with the bedside with the family including the daughter and the son-in-law and the grandkids. This evaluation was on a more than 30 minutes. Time with Patient: Greater than 30
--- NOTE | 2019-04-12 14:37 | CDI ---
Documentation Clarification Form Date: 04/12/19 From: Zeina Luong/Melanie Oliveros Phone: If questions call Melanie Arlin @ [phone], Hours-8:30 am & 5 pm Cassandra Holland Admit Date: 03/27/2019 8:26:00 PM Patient Name: Madyson Morfin Visit Number: [id number] Discharge Date: 04/06/2019 - ATTENTION: The Clinical Documentation Specialists (CDI) and [employer] Coding Staff appreciate your assistance in clarifying documentation. Please respond to the clarification below the line at the bottom and electronically sign. The CDI & [employer] Coding staff will review the response and follow-up if needed. Please note: Queries are made part of the Legal Health Record. If you have any questions, please contact the author of this message via ITS. Dr. Hernandez Sheet Can you please dictate the /Discharge Summary and include the likely/preliminary cause of ? Thank you for your assistance. MTDD
--- NOTE | 2019-04-23 08:08 | P.DS ---
Providers Date of admission: 03/27/19 20:26 Attending physician: Yuni Camejo Consults: 03/27/19 20:23 Consult Physician Stat Consulting Provider: Johnson Gaona Consult Reason/Comments: septic stone Do you want consulting provider notified?: Already Contacted Consult Physician Stat Consulting Provider: Lisbeth Walker Consult Reason/Comments: severe sepsis Do you want consulting provider notified?: Yes 04/01/19 09:03 Consult Physician Urgent Consulting Provider: Korey Lane Consult Reason/Comments: trach & PEG Do you want consulting provider notified?: Yes Primary care physician: [facility] Course: Dx: Septic shock - gram-negative sepsis - secondary to UTI Acute hypoxic respiratory failure Complicated urinary tract infection - right renal calculi causing obstruction hydronephrosis. status post stent placement Spiculated left hilar nodule right lower lobe pneumonia Hypertension Dementia COPD Coronary artery disease Dyslipidemia hospital course pt is 69 yo F with pmh of HTN, HLP, Dementia, Coronary art disease found poor candidate for revascularization procedure, who presents with progressive weakness over 3 days and fall , pt was intubated and sedated in ICU for septic shock , hydronephrosis with 5 mm kid stone s/p surgical removal and stent placement , she is been followed closely by critical care team , and urology ,however family wanted to proceed comfort care measures. please refer to critical care team note for more details , eventually pt has Patient Condition at Discharge: Critical Plan - Discharge Summary Discharge Rx Participant: Yes New Discharge Prescriptions: No Action Multivitamins, Thera [Multivitamin (formulary)] 1 tab PO DAILY Metoprolol Tartrate [Lopressor] 50 mg PO BID #60 tab Atorvastatin [Lipitor] 80 mg PO HS #30 tab Nitroglycerin Sl Tabs [Nitrostat] 0.4 mg SUBLINGUAL Q5M PRN #30 tab PRN Reason: Chest Pain Acetaminophen Tab [Tylenol] 650 mg PO Q6HR PRN #0 tab PRN Reason: Fever And/ Or Pain Aspirin EC [Ecotrin] 325 mg PO DAILY #0 tablet. traZODone HCL 150 mg PO HS risperiDONE [RisperDAL] 1 mg PO HS Memantine [Namenda] 10 mg PO DAILY Clopidogrel Bisulfate [Plavix] 75 mg PO DAILY Donepezil [Aricept] 10 mg PO DAILY Discharge Medication List Multivitamins, Thera [Multivitamin (formulary)] 1 tab PO DAILY 11/21/15 [History] Acetaminophen Tab [Tylenol] 650 mg PO Q6HR PRN #0 tab 11/28/15 [Rx] Aspirin EC [Ecotrin] 325 mg PO DAILY #0 tablet.dr 11/28/15 [Rx] Atorvastatin [Lipitor] 80 mg PO HS #30 tab 11/28/15 [Rx] Metoprolol Tartrate [Lopressor] 50 mg PO BID #60 tab 11/28/15 [Rx] Nitroglycerin Sl Tabs [Nitrostat] 0.4 mg SUBLINGUAL Q5M PRN #30 tab 11/28/15 [Rx] Clopidogrel Bisulfate [Plavix] 75 mg PO DAILY 03/27/19 [History] Donepezil [Aricept] 10 mg PO DAILY 03/27/19 [History] Memantine [Namenda] 10 mg PO DAILY 03/27/19 [History] risperiDONE [RisperDAL] 1 mg PO HS 03/27/19 [History] traZODone HCL 150 mg PO HS 03/27/19 [History] Follow up Appointment(s)/Referral(s): Zachary Patel DO [Primary Care Provider] - 1-2 days Discharge Disposition: - Preliminary Cause of Preliminary Cause of : septic shock
== END 2019-04-06 16:21 | disposition expired | DRG 853 ==
LOC: EC 16:18 → 2SICU 20:26
PROVIDERS: ADMIT Internal Medicine; ATTEND Internal Medicine
PROC: 5A1955Z Respiratory Ventilation, Greater than 96 Consecutive Hours (ICD-10-PCS; 2019-03-27)
PROC: 02HV33Z Insertion of Infusion Device into Superior Vena Cava, Percutaneous Approach (ICD-10-PCS; 2019-03-27)
PROC: 0T768DZ Dilation of Right Ureter with Intraluminal Device, Via Natural or Artificial Opening Endoscopic (ICD-10-PCS; principal; 2019-03-27 20:53)
PROC: 0D9670Z Drainage of Stomach with Drainage Device, Via Natural or Artificial Opening (ICD-10-PCS; 2019-03-28)
PROC: 3E0G76Z Introduction of Nutritional Substance into Upper GI, Via Natural or Artificial Opening (ICD-10-PCS; 2019-03-28)
PROC: 02HV33Z Insertion of Infusion Device into Superior Vena Cava, Percutaneous Approach (ICD-10-PCS; 2019-04-02)
DX: A41.59 Other Gram-negative sepsis (principal); R65.21 Severe sepsis with septic shock; J96.01 Acute respiratory failure with hypoxia; J18.1 Lobar pneumonia, unspecified organism; J44.0 Chronic obstructive pulmonary disease with (acute) lower respiratory infection; E87.2 Acidosis; N13.6 Pyonephrosis; E44.0 Moderate protein-calorie malnutrition; I27.20 Pulmonary hypertension, unspecified; F03.90 Unspecified dementia, unspecified severity, without behavioral disturbance, psychotic disturbance, mood disturbance, and anxiety; Z66 Do not resuscitate; Z51.5 Encounter for palliative care; E78.5 Hyperlipidemia, unspecified; I10 Essential (primary) hypertension; I25.10 Atherosclerotic heart disease of native coronary artery without angina pectoris; F32.9 Major depressive disorder, single episode, unspecified; F41.1 Generalized anxiety disorder; R91.1 Solitary pulmonary nodule; M19.90 Unspecified osteoarthritis, unspecified site; Z68.26 Body mass index [BMI] 26.0-26.9, adult; F17.200 Nicotine dependence, unspecified, uncomplicated; Z79.82 Long term (current) use of aspirin; Z79.02 Long term (current) use of antithrombotics/antiplatelets; Z79.899 Other long term (current) drug therapy; W18.11XA Fall from or off toilet without subsequent striking against object, initial encounter; Y92.009 Unspecified place in unspecified non-institutional (private) residence as the place of occurrence of the external cause
CPT/HCPCS: 36415; 36556; 36573; 70450; 71045; 74177; 80048; 80053; 80202; 81001; 82533; 82803; 82805; 83605; 83735; 84100; 84132; 84484; 85025; 85610; 87040; 87070; 87077; 87086; 87186; 87205; 93005; 93306; 94002; 94003; 94640; 96365; 96366; 99291